=== PATIENT | male | born 1935 | race Caucasian/White ===

== ENCOUNTER 2017-08-28 16:17 | Emergency (ER) | payer MEDICARE, BC ==
[2017-08-28 16:42] VITALS: BP 192/108
--- NOTE | 2017-08-28 17:13 | UC ---
Complaint Male HPI - HPI Summary HPI Summary: Patient has lower abdominal pain pain with urination no flank pain no fevers chills no drip. Patient has had urinary tract infections in the past feels exactly the same - History of Current Complaint Chief Complaint: UCGU Stated Complaint: STOMACH/BLADDER PAIN Time Seen by Provider: 08/28/17 17:03 Hx Obtained From: Patient Onset/Duration: Sudden Onset, Lasting Days - 2, Still Present Timing: Constant Pain Intensity: 0 Location: Suprapubic Character: Colicy Alleviating Factor(s): Nothing Associated Signs And Symptoms: Positive: Hematuria, Dysuria - Allergies/Home Medications Allergies/Adverse Reactions: Allergies Allergy/AdvReac Type Severity Reaction Status Date / Time No Known Allergies Allergy Verified 08/28/17 16:44 PMH/Surg Hx/FS Hx/Imm Hx Previously Healthy: No Endocrine History: Dyslipidemia Cardiovascular History: Cardiac Disease, Hypertension - Surgical History Surgical History: Yes Surgery Procedure, Year, and Place: prostatectomy with radiation; 09/26/13 cardiac stents and 2 stent 2012 - Family History Known Family History: Positive: None - Social History Occupation: Retired Lives: With Family Alcohol Use: None Substance Use Type: None Smoking Status (MU): Former Smoker Type: Cigarettes When Did the Patient Quit Smoking/Using Tobacco: 40 years ago - Immunization History Most Recent Influenza Vaccination: 2012 Most Recent Tetanus Shot: 2009 Most Recent Pneumonia Vaccination: 2007 Review of Systems Constitutional: Negative Skin: Negative Eyes: Negative ENT: Negative Respiratory: Negative Cardiovascular: Negative Gastrointestinal: Negative Genitourinary: Dysuria, Urgency Motor: Negative Neurovascular: Negative Musculoskeletal: Negative Neurological: Negative Psychological: Negative Is Patient Immunocompromised?: No All Other Systems Reviewed And Are Negative: Yes Physical Exam Triage Information Reviewed: Yes Appearance: Well-Appearing, No Pain Distress, Well-Nourished Vital Signs: Initial Vital Signs Temp 97.6 F 08/28/17 16:37 Pulse 88 08/28/17 16:37 Resp 14 08/28/17 16:37 BP 192/108 08/28/17 16:37 Pulse Ox 98 08/28/17 16:37 Vital Signs Reviewed: Yes Eye Exam: Normal Eyes: Positive: Conjunctiva Clear ENT Exam: Normal ENT: Positive: Normal ENT inspection, Hearing grossly normal. Negative: Nasal congestion, Nasal drainage, Muffled voice, Hoarse voice, Dental tenderness Dental Exam: Normal Neck exam: Normal Neck: Positive: Supple, Nontender Respiratory Exam: Normal Respiratory: Positive: Chest non-tender, No respiratory distress, No accessory muscle use Cardiovascular Exam: Normal Cardiovascular: Positive: RRR, Pulses Normal, Brisk Capillary Refill Abdominal Exam: Normal Abdomen Description: Negative: CVA Tenderness (R), CVA Tenderness (L) Musculoskeletal Exam: Normal Musculoskeletal: Positive: Strength Intact, ROM Intact Neurological Exam: Normal Neurological: Positive: Alert, Muscle Tone Normal Psychological Exam: Normal Skin Exam: Normal Diagnostics - Laboratory Diagnostic Studies Completed/Ordered: +nitrates, +blood, +protien+Leuks----Past MRSA in Urine Complaint Male Course/Dx - Course Course Of Treatment: Culture urine, start Bactrim and Pyridium, follow with urology. We'll follow blood pressure with PCP this week - Differential Dx/Diagnosis Provider Diagnoses: Urinary tract infection, hypertension in poor control Discharge - Sign-Out/Discharge Documenting (check all that apply): Discharge/Admit/Transfer - Discharge Plan Condition: Stable Disposition: HOME Prescriptions: Phenazopyridine TAB* [Pyridium 100 mg TAB*] 100 mg PO TID PRN #9 tab PRN Reason: urinary pain and burning Sulfamethox/Trimethoprim DS* [Bactrim DS 800/160 TAB*] 1 tab PO BID #20 tab Patient Education Materials: Phenazopyridine (By mouth), Urinary Tract Infection in Men (ED), Hematuria (ED), Hypertension (ED), Urinary Tract Infection in Older Adults (ED) Referrals: Edwin Márquez MD [Primary Care Provider] - 1 Week - Billing Disposition and Condition Condition: STABLE Disposition: HOME
== END 2017-08-28 17:30 | disposition home or self-care (01) ==
LOC: UCEAST 16:17
DX: N39.0 Urinary tract infection, site not specified (principal); R31.9 Hematuria, unspecified; Z87.440 Personal history of urinary (tract) infections; E78.5 Hyperlipidemia, unspecified; I10 Essential (primary) hypertension; I51.9 Heart disease, unspecified; Z95.5 Presence of coronary angioplasty implant and graft; Z86.14 Personal history of Methicillin resistant Staphylococcus aureus infection; Z87.891 Personal history of nicotine dependence
CPT/HCPCS: 81003; 87077; 87086; 87186; 99212; G0463

== ENCOUNTER 2017-09-01 07:06 | Observation (INO) | payer MEDICARE, BC ==
[2017-09-01] MEDS ORDERED: NS 0.9% 1000 ML* 1,000 ML IV ONE (07:41)
[2017-09-01] MEDS ORDERED: cefTRIAXone(*) 1 GM in NS 0.9% 50 ML* 50 ML IVPB ONE (07:49)
--- NOTE | 2017-09-01 07:58 | ED ---
Niurka Diaz Gabriel, scribed for Filomena Leggett MD on 09/01/17 at 0740 . Altered Mental Status - HPI Summary HPI Summary: This patient is a 82 year [facility] by his from his home c/o AMS. states she found him decreased responsive and vomiting this morning so she contacted EMS. Pt was eating normally and not vomiting yesterday , although he was slightly confused yesterday. Patients reports blood glucose of 322, pt is on metformin. Patients denies diarrhea. Pt witha h/o prostate CA and recurrent UTIs. Pt was evaluated at onn 08/28/17 and dx with a UTI - started on Bactrim. Pt developed vomiting - thought to be related to bactrim - so was changed to Doxycycline. Pt has urinary incontinence at baseline related to prostate cancer treatment. is unsure if he took his medications last night and this morning. Pt does have a h/o htn - unsure of medications. states this morning pt seems confused and is having difficulty with conversation - states occurred a little yesterday, but was short lived. Pt went normally at 2130 last night when he went to bed. Patients medication list as entered at last weeks visit reviewed during this visit. LEVEL 5 CAVEAT: exam limited due to the patients decreased ability to respond. - History Of Current Complaint Chief Complaint: EDAltMentalStatus Stated Complaint: VOMITING Time Seen by Provider: 09/01/17 07:22 Hx Obtained From: Family/House Mover Supervisor Onset/Duration: Still Present, Suddenly Timing: Constant Severity Initially: Moderate Severity Currently: Moderate Character: Confusion Associated Signs And Symptoms: Positive: Vomiting - Allergies/Home Medications Allergies/Adverse Reactions: Allergies Allergy/AdvReac Type Severity Reaction Status Date / Time sulfamethoxazole Allergy Nausea And Verified 09/02/17 03:41 [From Bactrim] Vomiting trimethoprim [From Bactrim] Allergy Nausea And Verified 09/02/17 03:41 Vomiting Home Medications: Home Medications Aspirin EC TAB* [Ecotrin EC Low Dose 81 MG*] 81 mg PO DAILY 09/01/17 [History Confirmed 09/01/17] Cholecalciferol TAB* [Vitamin D TAB*] 1,000 unit PO DAILY 09/01/17 [History Confirmed 09/01/17] Cinnamon Bark [Cinnamon] 500 mg PO EVERY OTHER DAY 09/01/17 [History Confirmed 09/01/17] Clopidogrel TAB* [Plavix TAB*] 75 mg PO DAILY 09/01/17 [History Confirmed ] Cranberry Fruit Extract [Cranberry] 4,200 mg PO DAILY 09/01/17 [History Confirmed 09/01/17] Cyanocobalamin TAB* [Vitamin B12 TAB*] 500 mcg PO DAILY 09/01/17 [History Confirmed 09/01/17] Metoprolol Succinate XL TAB* [Toprol XL TAB*] 50 mg PO BID 09/01/17 [History Confirmed 09/01/17] Multivitamins/Minerals TAB* [Theragran/minerals TAB*] 0.5 tab PO DAILY 09/01/17 [History Confirmed 09/01/17] Nitroglycerin TAB 0.4 MG* 0.4 mg SL Q5M PRN 09/01/17 [History Confirmed 09/01/17 ] Ubidecarenone [Co Q-10] 100 mg PO DAILY 09/01/17 [History Confirmed 09/01/17] glipiZIDE TAB.XL* [Glucotrol Xl*] 10 mg PO DAILY 09/01/17 [History Confirmed ] PMH/Surg Hx/FS Hx/Imm Hx Previously Healthy: Yes Endocrine/Hematology History: Reports: Hx Anticoagulant Therapy - ASA, Hx Diabetes Cardiovascular History: Reports: Hx Coronary Artery Disease, Hx Hypercholesterolemia, Hx Hypertension - recent decrease in meds, Hx Valvular Heart Disease Denies: Hx Angina, Hx Myocardial Infarction Respiratory History: Denies: Hx Asthma, Hx Chronic Obstructive Pulmonary Disease (COPD) History: Reports: Other Problems/Disorders - radical prostatectomy 15 yrs ago Neurological History: Denies: Hx CVA - Cancer History Cancer Type, Location and Year: prostate Hx Radiation Therapy: Yes - Surgical History Surgery Procedure, Year, and Place: prostatectomy with radiation; 09/26/13 cardiac stents and 2 stent 2012 Hx Anesthesia Reactions: No Infectious Disease History: No Infectious Disease History: Denies: History Other Infectious Disease, Traveled Outside the [place] in Last 30 Days - Family History Known Family History: Positive: None Negative: Hypertension, Seizure Disorder - Social History Occupation: Retired Lives: With Family Alcohol Use: None Substance Use Type: Reports: None Smoking Status (MU): Former Smoker Type: Cigarettes Review of Systems - ROS Summary Review of Systems Summary: LEVEL 5 CAVEAT: exam limited due to the patients decreased ability to respond. Positive: Fatigue Positive: Vomiting Positive: other - incontinence at baseline Skin: Negative Neurological: Other - AMS All Other Systems Reviewed And Are Negative: No - Comments Additional Review of Systems Comments: Pt with profound confusion - level 5 Caveat Physical Exam Triage Information Reviewed: Yes Vital Signs On Initial Exam: Initial Vitals Temp Pulse Resp BP Pulse Ox 96.5 F 88 20 218/114 97 09/01/17 07:15 09/01/17 07:15 09/01/17 07:15 09/01/17 07:15 09/01/17 07:15 Vital Signs Reviewed: Yes Completion Of Physical Exam Limited Due To: Altered Mental Status, Level 5 Appearance: Positive: No Pain Distress Skin: Positive: Warm Head/Face: Positive: Normal Head/Face Inspection Eyes: Positive: HIRAL, Conjunctiva Clear ENT: Positive: Hearing grossly normal, Other - mmpasty Neck: Positive: Supple, Nontender, No Lymphadenopathy Respiratory/Lung Sounds: Positive: Clear to Auscultation, Breath Sounds Present , Decreased Breath Sounds Cardiovascular: Positive: Normal, RRR Abdomen Description: Positive: Nontender, No Organomegaly, Soft Bowel Sounds: Positive: Hypoactive Musculoskeletal: Positive: Other - Pt moves all ext Neurological: Positive: Reflexes Intact, Receptive Aphasia, Other - Pt speaking intelligible words, follows some commands 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 Negative: Alert, Oriented to Person Place, Time, EOM Palsy, Facial Droop, Slurred Speech, Dysphagia Psychiatric: Positive: Affect/Mood Appropriate AVPU Assessment: Alert - Mitzy Coma Scale Best Eye Response: 4 - Spontaneous Best Motor Response: 5 - Purposeful Movement Best Verbal Response: 4 - Confused Coma Scale Total: 13 Diagnostics - Vital Signs Vital Signs Temp Pulse Resp BP Pulse Ox 09/01/17 07:15 96.5 F 88 20 218/114 97 - Laboratory Result Diagrams: 09/02/17 05:36 09/02/17 05:36 Lab Statement: Any lab studies that have been ordered have been reviewed, and results considered in the medical decision making process. - Radiology CXR Radiology Interpretation Completed By: Radiologist - NO ACTIVE CARDIOPULMONARY DISEASE. ED physician has reviewed this radiology report. - CT CT Brain CT Interpretation Completed By: Radiologist - NO ACUTE INTRACRANIAL PATHOLOGY. CHRONIC SMALL VESSEL ISCHEMIC CHANGES. ED physician has reviewed this radiology report. - EKG 0718 Cardiac Rate: NL EKG Rhythm: Sinus Rhythm - at 85 BPM EKG Interpretation: there are inverted T waves in lead 1 and AVL, No STEMI National Institutes Of Health - NIH Scale Level of Consciousness: Responds to Minor Stimulation Ask Patient the Month and His/Her Age: Neither Correct/Aphasic Ask Pt to Open/Close Eyes and Certified Travel Counselor/Release Non-Paretic Hand: Both Correctly Best Gaze (Only Horizontal Eye Movement): Normal Facial Paresis-Pt to Smile & Close Eyes or Grimace Symmetry: Normal/Symmetrical Motor Function - Right Leg: Drifts LT 10 seconds Motor Function - Left Leg: Drifts LT 10 seconds Dysarthria (Read Several Words): Slurs Some Words Re-Evaluation - Re-Evaluation First Eval Re-Evaluation Time: 09:03 Change: Improved Comment: Pt Second Eval Re-Evaluation Time: 09:20 Change: Unchanged Comment: The patient had a rectal temperature of 100.4F and a [place] catheter will be placed because Fraser access could not be obtained. Altered Mental Statu Course/Dx - Course Course Of Treatment: Pt presents with progressive confusion over 24 hours. Pt with a h/o recurrent UTI and was started on bactrim -changed to Doxy. Pt with vomiting today. Pt wtih confusion - unable to give hx, difficulty following commands. differential includes sepsis, cva, electrolyte imbalance, hypertensive crisis,. Will finn culture, IV abx, code chacko, IVF, antipyretic, Labetolol with close BP monitoring - Diagnoses Provider Diagnoses: UTI (urinary tract infection), Hypertension, Confusion During the Visit The Following Alert/Code Occurred: Code Chacko - called at [address] Bacon - no lytics agree with plan to continue eval for sepsis and bp control - Provider Notifications Discussed Care Of Patient With: Cindi Perez Time Discussed With Above Provider: 09:05 Instructed by Provider To: Admit As Inpatient - Critical Care Time Critical Care Time: 30-74 min Discharge - Sign-Out/Discharge Documenting (check all that apply): Discharge/Admit/Transfer - Discharge Plan Condition: Good Disposition: ADMITTED TO [facility] - Billing Disposition and Condition Condition: GOOD Disposition: [facility]P-[facility] Consult Consult: 1855 I discussed patient care with Dr. Steel and they informed me there is no infarct seen on the CT. 0802 I discussed the case with Dr. Bacon and they recommended to wait for the labs results. Also the suggested to continue with the current metabolic treatment and that labetalol is acceptable for HTN control. The documentation as recorded by the Niurka rueda Gabriel accurately reflects the service I personally performed and the decisions made by me, Filomena Leggett MD.
--- NOTE | 2017-09-01 08:00 | RAD ---
HISTORY: Neurological changes COMPARISONS: None TECHNIQUE: Multiple contiguous axial CT scans were obtained of the head without intravenous contrast. FINDINGS: HEMORRHAGE/INFARCT: There is no hemorrhage or acute infarct. MASSES/SHIFT: There is no mass or shift. EXTRA-AXIAL SPACES: There are no extra-axial fluid collections. SULCI AND VENTRICLES: The sulci and ventricles are normal in size and position for the patient's stated age. CEREBRUM: There is multifocal hypoattenuation of the periventricular and subcortical white matter. BRAINSTEM: There are no focal parenchymal abnormalities. CEREBELLUM: There are no focal parenchymal abnormalities. VESSELS: There is calcification of the cavernous segments of the internal carotid arteries bilaterally and of the distal left vertebral artery. PARANASAL SINUSES: The paranasal sinuses are clear. ORBITS: The orbits are unremarkable. BONES AND SOFT TISSUE: No bone or soft tissue abnormalities are noted. OTHER: None IMPRESSION: NO ACUTE INTRACRANIAL PATHOLOGY. CHRONIC SMALL VESSEL ISCHEMIC CHANGES. PRELIMINARY FINDINGS WERE DISCUSSED WITH DR. SILVA AT APPROXIMATELY 7:56 AM ON SEPTEMBER 01, 2017.
[2017-09-01] MEDS ORDERED: Labetalol IV* 5 MG/ML 20 ML VIAL IV PUSH ONE ×2 (08:12→09:00)
[2017-09-01 08:18] LABS: ABS Basophils 0 10^3/ul (0-0.2); ABS Eosinophils 0.1 10^3/ul (0-0.6); ABS Lymphocytes 0.8 10^3/ul (1.0-4.8); ABS Monocytes 0.4 10^3/ul (0-0.8); ABS Neutrophils 9.9 10^3/ul (1.5-7.7); ABS Nucleated RBC 0 10^3/ul; Eosinophil % 0.5 % (0-6); Hematocrit 41 % (42-52); Hemoglobin 14.1 g/dl (14.0-18.0); Mean Corpuscular HGB Conc 34 g/dl (31-36); Mean Corpuscular Hemoglobin 31 pg (27-31); Mean Corpuscular Volume 91 fL (80-94); Nucleated Red Blood Cells % 0; Platelet Count 201 10^3/ul (150-450); Red Blood Count 4.55 10^6/ul (4.0-5.4); Red Cell Distribution Width 13 % (10.5-15); White Blood Count 11.2 10^3/ul (3.5-10.8)
[2017-09-01 08:35] LABS: INR 0.93 (0.77-1.02)
[2017-09-01 08:36] LABS: EGFR Non-African American 65.5 (>60)
--- NOTE | 2017-09-01 08:47 | RAD ---
HISTORY: Neurological changes COMPARISONS: None VIEWS: 1: frontal portable view of the chest at 8:25 AM. The left costophrenic angle is cut off FINDINGS: LINES AND TUBES: None. CARDIOMEDIASTINAL SILHOUETTE: The cardiomediastinal silhouette is normal for portable technique. PLEURA: The right costophrenic angle is sharp. The left costophrenic angle is cut off. No pleural abnormalities are noted. LUNG PARENCHYMA: The lungs are clear. ABDOMEN: The upper abdomen is clear. There is no subphrenic gas. BONES AND SOFT TISSUES: The patient is status post median sternotomy. IMPRESSION: NO ACTIVE CARDIOPULMONARY DISEASE.
[2017-09-01] MEDS ORDERED: Acetaminophen SUPP* 650 MG SUPP PR ONE (09:21)
[2017-09-01] MEDS ORDERED: hydrALAZINE IV* 20 MG/ML VIAL IV SLOW PU PRN (10:10)
[2017-09-01] MEDS ORDERED: Acetaminophen TAB* 325 MG PO PRN (10:11)
[2017-09-01] MEDS ORDERED: Dextrose 50% Syringe 50 ML* 25 GM/50 ML SYRINGE IV PUSH PRN (10:12)
[2017-09-01] MEDS ORDERED: Magnesium Sulfate IV* 3 GM in NS 0.9% 100 ML* 100 ML IVPB ONE (11:00)
--- NOTE | 2017-09-01 12:53 | HP ---
CC: Dr. Silverio Márquez.* HISTORY AND PHYSICAL: DATE OF ADMISSION: 09/01/17. PRIMARY CARE PROVIDER: Edwin Márquez MD. ATTENDING PHYSICIAN: Cindi ePrez MD * (dictated by Jessica Zavala NP). CHIEF COMPLAINT: Confusion. HISTORY OF PRESENT ILLNESS: Mr. Lorenz is an 82-year-old male with past medical history significant for diabetes mellitus, hypertension, prostate cancer status post radical prostatectomy and radiation therapy, urinary incontinence, coronary artery disease, hyperlipidemia, and osteoarthritis who had been in his usual state of health leading up to 08/28/17 when he was seen at urgent care and was diagnosed with urinary tract infection and started on Bactrim. The patient is confused, unable to answer any questions and HPI and history all obtained from the patient's and medical record. When the patient's sensitivities came back and he was complaining of vomiting, he was changed to doxycycline for his UTI by a provider at urgent care. According to his , he was in his normal state of health yesterday, although he had had momentary confusion that quickly resolved yesterday. She states that he has had no complaints of fever, chills, chest pain, shortness of breath, abdominal pain, urinary symptoms. She states he has had nausea and vomiting secondary to the Bactrim he was taking. He has urinary incontinence secondary to history of radical prostatectomy and pelvic radiation. He was in his normal state of health at approximately 9:30 last night when he went to bed. He woke up this morning and was found to be confused by his . She is unsure if he has taken any of his medications last night or this morning. Patient was having difficulty having a conversation this morning. Due to his confusion she called EMS. While in the emergency room, the patient was found to be hypertensive with systolic blood pressures into the two-teens and the diastolic blood pressures into the one- teens. He had labs drawn that were remarkable for mild leukocytosis with a white blood cell count of 11.2. He was found to have hypomagnesemia. He did not have an elevated lactic acid. He had a low grade fever of 100.6 rectally. He received labetalol when his blood pressure improved down to the 140s systolically. The patient continued to have confusion. He was started on ceftriaxone for his UTI. He previously grew E. coli and it was sensitive to ceftriaxone. He had an NIH scale at 7:40 am of 7. He also received 1 L normal saline. The hospitalists were asked to evaluate the patient for admission. PAST MEDICAL HISTORY: 1. Diabetes mellitus. 2. Hypertension. 3. Prostate cancer, status post prostatectomy and radiation. 4. Urinary incontinence secondary to prostatectomy. 5. Coronary artery disease. 6. Hyperlipidemia. 7. Osteoarthritis. PAST SURGICAL HISTORY: 1. Status post radical prostatectomy. 2. Status post porcine aortic valve replacement. 3. Status post coronary artery bypass graft x1 vessel. 4. Status post 8 coronary artery stents. HOME MEDICATIONS: Include, 1. Cranberry extract 4200 mg oral daily. 2. CoQ-10 100 mg oral daily. 3. Vitamin B12 at 500 mcg oral daily. 4. Nitroglycerin 0.4 mg sublingual every 5 minutes as needed for chest pain. 5. Multivitamin half a tab oral daily. 6. Cinnamon bark 500 mg oral every other day. 7. Vitamin D 1000 units oral daily. 8. Elmiron 100 mg oral 3 times daily. 9. Plavix 75 mg oral daily. 10. Aspirin 81 mg oral daily. 11. Glipizide XL 10 mg oral daily. 12. Metoprolol succinate 50 mg oral twice daily. 13. Losartan 25 mg oral daily. 14. Metformin 500 mg oral every morning. 15. Metformin 1000 mg oral every evening. 16. Doxycycline 100 mg oral twice daily. 17. Atorvastatin 40 mg oral daily at bedtime. 18. Pyridium 100 mg oral 3 times as needed for urinary discomfort. 19. Amoxicillin 500 mg oral 2 hours prior to dental appointment. ALLERGIES: BACTRIM causes nausea and vomiting. FAMILY HISTORY: Patient's father passed from an ME in his 40s. He had a history of rheumatic heart disease. He had a brother who had heart disease. Patient's daughter has a history of diabetes mellitus. He has no family history of cancer. SOCIAL HISTORY: The patient is a former smoker. He has an approximate 16-year smoking history. According to his , he does not drink alcohol or use recreational drugs. His Shannon Lorenz with his daughter Qiana will be his surrogate decision makers in the event he is unable to make decisions for himself. REVIEW OF SYSTEMS: I performed an 11-point review of systems. All the pertinent positives and negatives are mentioned in the history of present illness. The remaining review of systems is negative. PHYSICAL EXAMINATION GENERAL APPEARANCE: The patient is alert, pleasant, and appears to be in no acute distress. VITAL SIGNS: Temperature 100.6, heart rate 85, respiratory rate 16, O2 sat 96% on room air, blood pressure 118/110. HEENT: Normocephalic, atraumatic. Pupils are equal and reactive to light. Extraocular movements are intact. RESPIRATORY: There is no accessory muscle use. The lungs are clear to auscultation bilaterally. CARDIOVASCULAR: Regular rate and rhythm, S1 and S2 present. There are no murmurs, rubs, or gallops heard. ABDOMEN: Soft, nontender, nondistended. Bowel sounds present x4. EXTREMITIES: There is no lower extremity edema. DP and PT pulses are 1+ and symmetric. NEUROLOGICAL: Cranial nerves II through XII are grossly intact. He has equal hand manager farm, equal dorsi and plantar flexion. He is able to lift both legs off the bed. His smile is symmetric. The patient is able to follow most commands. He would not stick his tongue out for me. MUSCULOSKELETAL: There is no clubbing or cyanosis noted. The patient exhibits good strength in all extremities. The patient is alert and confused. He is oriented to self only. PSYCHOLOGICAL: The patient is calm and mostly cooperative. SKIN: There are no rashes or abnormalities seen. DIAGNOSTIC STUDIES/LABORATORY DATA: Sodium 133, potassium 5.0, chloride 100, CO2 25, BUN 22, creatinine 1.08, glucose 265, white blood cell count of 11.2, hemoglobin 14.1, hematocrit 41, platelet count 206, magnesium 1.6, CRP 10.06, lactic acid 1.6. EKG shows a sinus rhythm at a rate of 85. There is flat T-waves in V5 and 6 and T- wave inversion in aVL. When compared to previous EKG from 09/27/13, this is similar with the exception that he had T-wave inversion in V5 to V6 at that time. Brain CT from today. Radiologist's impression: No acute intracranial pathology. Small chronic vessel ischemic changes. Chest x-ray from today. Radiologist's impression: No active cardiopulmonary disease. IMPRESSION: Mr. Lorenz is an 82-year-old male with a past medical history significant for diabetes mellitus, hypertension, prostate cancer, urinary incontinence, coronary artery disease, hyperlipidemia, and osteoarthritis who presents to the emergency room with confusion after recently being diagnosed with a urinary tract infection. He will be admitted as an observation for confusion, UTI, and hypertensive emergency. ASSESSMENT/PLAN: 1. Hypertensive emergency. I suspect this is causing some of the patient's confusion. His systolic blood pressures were in the two-teens upon arrival to the emergency room. While in the emergency room, he received labetalol and his blood pressure improved to the 140s systolic. We will continue him on his home oral antihypertensives and as needed hydralazine. 2. Confusion. Again, I believe, this is secondary to hypertensive emergency. It could also be secondary to a metabolic cause such as his urinary tract infection. We are going to continue him on IV ceftriaxone. They were unable to obtain a urinalysis in the emergency room. We will attempt to get another one urinalysis. We will get neurological checks every 4 hours. 3. Hypomagnesemia. The patient will receive magnesium replacement. We will check in the morning. 4. Urinary tract infection. The patient was diagnosed with a urinary tract infection on 08/28/17 at which time he was started he was started on Bactrim. Due to nausea and vomiting he was transitioned to doxycycline. The plan would be to continue the patient on ceftriaxone and try to obtain another set of blood cultures drawn. I do not feel that he has sepsis at this time. He is nontoxic appearing. He has no lactic acidosis. He has a mild fever and a mild leukocytosis. I will check a renal and bladder ultrasound. 5. Diabetes mellitus. We will hold the patient home metformin and glipizide. We will place him on Lispro sliding scale with fingersticks a.c. and h.s. 6. Hyperlipidemia. The patient will be continued on his home statin. 7. Coronary artery disease. Patient has no signs of an ME at this time. He will be continued on his home aspirin, Plavix, metoprolol and statin. 8. History of prostate cancer. The patient is status radiation and radical prostatectomy. He has had urinary incontinence for several years. We do provide him with supportive care for his urinary incontinence. He will continue to follow his primary as outpatient. 9. Fluids, electrolytes and nutrition. The patient will be on a heart-healthy consistent carbohydrate diet. 10. Code status. Full code. 11. DVT prophylaxis. He is at high risk and will have subcu heparin. 12. Disposition. Observation. TIME SPENT: Time for this admission was approximately 60 minutes, greater than half of that was spent with the patient and his discussing medications, past medical history, the events leading up to his arrival today, performing a physical examination. The case has been reviewed with the attending, Dr. Perez, who agrees with the plan of care. Reviewed by LENNOX CLEARY 09/01/17 [id number] [id number]/[facility] #: [id number] MTDD
[2017-09-01] MEDS: NS 0.9% 1000 ML* 1,000 ML IV SCH (13:03)
[2017-09-01] MEDS: Insulin LISPRO* 1 UNITS UNIT SUBCUT SCH ×2 (13:19→17:03)
[2017-09-01] MEDS: Heparin VIAL(*) 5000 UNITS/ML VIAL (FIVE THOUSAND) SUBCUT SCH ×2 (13:19→22:32)
[2017-09-01] MEDS: Metoprolol Succinate XL TAB* 50 MG PO SCH ×2 (13:19→22:31)
[2017-09-01] MEDS: Losartan TAB* 25 MG PO SCH (13:19)
[2017-09-01] MEDS: [UNRECOGNIZED DRUG - OTHER] PO SCH ×2 (13:24→22:33)
--- NOTE | 2017-09-01 15:25 | RAD ---
Indication: Urinary tract infection. Incontinent. Comparison: December 02, 2010 CT. Technique: Ultrasound kidneys and urinary bladder. Report: 11.3 x 5.6 x 5.5 cm RIGHT kidney excluding 3.8 x 4.1 x 4.2 cm exophytic simple cyst at the inferior pole. Normal renal cortical echogenicity. No conspicuous stones or hydronephrosis. 11.3 x 5.8 x 4.9 cm LEFT kidney with 3.0 x 2.2 x 3.6 cm exophytic cyst at the inferior pole. Normal cortical echogenicity. No conspicuous stones or hydronephrosis. Prevoid urinary bladder volume estimated at 161 mL. 2 mm bladder wall thickness. No focal bladder lesions visualized. The patient was unable to void with Alzheimer disease and incontinence limiting active voiding for the exam. Bilateral ureteral jets documented. IMPRESSION: 1. Negative for obstructive uropathy. 2. No visualized urolithiasis. 3. Prevoid urinary bladder volume estimated at 161 mL. 2 mm bladder wall thickness. No focal bladder lesions visualized. The patient was unable to void with Alzheimer disease and incontinence limiting active voiding for the exam.
[2017-09-01 17:03] LABS: Urine Appearance Cloudy; Urine Blood Negative (Negative); Urine Color Yellow; Urine Ketones Negative (Negative); Urine Protein Negative (Negative); Urine Specific Gravity 1.019 (1.010-1.030); Urine Urobilinogen Negative (Negative)
[2017-09-01] MEDS ORDERED: Atorvastatin* 40 MG TAB PO SCH (21:00)
[2017-09-02] MEDS: NS 0.9% 1000 ML* 1,000 ML IV SCH (05:33)
[2017-09-02] MEDS: Heparin VIAL(*) 5000 UNITS/ML VIAL (FIVE THOUSAND) SUBCUT SCH ×2 (05:33→13:11)
[2017-09-02 05:50] LABS: ABS Basophils 0 10^3/ul (0-0.2); ABS Eosinophils 0.1 10^3/ul (0-0.6); ABS Lymphocytes 1.6 10^3/ul (1.0-4.8); ABS Monocytes 0.5 10^3/ul (0-0.8); ABS Nucleated RBC 0 10^3/ul; Eosinophil % 1.8 % (0-6); Hematocrit 37 % (42-52); Hemoglobin 12.8 g/dl (14.0-18.0); Lymphocyte % 25.3 % (25-47); Mean Corpuscular HGB Conc 35 g/dl (31-36); Mean Corpuscular Hemoglobin 32 pg (27-31); Mean Corpuscular Volume 91 fL (80-94); Mean Platelet Volume 8.1 um3 (7.4-10.4); Nucleated Red Blood Cells % 0; Platelet Count 161 10^3/ul (150-450); Red Blood Count 4.08 10^6/ul (4.0-5.4); Red Cell Distribution Width 13 % (10.5-15); White Blood Count 6.2 10^3/ul (3.5-10.8)
[2017-09-02 06:10] LABS: EGFR Non-African American 73.2 (>60)
[2017-09-02] MEDS: Metoprolol Succinate XL TAB* 50 MG PO SCH (08:09)
[2017-09-02] MEDS: Losartan TAB* 25 MG PO SCH (08:09)
[2017-09-02] MEDS: Insulin LISPRO* 1 UNITS UNIT SUBCUT SCH ×2 (08:10→12:03)
[2017-09-02] MEDS: [UNRECOGNIZED DRUG - OTHER] PO SCH ×2 (08:17→13:13)
[2017-09-02] MEDS ORDERED: cefTRIAXone(*) 1 GM in NS 0.9% 50 ML* 50 ML IVPB SCH (09:00)
[2017-09-02] MEDS ORDERED: Cyanocobalamin TAB* 500 MCG PO SCH (09:00)
[2017-09-02] MEDS ORDERED: Cholecalciferol TAB* 1000 UNITS PO SCH (09:00)
[2017-09-02] MEDS ORDERED: Aspirin EC TAB* 81 MG TAB.EC PO SCH (09:00)
[2017-09-02] MEDS ORDERED: Clopidogrel TAB* 75 MG PO SCH (09:00)
[2017-09-02] MEDS ORDERED: Multivitamins/Minerals TAB PO SCH (09:00)
--- NOTE | 2017-09-02 10:57 | PN ---
Subjective Date of Service: 09/02/17 Interval History: Mr. Lorenz reports that he is feeling much better and his family confirms that he is back to baseline in terms of mentation. He and his family are very eager for discharge to home. Objective Active Medications: Acetaminophen (Tylenol Tab*) 650 mg PO Q4H PRN Aspirin (Aspirin Ec Tab*) 81 mg PO DAILY HAZEL Atorvastatin Calcium (Lipitor*) 40 mg PO BEDTIME HAZEL Cholecalciferol (Vitamin D Tab*) 1,000 units PO DAILY HAZEL Clopidogrel Bisulfate (Plavix Tab*) 75 mg PO DAILY HAZEL Cyanocobalamin (Vitamin B12 Tab*) 500 mcg PO DAILY HAZEL Dextrose (D50w Syringe 50 Ml*) 12.5 gm IV PUSH .FOR FS < 60 - SS PRN Heparin Sodium (Porcine) (Heparin Vial(*)) 5,000 units SUBCUT Q8HR HAZEL Hydralazine HCl (Apresoline Iv*) 5 mg IV SLOW PU Q6H PRN Ceftriaxone Sodium 1 gm/ (Sodium Chloride) 50 mls @ 200 mls/hr IVPB Q24H HAZEL Sodium Chloride (Ns 0.9% 1000 Ml*) 1,000 mls @ 75 mls/hr IV PER RATE HAZEL Insulin Human Lispro (Humalog*) 0 - 10 units SUBCUT AC HAZEL Losartan Potassium (Cozaar Tab*) 25 mg PO DAILY HAZEL Metoprolol Succinate (Toprol Xl Tab*) 50 mg PO BID HAZEL Multivitamins/Minerals (Theragran/Minerals Tab*) 0.5 tab PO DAILY HAZEL Pentosan Polysulfate Sodium (Elmiron (Nf)) 100 mg PO TID [facility] Vital Signs: Temp Pulse Resp BP Pulse Ox 99.0 F 78 14 166/76 97 09/02/17 07:13 09/02/17 08:54 09/02/17 07:13 09/02/17 08:54 09/02/17 08:54 Oxygen Devices in Use Now: None Appearance: Male lying in bed in NAD Eyes: No Scleral Icterus Ears/Nose/Mouth/Throat: Mucous Membranes Moist Neck: Trachea Midline Respiratory: Symmetrical Chest Expansion and Respiratory Effort, Clear to Auscultation Cardiovascular: NL Sounds; No Murmurs; No JVD, No Edema Abdominal: NL Sounds; No Tenderness; No Distention Lymphatic: No Cervical Adenopathy Extremities: No Edema Skin: No Rash or Ulcers Neurological: Alert and Oriented x 3, NL Muscle Strength and Tone Nutrition: Taking PO's Result Diagrams: 09/02/17 05:36 09/02/17 05:36 Microbiology and Other Data: . Assess/Plan/Problems-Billing Assessment: Mr. Lorenz is an 82 yo M with a PMH of DM, HTN, prostate cancer s/p prostatectomy with urinary incontinence, and CAD with hx of CABG who was admitted on 09/01/17 with altered mental status secondary to hypertensive emergency. - Patient Problems (1) Altered mental status Comment: - Resolved. - Suspected secondary to hypertensive emergency. (2) Hypertensive emergency Comment: - SBP has remained elevated, 196/100 this AM. - Stop IVF. - Increase losartan to 50mg po daily and add hydrocholorothiazide. Continue metoprolol. - This afternoon SBP 150s, patient asymptomatic. (3) UTI (urinary tract infection) Comment: - Trace leuk esterase and no bacteria. - Complete course of doxycycline as ordered outpatient. (4) CAD (coronary artery disease) Comment: - Asymptomatic. - Continue aspirin, clopidogrel, and atorvastatin, continue losartan and metoprolol. (5) DVT prophylaxis Comment: - Heparin SQ. (6) Full code status Comment: Status and Disposition: OBV. Discharge to home.
[2017-09-02] MEDS ORDERED: Losartan TAB* 25 MG PO ONE (10:59)
[2017-09-02 11:24] VITALS: BP 155/70
[2017-09-03] MEDS ORDERED: Losartan TAB* 25 MG PO SCH (09:00)
--- NOTE | 2017-09-03 11:45 | DS ---
CC: Dr. Márquez * [facility] MEDICINE DISCHARGE SUMMARY: DATE OF ADMISSION: 09/01/17 DATE OF DISCHARGE: 09/02/17 PRIMARY CARE PHYSICIAN: Dr. Márquez. ATTENDING PHYSICIAN: Dr. Nidia Ding * (dictation provided by Chiqui Stovall NP ). PRIMARY DIAGNOSES: 1. Altered mental status. 2. Hypertensive emergency. SECONDARY DIAGNOSES: 1. Recent urinary tract infection, under appropriate outpatient treatment. 2. Type 2 diabetes. 3. Hypertension. 4. History of prostate cancer, status post prostatectomy and radiation. 5. Urinary incontinence secondary to prostatectomy. 6. Coronary artery disease. 7. Dyslipidemia. 8. Osteoarthritis. PAST SURGICAL HISTORY: 1. Status post radical prostatectomy. 2. Status post porcine aortic valve replacement. 3. Status post coronary artery bypass graft x1 vessel. 4. Status post 8 coronary artery stents. MEDICATIONS AT THE TIME OF DISCHARGE: 1. Losartan 50 mg p.o. daily (new increased dose). The remainder of the medications are unchanged. They are: 1. Cranberry extract 4200 mg oral daily. 2. CoQ10 100 mg oral daily. 3. Vitamin B12 500 mcg oral daily. 4. Nitroglycerin 0.4 mg sublingually as needed. 5. Multivitamin half a tab oral daily. 6. Cinnamon bark 500 mg oral every other day. 7. Vitamin D 1000 units oral daily. 8. Elmiron 100 mg 3 times daily. 9. Plavix 75 mg p.o. daily. 10. Aspirin 81 mg p.o. daily. 11. Glipizide XL 10 mg p.o. daily. 12. Metoprolol succinate 50 mg b.i.d. 13. Losartan 25 mg p.o. daily. 14. Metformin 500 mg in the morning and 1000 mg in the evening. 15. Doxycycline 100 mg oral twice daily. 16. Atorvastatin 40 mg oral at bedtime. 17. Pyridium 100 mg as needed for urinary discomfort. 18. Amoxicillin prior to dental appointments. HOSPITAL COURSE: Mr. Lorenz is an 82-year-old male with a past medical history of diabetes, hypertension, coronary artery disease with CABG and stent placement, as well as prostate cancer, status post prostatectomy with radiation , and urinary incontinence, who presented to the hospital on 09/01/17 with concern for confusion. Please see the dictated H and P from Jessica Zavala for complete details. In brief, the patient had recently been seen at the urgent care center on 08/28/17 with concern for urinary tract infection and was started on Bactrim. The patient had nausea and vomiting, and based on the sensitivities from that urine culture on 08/28/17, the patient was switched to doxycycline, which he has been tolerating. The patient was well the night before arrival to the emergency room, but that morning he awoke and was very confused. In the emergency room, the patient had blood pressure systolically in the 210s, diastolic blood pressure into the 110s. Labs otherwise showed a very mild leukocytosis, white blood cell count of 11.2. His BUN and creatinine were normal. C-reactive protein was 10.06. He was noted to have a low-grade fever to 100.6 in the ED rectally. The patient's urinalysis on arrival showed trace leuk esterase and absent bacteria. Urine culture from 08/28/17 was reviewed, again showing the E. coli, which is essentially pansensitive. Mr. Lorenz is admitted to the hospital. His blood pressure was treated in the emergency room with labetalol. He had hydralazine available p.r.n. through the night. This morning, his blood pressure was running 195/100. He was asymptomatic. At that point, I increased his losartan from 25 mg daily to 50 mg daily and he is continued on his home metoprolol succinate at 50 mg p.o. b.i.d. This afternoon, the patient's blood pressure is 156/70. His confusion is completely resolved and his family is eager to take him home. I suspect at this time that Mr. Lorenz's altered mental status is related to hypertensive emergency. He states that he had a similar episode many decades ago, but has had no such episodes recently. He denies any recent unusual salt intake. Our plans are to discharge him to home on increased dose of losartan with close followup with Dr. Márquez. In terms of the low-grade fever, the patient has no evidence of infection. Again, there is no bacteria in the urine. He has an essentially normal CRP and white count. His chest x-ray showed no acute process, and he also had an abdomen and bladder ultrasound, which showed no acute abnormality. Mr. Lorenz is medically stable for discharge to home to follow up with Dr. Márquez regarding uncontrolled blood pressure. DISPOSITION: Home. DIET: Consistent carbohydrate, low fat, low salt. ACTIVITY: As tolerated. FOLLOWUP PLANS: Please follow up with Dr. Márquez in the next 1 to 2 weeks. TIME SPENT: Approximately 60 minutes were spent in the discharge of this patient, more than half that time spent with the patient at the bedside reviewing the events leading up to this hospitalization, performing the physical examination, and reviewing the plan of care. CHIQUI STOVALL NP [id number]/[facility] #: [id number] SADE
== END 2017-09-02 14:11 | disposition home or self-care (01) ==
LOC: ED 07:06 → MEDTELE 10:08
PROVIDERS: ADMIT Internal Medicine; ATTEND Internal Medicine
DX: I16.1 Hypertensive emergency (principal); R41.82 Altered mental status, unspecified; N39.0 Urinary tract infection, site not specified; E11.9 Type 2 diabetes mellitus without complications; Z85.46 Personal history of malignant neoplasm of prostate; N39.498 Other specified urinary incontinence; I25.10 Atherosclerotic heart disease of native coronary artery without angina pectoris; E78.5 Hyperlipidemia, unspecified; M19.90 Unspecified osteoarthritis, unspecified site; Z79.899 Other long term (current) drug therapy; Z95.4 Presence of other heart-valve replacement; Z95.1 Presence of aortocoronary bypass graft; Z95.5 Presence of coronary angioplasty implant and graft; Z79.01 Long term (current) use of anticoagulants; Z79.84 Long term (current) use of oral hypoglycemic drugs; Z88.0 Allergy status to penicillin; Z87.891 Personal history of nicotine dependence; Z82.49 Family history of ischemic heart disease and other diseases of the circulatory system; R94.31 Abnormal electrocardiogram [ECG] [EKG]
CPT/HCPCS: 36415; 70450; 71045; 76770; 80048; 80053; 80061; 81003; 81015; 83605; 83735; 84484; 85025; 85610; 85730; 86140; 86850; 86900; 86901; 87040; 87086; 87641; 93005; 96365; 96366; 96367; 96372; 96375; 99285; A9270-GY; G0378; J0360; J0696; J1644; J3475

== ENCOUNTER 2017-11-21 08:05 | Emergency (ER) | payer MEDICARE, BC ==
--- NOTE | 2017-11-21 08:44 | UC ---
Complaint Male HPI - HPI Summary HPI Summary: patient is an 82 year old male with history of urinary incontinence and frequent UTI's, his states that he has been sleeping more, more confused, had a fever last night, although he is afebrile today. he denies any pain or discomfort. patient is able to answer simple questions, states he is normally more talkative and able to make his needs known. - History of Current Complaint Chief Complaint: UCGeneralIllness Stated Complaint: ELEVATED TEMP, VOMMITTING Time Seen by Provider: 11/21/17 08:16 Hx Obtained From: Patient Onset/Duration: Sudden Onset, Lasting Days Timing: Constant Severity Initially: Mild Severity Currently: None Pain Intensity: 0 Location: None - Allergies/Home Medications Allergies/Adverse Reactions: Allergies Allergy/AdvReac Type Severity Reaction Status Date / Time sulfamethoxazole Allergy Nausea And Verified 11/21/17 08:17 [From Bactrim] Vomiting trimethoprim [From Bactrim] Allergy Nausea And Verified 11/21/17 08:17 Vomiting Home Medications: Home Medications Acetaminophen [Extra Strength Non-Aspirin] 500 mg PO 11/21/17 [History] Losartan TAB* [Cozaar TAB*] 25 mg PO DAILY 11/21/17 [History] PMH/Surg Hx/FS Hx/Imm Hx Previously Healthy: No Endocrine History: Diabetes Cardiovascular History: Cardiac Disease Other History Of: Anticoagulant Therapy - ASA - Surgical History Surgical History: Yes Surgery Procedure, Year, and Place: prostatectomy with radiation; 09/26/13 cardiac stents and 2 stent 2012 ,aeortic valve replacement, open heart surgery, bypass - Family History Known Family History: Positive: None Negative: Hypertension, Seizure Disorder - Social History Alcohol Use: None Substance Use Type: None Smoking Status (MU): Former Smoker Type: Cigarettes When Did the Patient Quit Smoking/Using Tobacco: 40 years ago - Immunization History Most Recent Influenza Vaccination: 2012 Most Recent Tetanus Shot: 2009 Most Recent Pneumonia Vaccination: 2007 Review of Systems Constitutional: Fatigue Skin: Negative Eyes: Negative ENT: Negative Respiratory: Negative Cardiovascular: Negative Gastrointestinal: Negative Genitourinary: Negative Motor: Negative Neurovascular: Negative Musculoskeletal: Negative Neurological: Negative Psychological: Negative Is Patient Immunocompromised?: No All Other Systems Reviewed And Are Negative: Yes Physical Exam Triage Information Reviewed: Yes Appearance: Well-Appearing, No Pain Distress, Well-Nourished Vital Signs: Initial Vital Signs Temp 96.6 F 08/12/18 08:12 Pulse 117 11/21/17 08:12 Resp 18 11/21/17 08:12 BP 111/71 11/21/17 08:12 Pulse Ox 95 11/21/17 08:12 Vital Signs Reviewed: Yes Eye Exam: Normal Eyes: Positive: Conjunctiva Clear ENT: Positive: Pharyngeal erythema - some PND noted Dental Exam: Normal Neck exam: Normal Neck: Positive: Supple, Nontender, No Lymphadenopathy Respiratory Exam: Normal Respiratory: Positive: Chest non-tender, Lungs clear, Normal breath sounds Cardiovascular Exam: Normal Cardiovascular: Positive: No Murmur, Pulses Normal, Tachycardia Abdominal Exam: Normal Abdomen Description: Positive: Nontender, No Organomegaly, Soft, CVA Tenderness (R) - neg, CVA Tenderness (L) - neg Bowel Sounds: Positive: Present Musculoskeletal Exam: Normal Musculoskeletal: Positive: Strength Intact, ROM Intact, No Edema Neurological Exam: Normal Neurological: Positive: Alert, Muscle Tone Normal Psychological: Positive: Other: - somewhat confused, answers simple questions was able to do his own urine samle Skin Exam: Normal Complaint Male Course/Dx - Course Course Of Treatment: hx obtained, exam performed ,meds reviewed, UA obtained, BS obtained - Differential Dx/Diagnosis Differential Diagnosis/HQI/PQRI: Urinary Tract Infection Provider Diagnoses: UTI. Dehydration. urinary incontinence Discharge - Sign-Out/Discharge Documenting (check all that apply): Patient Departure - Discharge Plan Condition: Stable Disposition: HOME Prescriptions: DOXYcycline CAP(*) [DOXYcycline 100MG CAP(*)] 100 mg PO BID #14 cap Patient Education Materials: Urinary Tract Infection in Men (ED) Referrals: Edwin Márquez MD [Primary Care Provider] - Additional Instructions: 1. start the medication today 2. continue increased water intake 3. Rest 4. Follow up with Dr Márquez at some point this week. 5. Follow up sooner, if you become febrile, dizzy, lightheaded, more confused, go to the ER. - Billing Disposition and Condition Condition: STABLE Disposition: Home
[2017-11-21] MEDS ORDERED: Lidocaine 1% MPF* 2 ML VIAL INJ ONE (09:10)
[2017-11-21] MEDS ORDERED: cefTRIAXone VIAL(*) 1,000 MG VIAL IM ONE (09:10)
[2017-11-21] MEDS ORDERED: cefTRIAXone VIAL(*) 1,000 MG VIAL IVPB ONE (09:15)
[2017-11-21] MEDS ORDERED: NS 0.9% 500 ML* 500 ML IV ONE (09:16)
[2017-11-21] MEDS ORDERED: NS 0.9% 1000 ML* 1,000 ML IV ONE (09:29)
[2017-11-21 10:36] VITALS: BP 134/63
--- NOTE | 2017-11-23 15:21 | UC ---
- Progress Note Progress Note: Urine final with Klebsiella pneumoniae sens to tetracycline - no change Discharge - Sign-Out/Discharge Documenting (check all that apply): Post-Discharge Follow Up - Discharge Plan Condition: Stable Disposition: HOME Prescriptions: DOXYcycline CAP(*) [DOXYcycline 100MG CAP(*)] 100 mg PO BID #14 cap Patient Education Materials: Urinary Tract Infection in Men (ED) Referrals: Edwin Márquez MD [Primary Care Provider] - Additional Instructions: 1. start the medication today 2. continue increased water intake 3. Rest 4. Follow up with Dr Márquez at some point this week. 5. Follow up sooner, if you become febrile, dizzy, lightheaded, more confused, go to the ER. - Billing Disposition and Condition Condition: STABLE Disposition: Home
== END 2017-11-21 10:47 | disposition home or self-care (01) ==
LOC: UCEAST 08:05
DX: N39.0 Urinary tract infection, site not specified (principal); R32 Unspecified urinary incontinence; E86.0 Dehydration; R53.83 Other fatigue; Z87.440 Personal history of urinary (tract) infections; Z95.1 Presence of aortocoronary bypass graft; Z95.5 Presence of coronary angioplasty implant and graft; Z95.2 Presence of prosthetic heart valve; Z79.82 Long term (current) use of aspirin; Z88.2 Allergy status to sulfonamides; Z87.891 Personal history of nicotine dependence
CPT/HCPCS: 81003; 87077; 87086; 87186; 96360; 96365; 96374; 99213; G0463; J0696

== ENCOUNTER 2018-08-12 18:33 | Emergency (ER) | payer MEDICARE, BC ==
--- OUTSIDE RECORDS SUMMARY | 2018-08-12 18:44 | XMS REPORT | Continuity of Care Document ---
:1935 External Reference #:[id number] Author Name Eileen Arevalo Care Team Providers Name Role Phone Adrienne Wallace M.D. Primary Care Physician Unavailable Payers Date Identification Numbers Payment Provider Subscriber Effective: 2000 Policy Number: [id number] Medicare Dennys Prado PayID: [id number] [address] [place] [address] Policy Number: [id number] [facility] Dennys Prado PayID: [id number] [address] [address] [place] [address] Advance Directives Type Date Description Status Comment Other Directive 12/03/2010 Health Care Proxy Current and Verified Problems Active Problems Provider Date Chronic ischemic heart disease Yogi Pelayo M.D., [facility], [facility] Onset: 2013 Essential hypertension Yogi Pelayo M.D., [facility], [facility] 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/2013 Hyperlipidemia Yogi Pelayo M.D., [facility], [facility] 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/2013 Aortic valve disorder Yogi Pelayo M.D., [facility], [facility] 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/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 Localized, primary osteoarthritis Cain Watson MD Onset: 02/18/2015 Heart valve replacement Yogi Pelayo M.D., [facility], [facility] Onset: 12/18/2015 Coronary arteriosclerosis Yogi Pelayo M.D., [facility], [facility] Onset: 01/25/2017 Note: stented x8 Type 2 diabetes mellitus Edwin Márquez M.D.,[facility] Onset: 02/17/2017 Hemorrhagic cystitis Edwin Márquez M.D.,FACP Onset: 02/17/2017 Note: on Elmiron, post-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.,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 Note: PSA 0.3-4 range Cortical senile cataract Edwin Márquez M.D.,FACP Onset: 02/17/2017 Note: LT Paroxysmal atrial fibrillation Edwin Márquez M.D.,FACP Onset: 07/08/2018 Mitral valve regurgitation Edwin Márquez M.D.,FACP Onset: 07/08/2018 Note: moderate Family History Date Family Member(s) Observation Comments : (age 47 Years) Father due to DVT in heart Mother 85 Mother due to Stroke () Siblings 4 First Brother Brain aneurysm Second Brother Leukemia Third Brother Congestive Heart Failure (CHF) First Sister Congestive Heart Failure (CHF) Social History Type Date Description Comments Sex Unknown Marital Status Lives With Occupation retired teacher Tobacco Use Start: Unknown End: Former Cigarette Smoker Unknown Smoking Status Reviewed: 08/04/18 Former Cigarette Smoker ETOH Use Denies alcohol use Tobacco Use Start: Unknown End: Patient is a former smoker quit 1969 Unknown Recreational Drug Use Denies Drug Use Exercise Type/Frequency Exercises sporadically walking Allergies, Adverse Reactions, Alerts Active Allergies Reaction Severity Comments Date Bactrim vomiting 09/08/2017 Doxycycline Nausea and Vomiting Moderate 01/19/2018 Inactive Allergies No Known Drug Allergy 01/28/2012 Medications Active Medications SIG Qnty Indications Ordering Date Provider Losartan Potassium 1 by mouth twice 180tabs I10 Edwin Girard 06/01/2018 daily Bhargav Márquez,FACP 25mg Tablets Shingrix 0.5 milliliters 2units Edwin Girard 10/25/2017 50mcg intramuscular now Bhargav Márquez,FACP Suspension Rec and 2-3 months later repeat Thiago Contour Blood as directed 1units Edwin Girard 10/25/2017 Glucose Monitoring Bhargav Márquez,FACP System w/Device Kit Thiago Contour Blood test up to one time 100units Edwin Girard 10/25/2017 Glucose Test Strips daily as directed Bhargav Márquez,FACP Strips Metformin HCL 2 tabs by mouth 360tabs E11.21 Adrienne Wallace MD 09/08/2017 500mg twice a day Tablets Lipitor 1 by mouth every 90tabs E78.5 Manda 10/03/2013 40mg Tablets night at bedtime Bhargav Esteban Clopidogrel 1 by mouth every 30tabs Adrienne Wallace MD 08/22/2013 Bisulfate day 75mg Tablets Metoprolol Succinate 1/2 by mouth twice 90tabs I10 Mikhail Metzger 11/02/2012 ER a day DO SHAYAN BrarC 100mg Tablets ER 24HR Glipizide ER 1 by mouth daily 90tabs E11.21 Manda 10mg Bhargav Esteban Tablets ER 24HR Coenzyme Q-10 1 by mouth every Unknown 100mg day Capsules Cranberry Juice 1 capsule by mouth Unknown Extract daily 4200mg Capsules Vitamin B-12 1 by mouth every Unknown 500mcg day Tablets Multivitamins 1/2 tab by mouth Unknown every day Capsules Cinnamon Plus 1 tab every other Unknown Chromium day [id number] Capsules Aspirin 1 po qod Unknown 81mg Tablets Elmiron [facility] one capsule [facility] mouth every other Bhargav Infante Capsules day 08/08/18 will return to daily History Medications Nitrofurantoin 1 po qhs 30caps Edwin Girard 01/19/2018 - Shruthi Márquez M.D.,FACP 07/08/2018 50mg Capsules Cipro 1 by mouth twice 14tabs Manda 01/02/2018 - 500mg Tablets a day for 7 days Bhargav Esteban 01/19/2018 Doxycycline Hyclate 1 cab twice a day 28caps N39.0 Bimal 12/28/2017 - 100mg Bhargav Torre 01/19/2018 Capsules Doxycycline Hyclate 1 by mouth twice Unknown 11/21/2017 - 100mg a day x 7 days 11/28/2017 Tablets Losartan Potassium 1/2 by mouth 90tabs I10 Manda 09/02/2017 - 50mg twice day Bhargav Esteban 06/01/2018 Tablets Metformin HCL ER (Mod) one by mouth once Edwin Girard 02/17/2017 - daily Bhargav Márquez,[facility] 02/17/2017 500mg Tablets ER 24HR Nitrostat 1 tab sublingual 25tabs Yogi Pelayo, 08/18/2013 - 0.4mg Tablets as needed every 5 M.D., [facility], 07/08/2018 Sub mins x 3 [facility] Losartan 1 po qd 90tabs Yogi Pelayo, 02/20/2013 - Potassium/Hydrochlorot MDeborah, [facility], 08/14/2013 hiazide [facility] 100-12.5mg Tablets Clopidogrel 1 po qd 30tabs Yogi Pelayo, 02/20/2013 - 75mg Tablets M.DAlex, [facility], 08/22/2013 [facility] Isosorbide Mononitrate 1 po qd 90tabs Yogi Pelayo, 10/25/2012 - ER M.Shaji, [facility], 08/14/2013 60mg Tablets ER 24HR [facility] Metoprolol Succinate 1 po in am 1/2 in 150tabs Yogi Pelayo, 10/25/2012 - ER pm M.Shaji, [facility], 11/02/2012 100mg Tablets ER 24HR [facility] Metoprolol Succinate 1 po qd 30tabs Yogi Pelayo, 09/14/2012 - ER M.D., [facility], 10/25/2012 100mg Tablets ER 24HR [facility] Metoprolol Succinate 1 and 1/2 tab by 45tabs Yogi Pelayo, 08/12/2012 - ER mouth once a day M.Shaji, [facility], 09/14/2012 50mg Tablets ER 24HR [facility] Xarelto 1 by mouth every 90tabs Edwin Girard - 15mg Tablets day On Hold Bhargav Márquez,[facility] 08/03/2018 Clobetasol Propionate Jennifer Marte, - 07/08/2018 0.05% Solution Fluorouracil Jennifer Marte, - 5% Cream 07/08/2018 Sulfamethoxazole/Trime Unknown - thoprim DS 01/19/2018 800-160mg Tablets Phenazopyridine HCL Unknown - 100mg 01/19/2018 Tablets Losartan Potassium 2 tabs by mouth 30tabs Edwin Cai. - 25mg every day Bhargav Márquez,[facility] 09/02/2017 Tablets Metformin HCL ER 1 by mouth in the 90tabs Edwin Cai. - 500mg in the morning Bhargav Márquez,FACP 09/08/2017 Tablets ER 24HR and two in the evening Amoxicillin 1 capsule once 2 Unknown - 500mg Tablets hours prior to 07/28/2018 dental appt's Amiodarone HCL 2 by mouth every Unknown - 200mg day for 14 days 11/05/2014 Tablets then 1 tab daily for 14 days then stop Bumetanide 1 tab by mouth Unknown - 0.5mg Tablets every day 12/17/2015 Potassium Chloride ER 1 by mouth every Unknown - day taken along 12/17/2015 10Meq Capsules ER with Bumetanide Warfarin Sodium 1 tablet po daily Cardina, - 5mg as directed MD Carlos A 12/17/2015 Iron daily Unknown - 12/12/2014 Vitamin D3 daily Unknown - 1000Units 08/03/2018 Losartan 1 by mouth every Unknown - Potassium/Hydrochlorot day Patient 09/25/2014 hiazide Hasn't Been 50-12.5mg Tablets Taking This Medication And Wasnt Sure If He Was Supposed To Or Not Isosorbide Mononitrate 1 by mouth every Unknown - ER day 09/28/2013 60mg Tablets ER 24HR Losartan 1/2 by mouth Unknown - Potassium/Hydrochlorot every day 03/22/2014 hiazide 100-12.5mg Tablets Cinnamon daily Unknown - 08/15/2013 Isosorbide 1 tablet daily Unknown - 30mg Tablets 08/16/2013 Losartan 1 by mouth every Unknown - Potassium/Hydrochlorot day 08/16/2013 hiazide 50-12.5mg Tablets Fish Oil qd Unknown - 08/10/2013 Vitamin B-12 qd Unknown - 08/15/2013 Vitamin D3 qd Unknown - 08/15/2013 Multivitamins 1/2 tab by mouth Unknown - Chewtabs every day 08/15/2013 Metformin HCL 1 tab po qAM and 180tabs Unknown - 500mg 2 tabs qPM 02/17/2017 Tablets Glipizide 1 po qd Unknown - 10mg Tablets 02/17/2017 Lipitor 2 by mouth every 90tabs Yogi Pelayo, - 20mg Tablets day Bhargav, [facility], 10/03/2013 [facility] Medications Administered in Office Medication SIG Qnty Indications Ordering Provider Date Triamcinolone (Kenalog) Cain Watson MD 02/18/2015 Injection Inj, Regadenoson, 0.1 MG Arabella Mcgee M.D. 08/15/2013 Injection Technetium TC 99M Arabella Mcgee M.D. 08/15/2013 Tetrofosmin, Per Unit Dose Up To 40 Millicuries Injection Technetium TC 99M Yogi Pelayo M.D., [facility], 10/25/2012 Tetrofosmin, Per Unit Dose Up [facility] To 40 Millicuries Injection Immunizations CPT Code Status Date Vaccine Lot # [id number] Given 01/19/2018 Influenza Virus Vaccine, Quadrivalent, Split, [id number] Preservative Free [id number] Given 02/17/2017 Influenza Virus Vaccine, Quadrivalent, Split, [id number] Preservative Free 23284 Given 02/17/2017 Pneumococcal Conjugate Vaccine 13 Valent For [id number] Intramuscular Use 36102 Given 01/10/2014 Influenza Virus 3Yrs & Over 51521 Given 08/19/2010 Zoster (Zostavax) 53381 Given 03/25/2009 Pneumonia Vaccine Vital Signs Date Vital Result Comment 08/04/2018 9:43am Height 72 inches 6'0" Weight 229.50 lb Clothes/shoes Heart Rate 74 /min Radial BP Systolic Sitting 136 mmHg Lue reg cuff BP Diastolic Sitting 70 mmHg Lue reg cuff BP Systolic Standing 134 mmHg Lue reg cuff BP Diastolic Standing 64 mmHg Lue reg cuff BMI (Body Mass Index) 31.1 kg/m2 Ejection Fraction 50-55% Echo 06/17/2018 07/28/2018 11:36am Height 72 inches 6'0" Weight 128.00 lb Heart Rate 77 /min BP Systolic Sitting 117 mmHg BP Diastolic Sitting 73 mmHg BMI (Body Mass Index) 17.4 kg/m2 07/08/2018 11:27am Height 72 inches 6'0" Weight 224.25 lb Heart Rate 79 /min BP Systolic 136 mmHg BP Diastolic 75 mmHg Body Temperature 97.2 F O2 % BldC Oximetry 98 % BMI (Body Mass Index) 30.4 kg/m2 02/10/2018 3:18pm Weight 234.00 lb Heart Rate 80 /min BP Systolic Sitting 168 mmHg Lue large cuff BP Diastolic Sitting 96 mmHg Lue large cuff Ejection Fraction 50-55 echocardiogram 10/17/14 01/19/2018 3:04pm Height 72 inches 6'0" Weight 234.00 lb Heart Rate 88 /min BP Systolic Sitting 148 mmHg BP Diastolic Sitting 70 mmHg Body Temperature 97.2 F O2 % BldC Oximetry 96 % BMI (Body Mass Index) 31.7 kg/m2 12/28/2017 12:55pm Height 72 inches 6'0" Weight 237.00 lb Heart Rate 106 /min BP Systolic 140 mmHg BP Diastolic 80 mmHg Body Temperature 99.3 F O2 % BldC Oximetry 95 % BMI (Body Mass Index) 32.1 kg/m2 11/26/2017 10:49am Height 72 inches 6'0" Weight 236.75 lb Heart Rate 100 /min BP Systolic 120 mmHg BP Diastolic 70 mmHg O2 % BldC Oximetry 97 % BMI (Body Mass Index) 32.1 kg/m2 10/25/2017 4:29pm Height 72 inches 6'0" Weight 243.00 lb Heart Rate 86 /min BP Systolic Sitting 124 mmHg BP Diastolic Sitting 68 mmHg Body Temperature 97.5 F O2 % BldC Oximetry 97 % BMI (Body Mass Index) 33.0 kg/m2 09/08/2017 8:23am Height 72 inches 6'0" Weight 252.50 lb Heart Rate 79 /min BP Systolic 136 mmHg BP Diastolic 80 mmHg O2 % BldC Oximetry 96 % BMI (Body Mass Index) 34.2 kg/m2 07/14/2017 9:45am Weight 256.00 lb Heart Rate 77 /min BP Systolic 120 mmHg BP Diastolic 82 mmHg Body Temperature 97.0 F O2 % BldC Oximetry 95 % 02/17/2017 9:07am Height 72 inches 6'0" Weight 255.00 lb Heart Rate 76 /min BP Systolic Sitting 128 mmHg BP Diastolic Sitting 80 mmHg Body Temperature 96.8 F O2 % BldC Oximetry 97 % BMI (Body Mass Index) 34.6 kg/m2 01/25/2017 8:41am Height 71 inches 5'11" Weight 259.00 lb w/o shoes Heart Rate 40 /min regular BP Systolic Sitting 122 mmHg lue large cuff BP Diastolic Sitting 68 mmHg lue large cuff BP Systolic Standing 126 mmHg lue large cuff BP Diastolic Standing 70 mmHg lue large cuff Respiratory Rate 18 /min BMI (Body Mass Index) 36.1 kg/m2 Ejection Fraction 50-55% echo 10/17/14 12/18/2015 8:15am Height 71 inches 5'11" Weight 243.00 lb Heart Rate 70 /min 80 BP Systolic Sitting 120 mmHg right arm, large cuff BP Diastolic Sitting 88 mmHg right arm, large cuff BP Systolic Standing 124 mmHg right arm, large cuff BP Diastolic Standing 84 mmHg right arm, large cuff Respiratory Rate 16 /min BMI (Body Mass Index) 33.9 kg/m2 Ejection Fraction 50-55% 10/17/14 02/18/2015 10:38am Height 71 inches 5'11" Weight 224.00 lb BMI (Body Mass Index) 31.2 kg/m2 12/13/2014 3:42pm Height 71.5 inches 5'11.50" Weight 231.00 lb with shoes Heart Rate 70 /min irreg BP Systolic Sitting 136 mmHg LA lg cuff BP Diastolic Sitting 70 mmHg LA lg cuff BP Systolic Standing 144 mmHg LA lg cuff BP Diastolic Standing 80 mmHg LA lg cuff Respiratory Rate 17 /min BMI (Body Mass Index) 31.8 kg/m2 Ejection Fraction 50-55% date 10/17/14 ECHO 11/06/2014 1:59pm Height 71.5 inches 5'11.50" Weight 238.00 lb Heart Rate 72 /min 74 BP Systolic Sitting 140 mmHg right arm, large cuff BP Diastolic Sitting 88 mmHg right arm, large cuff BP Systolic Standing 134 mmHg right arm, large cuff BP Diastolic Standing 86 mmHg right arm, large cuff Respiratory Rate 16 /min BMI (Body Mass Index) 32.7 kg/m2 Ejection Fraction 50-55% 10/17/14 09/26/2014 1:07pm Height 71.5 inches 5'11.50" Weight 243.00 lb Heart Rate 78 /min 82 BP Systolic Sitting 108 mmHg left arm, large cuff BP Diastolic Sitting 72 mmHg left arm, large cuff BP Systolic Standing 106 mmHg left arm, large cuff BP Diastolic Standing 72 mmHg left arm, large cuff Respiratory Rate 20 /min BMI (Body Mass Index) 33.4 kg/m2 Ejection Fraction 50% 09/08/14 08/15/2014 10:07am Height 71.5 inches 5'11.50" Weight 236.00 lb Heart Rate 78 /min 82 BP Systolic Sitting 138 mmHg right arm cuff BP Diastolic Sitting 83 mmHg right arm cuff BP Diastolic Standing 72 mmHg Respiratory Rate 14 /min BMI (Body Mass Index) 32.5 kg/m2 Ejection Fraction 45-50% 08/01/14 03/23/2014 2:27pm Height 71.5 inches 5'11.50" Weight 238.00 lb Heart Rate 74 /min 80 BP Systolic Sitting 122 mmHg right arm, large cuff BP Diastolic Sitting 76 mmHg right arm, large cuff BP Systolic Standing 120 mmHg right arm, large cuff BP Diastolic Standing 76 mmHg right arm, large cuff Respiratory Rate 16 /min BMI (Body Mass Index) 32.7 kg/m2 10/03/2013 3:16pm Height 71.5 inches 5'11.50" Weight 248.00 lb Heart Rate 68 /min (sit) 72 (stand) BP Systolic Sitting 114 mmHg LA reg cuff BP Diastolic Sitting 76 mmHg LA reg cuff BP Systolic Standing 104 mmHg LA BP Diastolic Standing 74 mmHg LA Respiratory Rate 18 /min BMI (Body Mass Index) 34.1 kg/m2 09/13/2013 2:36pm Height 71.75 inches 5'11.75" Weight 249.00 lb Heart Rate 74 /min 82 BP Systolic Sitting 120 mmHg left arm, large cuff BP Diastolic Sitting 72 mmHg left arm, large cuff BP Systolic Standing 114 mmHg left arm, large cuff BP Diastolic Standing 72 mmHg left arm, large cuff Respiratory Rate 16 /min BMI (Body Mass Index) 34.0 kg/m2 08/31/2013 4:07pm Height 71.75 inches 5'11.75" Weight 248.00 lb Heart Rate 66 /min 70 BP Systolic Sitting 118 mmHg right arm, large cuff BP Diastolic Sitting 68 mmHg right arm, large cuff BP Systolic Standing 116 mmHg right arm, reg cuff BP Diastolic Standing 68 mmHg right arm, reg cuff Respiratory Rate 16 /min BMI (Body Mass Index) 33.9 kg/m2 08/18/2013 3:32pm Height 71.75 inches 5'11.75" Weight 247.00 lb Heart Rate 74 /min 80 BP Systolic Sitting 110 mmHg right arm, large cuff BP Diastolic Sitting 64 mmHg right arm, large cuff BP Systolic Standing 108 mmHg right arm, large cuff BP Diastolic Standing 60 mmHg right arm, large cuff Respiratory Rate 16 /min BMI (Body Mass Index) 33.7 kg/m2 02/20/2013 9:33am Height 71.75 inches 5'11.75" Weight 240.00 lb Heart Rate 6872 /min BP Systolic Sitting 120 mmHg right arm, large cuff BP Diastolic Sitting 72 mmHg right arm, large cuff BP Systolic Standing 120 mmHg right arm, large cuff BP Diastolic Standing 74 mmHg right arm, large cuff Respiratory Rate 14 /min BMI (Body Mass Index) 32.8 kg/m2 Results Test Date Facility Test Result H/L Range Note CBC No Diff 07/29/2018 [facility] White Blood 7.8 10^3/uL N 3.5-10.[address] [place] [address] [phone] Red Blood Count 3.87 10^6/uL Low 4.18-5.48 Hemoglobin 11.1 g/dL Low 14.0-18.0 Hematocrit 34 % Low 36-46 Mean Corpuscular Volume 89 fL N 80-94 Mean Corpuscular Hemoglobin 29 pg N 27-31 Mean Corpuscular HGB Conc 32 g/dL N 31-36 Red Cell Distribution Width 16 % High 10.5-15 Platelet Count 276 10^3/uL N 150-450 Mean Platelet Volume 8.0 fL N 7.4-10.4 Stool Occult 07/16/2018 [facility] Stool Occult SEE RESULT 1 Blood, Screen [address] Blood, [place] [address] [phone] Laboratory test 07/16/2018 [facility] Magnesium 1.9 mg/dL N 1.9-[address] [place] [address] [phone] Type & Screen 07/16/2018 [facility] Patient Blood O Positive [address] [place] [address] [phone] Antibody Screen NEGATIVE Stool Occult 07/16/2018 [facility] Stool Occult SEE RESULT 2 Blood, Screen [address] Blood, [place] [address] [phone] CBC Auto Diff 07/16/2018 [facility] White Blood 8.3 10^3/uL N 3.5-10. [address] Count 8 [place] [address] [phone] Red Blood Count 4.13 10^6/uL Low 4.18-5.48 Hemoglobin 11.8 g/dL Low 14.0-18.0 Hematocrit 36 % N 36-46 Mean Corpuscular Volume 88 fL N 80-94 Mean Corpuscular Hemoglobin 29 pg N 27-31 Mean Corpuscular HGB Conc 33 g/dL N 31-36 Red Cell Distribution Width 15 % N 10.5-15 Platelet Count 232 10^3/uL N 150-450 Mean Platelet Volume 7.8 fL N 7.4-10.4 Abs Neutrophils 5.9 10^3/uL N 1.5-7.7 Abs Lymphocytes 1.5 10^3/uL N 1.0-4.8 Abs Monocytes 0.6 10^3/uL N 0-0.8 Abs Eosinophils 0.2 10^3/uL N 0-0.6 Abs Basophils 0.1 10^3/uL N 0-0.2 Abs Nucleated RBC 0 10^3/uL Granulocyte % 70.5 % Lymphocyte % 17.7 % Monocyte % 7.4 % Eosinophil % 3.0 % Basophil % 1.4 % Nucleated Red Blood Cells % 0 Laboratory test 07/16/2018 [facility] Partial 31.0 seconds N 26.0-36.[address] [place] [address] PTT [phone] Comp Metabolic 07/16/2018 [facility] Sodium 137 mmol/L N 135- [address] [place] [address] [phone] Potassium 4.9 mmol/L N 3.5-5.0 Chloride 105 mmol/L N 101-111 Co2 Carbon Dioxide 30 mmol/L N 22-32 Anion Gap 2 mmol/L N 2-11 Glucose 154 mg/dL High 70-100 Blood Urea Nitrogen 19 mg/dL N 6-24 Creatinine 1.04 mg/dL N 0.67-1.17 BUN/Creatinine Ratio 18.3 N 8-20 Calcium 9.2 mg/dL N 8.6-10.3 Total Protein 6.5 g/dL N 6.4-8.9 Albumin 3.6 g/dL N 3.2-5.2 Globulin 2.9 g/dL N 2-4 Albumin/Globulin Ratio 1.2 N 1-3 Total Bilirubin 0.30 mg/dL N 0.2-1.0 Alkaline Phosphatase 89 U/L N 34-104 Alt 10 U/L N 7-52 Ast 12 U/L Low 13-39 Egfr Non- 68.2 >60 Egfr 82.5 >60 3 Inr/Protime 07/16/2018 [facility] Inr 0.98 N 0.77-1.[address] [place] [address] [phone] Laboratory test 07/08/2018 [facility] Hemoglobin A1c 6.7 5-7 finding Ua Routine 12/28/2017 [facility] Ua Specific 1.105 [place] Ua PH 5 Ua Color dark yellow Ua Appera cloudy Ua WBC large Ua Protein 100 Ua Glucose 250 Ua Ketones neg Ua Bilirubin neg Ua Urobilinogen neg Ua Nitrite neg Ua Occult Blood large Urine Culture And 12/28/2017 [facility] Urine SEE RESULT 4 , [address] Culture BELOW [place], [place] [id number] [phone] Laboratory test 12/01/2017 [facility] Surgical SEE RESULT 6 , [address] [place] [address] [phone] Urine Culture And 11/21/2017 [facility] Urine SEE RESULT 8 , [address] Culture BELOW [place], [place] [id number] [phone] Poc Urinalysis 11/21/2017 [facility] Poc Glucose, Negative Negative [address] Urine [place], [place] [id number] [phone] Poc Bilirubin, Urine 1+ Abnormal Negative Poc Ketone, Urine Trace Abnormal Negative Poc Specific [place], Urine 1.020 N 1.010-1.030 Poc Blood, Urine 3+ Abnormal Negative Poc pH, Urine 7.0 N 5-9 Poc Protein, Urine 3+ Abnormal Negative Poc Urobilinogen, Urine 0.2 Negative Poc Nitrite, Urine Negative Negative Poc Leukocytes, Urine 3+ Abnormal Negative Poc Color, Urine Dark yellow Poc Clarity, Urine Turbid 10 Laboratory test 11/21/2017 [facility] Point of Care 241 mg/dL High 70-100 [address] [place] [address] [phone] Laboratory test 11/18/2017 [facility] Hemoglobin A1c 7.6 % High 4.0-5.6 [address] (Glyco HGB) [place] [address] [phone] PSA Diagnostic 0.357 ng/mL N 0-4.000 13 Basic Metabolic Panel 11/18/2017 [facility] Sodium 138 mmol/L N 135-[address] [place] [address] [phone] Potassium 4.5 mmol/L N 3.5-5.0 Chloride 103 mmol/L N 101-111 Co2 Carbon Dioxide 27 mmol/L N 22-32 Anion Gap 8 mmol/L N 2-11 Glucose 176 mg/dL High 70-100 Blood Urea Nitrogen 20 mg/dL N 6-24 Creatinine 1.10 mg/dL N 0.67-1.17 BUN/Creatinine Ratio 18.2 N 8-20 Calcium 9.1 mg/dL N 8.6-10.3 Egfr Non- 64.1 >60 Egfr 77.5 >60 14 Lipid Profile 09/30/2017 [facility] Triglycerides 161 mg/dL 15, 16 (Trig/Chol/HDL) [address] [place] [address] [phone] Cholesterol 155 mg/dL 17 HDL Cholesterol 29.5 mg/dL 18 LDL Cholesterol 93 mg/dL 19 Laboratory test 09/08/2017 [facility] Hemoglobin A1c 7.5 High 5-7 finding Laboratory test 09/01/2017 [facility] Magnesium 1.6 mg/dL Low 1.9-2.[address] [place] [address] [phone] Lactic Acid 1.6 mmol/L N 0.5-2.0 20 Laboratory test 09/01/2017 [facility] Point of 245 mg/dL High 70-100 [address] [place] [address] [phone] CBC Auto Diff 09/01/2017 [facility] White Blood 11.2 High 3.5- 10.[address] Count 10^3/uL [place], [place] [id number] [phone] Red Blood Count 4.55 10^6/uL N 4.0-5.4 Hemoglobin 14.1 g/dL N 14.0-18.0 Hematocrit 41 % Low 42-52 Mean Corpuscular Volume 91 fL N 80-94 Mean Corpuscular Hemoglobin 31 pg N 27-31 Mean Corpuscular HGB Conc 34 g/dL N 31-36 Red Cell Distribution Width 13 % N 10.5-15 Platelet Count 201 10^3/uL N 150-450 Mean Platelet Volume 8.0 um3 N 7.4-10.4 Abs Neutrophils 9.9 10^3/uL High 1.5-7.7 Abs Lymphocytes 0.8 10^3/uL Low 1.0-4.8 Abs Monocytes 0.4 10^3/uL N 0-0.8 Abs Eosinophils 0.1 10^3/uL N 0-0.6 Abs Basophils 0 10^3/uL N 0-0.2 Abs Nucleated RBC 0 10^3/uL Granulocyte % 88.6 % High 38-83 Lymphocyte % 7.0 % Low 25-47 Monocyte % 3.5 % N 0-7 Eosinophil % 0.5 % N 0-6 Basophil % 0.4 % N 0-2 Nucleated Red Blood Cells % 0 Inr/Protime 09/01/2017 [facility] Inr 0.93 N 0.77-1.[address] [place], [place] [id number] [phone] Laboratory test 09/01/2017 [facility] Partial 26.8 N 26.0- 36.[address] [place] [address] PTT [phone] Comp Metabolic 09/01/2017 [facility] Sodium 133 mmol/L Low 139 -[address] [place] [address] [phone] Potassium 5.0 mmol/L N 3.5-5.0 Chloride 100 mmol/L Low 101-111 Co2 Carbon Dioxide 25 mmol/L N 22-32 Anion Gap 8 mmol/L N 2-11 Glucose 265 mg/dL High 70-100 Blood Urea Nitrogen 22 mg/dL N 6-24 Creatinine 1.08 mg/dL N 0.67-1.17 BUN/Creatinine Ratio 20.4 High 8-20 Calcium 8.8 mg/dL N 8.6-10.3 Total Protein 6.6 g/dL N 6.4-8.9 Albumin 3.7 g/dL N 3.2-5.2 Globulin 2.9 g/dL N 2-4 Albumin/Globulin Ratio 1.3 N 1-3 Total Bilirubin 0.70 mg/dL N 0.2-1.0 Alkaline Phosphatase 87 U/L N 34-104 Alt 15 U/L N 7-52 Ast 17 U/L N 13-39 Egfr Non- 65.5 >60 Egfr 84.2 >60 22 Lipid Profile 09/01/2017 [facility] Triglycerides 122 mg/dL 23 (Trig/Chol/HDL) [address] [place], [place] [id number] [phone] Cholesterol 159 mg/dL 24 HDL Cholesterol 32.6 mg/dL 25 LDL Cholesterol 102 mg/dL 26 Laboratory test 09/01/2017 [facility] Troponin-I 0.03 ng/mL < 0.[address] (TnI) [place] [address] [phone] Laboratory test 09/01/2017 [facility] C Reactive 10.06 mg/L High < 5.00 [address] Protein [place], [place] [phone] Type & Screen 09/01/2017 [facility] Patient Blood O Positive [address] Type [place], [place] [phone] Antibody Screen NEGATIVE Urine Culture 08/28/2017 [facility] Urine SEE 28, And [address] Culture RESULT 29 [place] [address] BELOW [phone] Poc Urinalysis 08/28/2017 [facility] Poc Trace Abnormal Negative [address] Glucose, [place] [address] Urine [phone] Poc Bilirubin, Urine Negative Negative Poc Ketone, Urine Negative Negative Poc Specific [place], Urine 1.020 N 1.010-1.030 Poc Blood, Urine 3+ Abnormal Negative Poc pH, Urine 5.0 N 5-9 Poc Protein, Urine 2+ Abnormal Negative Poc Urobilinogen, Urine 0.2 Negative Poc Nitrite, Urine Positive Abnormal Negative Poc Leukocytes, Urine 1+ Abnormal Negative Poc Color, Urine Yellow Poc Clarity, Urine Cloudy 30 Urine Microalbumin 07/10/2017 [facility] Ur Microalbumin 87.6 mg /L Random [address] (mg/L) [place] [address] [phone] Urine Creatinine 115.44 mg/dL Urine Microalbumin/Creatinine 75.8 ug/mg High <31 Comp Metabolic Panel 07/09/2017 [facility] Sodium 139 mmol/L N 139-[address] [place] [address] [phone] Potassium 4.6 mmol/L N 3.5-5.0 Chloride 103 mmol/L N 101-111 Co2 Carbon Dioxide 28 mmol/L N 22-32 Anion Gap 8 mmol/L N 2-11 Glucose 201 mg/dL High 70-100 Blood Urea Nitrogen 13 mg/dL N 6-24 Creatinine 1.08 mg/dL N 0.67-1.17 BUN/Creatinine Ratio 12.0 N 8-20 Calcium 8.9 mg/dL N 8.6-10.3 Total Protein 6.1 g/dL Low 6.4-8.9 Albumin 3.6 g/dL N 3.2-5.2 Globulin 2.5 g/dL N 2-4 Albumin/Globulin Ratio 1.4 N 1-3 Total Bilirubin 0.50 mg/dL N 0.2-1.0 Alkaline Phosphatase 87 U/L N 34-104 Alt 12 U/L N 7-52 Ast 12 U/L Low 13-39 Egfr Non- 65.5 >60 Egfr 84.2 >60 31 Lipid Profile 07/09/2017 [facility] Triglycerides 172 mg/dL 32 (Trig/Chol/HDL) [address] [place] [address] [phone] Cholesterol 147 mg/dL 33 HDL Cholesterol 27.6 mg/dL 34 LDL Cholesterol 85 mg/dL 35 Laboratory test 07/09/2017 [facility] Hemoglobin A1c 7.6 % High 4.0-5.[address] (Glyco HGB) [place] [address] [phone] Laboratory test 01/25/2017 [facility] Alt 26 U/L N 7-[address] [place] [address] [phone] Ast (Sgot) 23 U/L N 13-39 38 Lipid Profile 01/25/2017 [facility] Triglycerides 193 mg/dL N 39 (Trig/Chol/HDL) [address] [place] [address] [phone] Cholesterol 158 mg/dL N 40 HDL Cholesterol 33.8 mg/dL N 41 LDL Cholesterol 86 mg/dL N 42 CBC Auto Diff 08/14/2016 [facility] White Blood 8.3 10^3/uL N 3.5-10.[address] [place] [address] [phone] Red Blood Count 4.55 10^6/uL N 4.0-5.4 Hemoglobin 13.7 g/dL Low 14.0-18.0 Hematocrit 41 % Low 42-52 Mean Corpuscular Volume 91 fL N 80-94 Mean Corpuscular Hemoglobin 30 pg N 27-31 Mean Corpuscular HGB Conc 33 g/dL N 31-36 Red Cell Distribution Width 14 % N 10.5-15 Platelet Count 184 10^3/uL N 150-450 Mean Platelet Volume 9 um3 N 7.4-10.4 Abs Neutrophils 5.8 10^3/uL N 1.5-7.7 Abs Lymphocytes 1.4 10^3/uL N 1.0-4.8 Abs Monocytes 0.6 10^3/uL N 0-0.8 Abs Eosinophils 0.4 10^3/uL N 0-0.6 Abs Basophils 0.1 10^3/uL N 0-0.2 Abs Nucleated RBC 0 10^3/uL N Granulocyte % 69.9 % N 38-83 Lymphocyte % 17.2 % Low 25-47 Monocyte % 7.1 % N 1-9 Eosinophil % 5.1 % N 0-6 Basophil % 0.7 % N 0-2 Nucleated Red Blood Cells % 0 N Comp Metabolic Panel 08/14/2016 [facility] Sodium 137 mmol/L N 133-[address] [place] [address] [phone] Potassium 4.6 mmol/L N 3.5-5.0 Chloride 104 mmol/L N 101-111 Co2 Carbon Dioxide 28 mmol/L N 22-32 Anion Gap 5 mmol/L N 2-11 Glucose 168 mg/dL High 70-100 Blood Urea Nitrogen 19 mg/dL N 6-24 Creatinine 0.98 mg/dL N 0.67-1.17 BUN/Creatinine Ratio 19.4 N 8-20 Calcium 9.0 mg/dL N 8.6-10.3 Total Protein 6.0 g/dL Low 6.4-8.9 Albumin 3.7 g/dL N 3.2-5.2 Globulin 2.3 g/dL N 2-4 Albumin/Globulin Ratio 1.6 N 1-3 Total Bilirubin 0.60 mg/dL N 0.2-1.0 Alkaline Phosphatase 92 U/L N 34-104 Alt 18 U/L N 7-52 Ast 17 U/L N 13-39 Egfr Non- 73.4 N >60 Egfr 94.4 N >60 43 Laboratory test 08/14/2016 [facility] Hemoglobin A1c 6.9 % High Less [address] (Glyco HGB) than 6.0 [place] [address] [phone] Lipid Profile 08/14/2016 [facility] Triglycerides 168 N 45 (Trig/Chol/HDL) [address] mg/[place] [address] [phone] Cholesterol 167 mg/dL N 46 HDL Cholesterol 33.3 mg/dL N 47 LDL Cholesterol 100 mg/dL N 48 Laboratory test 02/18/2016 [facility] Hemoglobin A1c 6.3 % High Less [address] (Glyco HGB) than 6.0 [place] [address] [phone] Lipid Profile 08/26/2015 [facility] Triglycerides 178 N 50 (Trig/Chol/HDL) [address] mg/[place] [address] [phone] Cholesterol 134 mg/dL N 51 HDL Cholesterol 29.2 mg/dL N 52 LDL Cholesterol 69 mg/dL N 53 Laboratory test 08/26/2015 [facility] Hemoglobin A1c 6.2 % High Less than [address] (Glyco HGB) 6.0 [place] [address] [phone] Comp Metabolic 08/26/2015 [facility] Sodium 138 N 133-[address] mmol/[place] [address] [phone] Potassium 4.3 mmol/L N 3.5-5.0 Chloride 104 mmol/L N 101-111 Co2 Carbon Dioxide 28 mmol/L N 22-32 Anion Gap 6 mmol/L N 2-11 Glucose 136 mg/dL High 70-100 Blood Urea Nitrogen 16 mg/dL N 6-24 Creatinine 0.99 mg/dL N 0.67-1.17 BUN/Creatinine Ratio 16.2 N 8-20 Calcium 9.0 mg/dL N 8.6-10.3 Total Protein 6.1 g/dL Low 6.4-8.9 Albumin 3.8 g/dL N 3.2-5.2 Globulin 2.3 g/dL N 2-4 Albumin/Globulin Ratio 1.7 N 1-3 Total Bilirubin 0.80 mg/dL N 0.2-1.0 Alkaline Phosphatase 99 U/L N 34-104 Alt 14 U/L N 7-52 Ast 15 U/L N 13-39 Egfr Non- 72.7 N >60 Egfr 93.5 N >60 55 CBC Auto Diff 08/26/2015 [facility] White Blood 8.5 10^3/uL N 3.5-10.[address] [place] [address] [phone] Red Blood Count 4.56 10^6/uL N 4.0-5.4 Hemoglobin 13.9 g/dL Low 14.0-18.0 Hematocrit 42 % N 42-52 Mean Corpuscular Volume 93 fL N 80-94 Mean Corpuscular Hemoglobin 30 pg N 27-31 Mean Corpuscular HGB Conc 33 g/dL N 31-36 Red Cell Distribution Width 14 % N 10.5-15 Platelet Count 195 10^3/uL N 150-450 Mean Platelet Volume 8 um3 N 7.4-10.4 Abs Neutrophils 6.3 10^3/uL N 1.5-7.7 Abs Lymphocytes 1.3 10^3/uL N 1.0-4.8 Abs Monocytes 0.6 10^3/uL N 0-0.8 Abs Eosinophils 0.3 10^3/uL N 0-0.6 Abs Basophils 0 10^3/uL N 0-0.2 Abs Nucleated RBC 0 10^3/uL N Granulocyte % 73.6 % N 38-83 Lymphocyte % 14.8 % Low 25-47 Monocyte % 7.2 % N 1-9 Eosinophil % 3.9 % N 0-6 Basophil % 0.5 % N 0-2 Nucleated Red Blood Cells % 0 N Pre Cath 09/04/2014 [facility] Partial 32.2 seconds N 26.0- 36.[address] [place] [address] PTT [phone] CBC Auto 09/04/2014 [facility] White Blood 8.8 10^3/uL N 4.8- 10.[address] [place] [address] [phone] Red Blood Count 4.23 10^6/uL N 4.0-5.4 Hemoglobin 13.0 g/dL Low 14.0-18.0 Hematocrit 40 % Low 42-52 Mean Corpuscular Volume 94 fL N 80-94 Mean Corpuscular Hemoglobin 31 pg N 27-31 Mean Corpuscular HGB Conc 33 g/dL N 31-36 Red Cell Distribution Width 13 % N 10.5-15 Platelet Count 208 10^3/uL N 150-450 Mean Platelet Volume 9 um3 N 7.4-10.4 Abs Neutrophils 6.2 10^3/uL N 1.5-7.7 Abs Lymphocytes 1.4 10^3/uL N 1.0-4.8 Abs Monocytes 0.8 10^3/uL N 0-0.8 Abs Eosinophils 0.3 10^3/uL N 0-0.6 Abs Basophils 0.1 10^3/uL N 0-0.2 Abs Nucleated RBC 0 10^3/uL N Granulocyte % 70.3 % N 38-83 Lymphocyte % 16.3 % Low 25-47 Monocyte % 8.6 % N 1-9 Eosinophil % 3.4 % N 0-6 Basophil % 1.4 % N 0-2 Nucleated Red Blood Cells % 0 N Basic Metabolic Panel 09/04/2014 [facility] Sodium 138 mmol/L N 133-[address] [place] [address] [phone] Potassium 4.8 mmol/L N 3.5-5.0 Chloride 104 mmol/L N 101-111 Co2 Carbon Dioxide 30 mmol/L N 22-32 Anion Gap 4 mmol/L N 2-11 Glucose 147 mg/dL High 70-100 Blood Urea Nitrogen 20 mg/dL N 6-24 Creatinine 1.15 mg/dL N 0.67-1.17 BUN/Creatinine Ratio 17.4 N 8-20 Calcium 9.1 mg/dL N 8.6-10.3 Egfr Non- 61.3 N >60 Egfr 78.9 N >60 56 Inr/Protime 09/04/2014 [facility] Inr 0.96 N 0.78-1.[address] [place] [address] [phone] Comp Metabolic 08/17/2014 [facility] Sodium 137 mmol/L N 133- [address] [place] [address] [phone] Potassium 4.2 mmol/L N 3.5-5.0 Chloride 102 mmol/L N 101-111 Co2 Carbon Dioxide 30 mmol/L N 22-32 Anion Gap 5 mmol/L N 2-11 Glucose 125 mg/dL High 70-100 Blood Urea Nitrogen 17 mg/dL N 6-24 Creatinine 1.07 mg/dL N 0.67-1.17 BUN/Creatinine Ratio 15.9 N 8-20 Calcium 8.9 mg/dL N 8.6-10.3 Total Protein 6.1 g/dL Low 6.4-8.9 Albumin 3.7 g/dL N 3.2-5.2 Globulin 2.4 g/dL N 2-4 Albumin/Globulin Ratio 1.5 N 1-3 Total Bilirubin 0.70 mg/dL N 0.2-1.0 Alkaline Phosphatase 78 U/L N 34-104 Alt 12 U/L N 7-52 Ast 18 U/L N 13-39 Egfr Non- 66.7 N >60 Egfr 85.7 N >60 58 Lipid Profile 08/17/2014 [facility] Triglycerides 124 mg/dL N 59 (Trig/Chol/HDL) [address] [place] [address] [phone] Cholesterol 147 mg/dL N 60 HDL Cholesterol 29.7 mg/dL N 61 LDL Cholesterol 93 mg/dL N 62 Laboratory test 08/17/2014 [facility] PSA Diagnostic 0.232 N 0 -4.[address] ng/[place] [address] [phone] CBC Auto Diff 08/17/2014 [facility] White Blood 8.0 N 4.8- 10.8 101 Count 10^3/[place] [address] [phone] Red Blood Count 4.28 10^6/uL N 4.0-5.4 Hemoglobin 13.6 g/dL Low 14.0-18.0 Hematocrit 41 % Low 42-52 Mean Corpuscular Volume 95 fL High 80-94 Mean Corpuscular Hemoglobin 32 pg High 27-31 Mean Corpuscular HGB Conc 34 g/dL N 31-36 Red Cell Distribution Width 13 % N 10.5-15 Platelet Count 197 10^3/uL N 150-450 Mean Platelet Volume 9 um3 N 7.4-10.4 Abs Neutrophils 5.2 10^3/uL N 1.5-7.7 Abs Lymphocytes 1.4 10^3/uL N 1.0-4.8 Abs Monocytes 1.1 10^3/uL High 0-0.8 Abs Eosinophils 0.4 10^3/uL N 0-0.6 Abs Basophils 0 10^3/uL N 0-0.2 Abs Nucleated RBC 0 10^3/uL N Granulocyte % 64.1 % N 38-83 Lymphocyte % 16.8 % Low 25-47 Monocyte % 13.9 % High 1-9 Eosinophil % 4.8 % N 0-6 Basophil % 0.4 % N 0-2 Nucleated Red Blood Cells % 0.1 N Laboratory test 08/17/2014 [facility] Hemoglobin A1c 6.2 % High Less than [address] 6[address] [place] [address] [phone] Lipid Profile 03/07/2014 [facility] Triglycerides 127 N 65 (Trig/Chol/HDL) [address] mg/[place] [address] [phone] Cholesterol 130 mg/dL N 66 HDL Cholesterol 29.0 mg/dL N 67 LDL Cholesterol 76 mg/dL N 68 Laboratory test 03/07/2014 [facility] Hemoglobin A1c 6.6 % High Less than [address] 6[address] [place] [address] [phone] Comp Metabolic 03/07/2014 [facility] Sodium 136 N 133-[address] mmol/[place] [address] [phone] Potassium 3.9 mmol/L N 3.5-5.0 70 Chloride 102 mmol/L N 101-111 Co2 Carbon Dioxide 30 mmol/L N 22-32 Anion Gap 4 mmol/L N 2-11 Glucose 147 mg/dL High 70-100 Blood Urea Nitrogen 16 mg/dL N 6-24 Creatinine 1.03 mg/dL N 0.67-1.17 BUN/Creatinine Ratio 15.5 N 8-20 Calcium 8.9 mg/dL N 8.6-10.3 Total Protein 6.3 g/dL Low 6.4-8.9 Albumin 3.7 g/dL N 3.2-5.2 Globulin 2.6 g/dL N 2-4 Albumin/Globulin Ratio 1.4 N 1-3 Total Bilirubin 0.80 mg/dL N 0.2-1.0 Alkaline Phosphatase 82 U/L N 34-104 Alt 19 U/L N 7-52 Ast 17 U/L N 13-39 Egfr Non- 69.8 N >60 Egfr 89.8 N >60 71 Basic Metabolic Panel 09/28/2013 [facility] Sodium 135 mmol/L N 133-[address] [place] [address] [phone] Potassium 4.7 mmol/L N 3.7-5.6 Chloride 102 mmol/L N 101-111 Co2 Carbon Dioxide 29 mmol/L N 22-32 Anion Gap 4 mmol/L N 2-11 Glucose 143 mg/dL High 70-100 Blood Urea Nitrogen 18 mg/dL N 6-24 Creatinine 1.12 mg/dL N 0.67-1.17 BUN/Creatinine Ratio 16.1 N 8-20 Calcium 9.0 mg/dL N 8.6-10.3 Egfr Non- 63.4 N >60 Egfr 81.5 N >60 72 Cath Panel 09/22/2013 [facility] Activated 30.5 seconds N 24.0 -36.[address] [place] [address] Time [phone] CBC Auto 09/22/2013 [facility] White Blood 8.5 10^3/uL N 4.8- 10.[address] [place] [address] [phone] Red Blood Count 4.30 10^6/uL N 4.0-5.4 Hemoglobin 13.6 g/dL Low 14.0-18.0 Hematocrit 40 % Low 42-52 Mean Corpuscular Volume 93 fL N 80-94 Mean Corpuscular Hemoglobin 32 pg High 27-31 Mean Corpuscular HGB Conc 34 g/dL N 31-36 Red Cell Distribution Width 13 % N 10.5-15 Platelet Count 208 10^3/uL N 150-450 Mean Platelet Volume 8 um3 N 7.4-10.4 Abs Neutrophils 5.9 10^3/uL N 1.5-7.7 Abs Lymphocytes 1.6 10^3/uL N 1.0-4.8 Abs Monocytes 0.7 10^3/uL N 0-0.8 Abs Eosinophils 0.3 10^3/uL N 0-0.6 Abs Basophils 0 10^3/uL N 0-0.2 Abs Nucleated RBC 0 10^3/uL N Granulocyte % 69.3 % N 38-83 Lymphocyte % 18.7 % Low 25-47 Monocyte % 8.2 % N 1-9 Eosinophil % 3.3 % N 0-6 Basophil % 0.5 % N 0-2 Nucleated Red Blood Cells % 0 N Basic Metabolic Panel 09/22/2013 [facility] Sodium 138 mmol/L N 133-145 [address] [place] [address] [phone] Potassium 4.0 mmol/L N 3.7-5.6 Chloride 104 mmol/L N 101-111 Co2 Carbon Dioxide 27 mmol/L N 22-32 Anion Gap 7 mmol/L N 2-11 Glucose 107 mg/dL High 70-100 Blood Urea Nitrogen 26 mg/dL High 6-24 Creatinine 1.08 mg/dL N 0.67-1.17 BUN/Creatinine Ratio 24.1 High 8-20 Calcium 9.2 mg/dL N 8.6-10.3 Egfr Non- 66.1 N >60 Egfr 85.0 N >60 73 Inr/Protime 09/22/2013 [facility] Inr 0.92 N 0.85-1.06 [address] [place] [address] [phone] Basic Metabolic 09/09/2013 [facility] Sodium 136 mmol/L N 133- 145 Panel [address] [place] [address] [phone] Potassium 4.3 mmol/L N 3.7-5.6 Chloride 104 mmol/L N 101-111 Co2 Carbon Dioxide 29 mmol/L N 22-32 Anion Gap 3 mmol/L N 2-11 Glucose 145 mg/dL High 70-100 Blood Urea Nitrogen 18 mg/dL N 6-24 Creatinine 1.05 mg/dL N 0.67-1.17 BUN/Creatinine Ratio 17.1 N 8-20 Calcium 8.9 mg/dL N 8.6-10.3 Egfr Non- 68.3 N >60 Egfr 87.9 N >60 74 CBC No Diff 09/06/2013 [facility] White Blood 7.0 10^3/uL N 4.8-10.[address] [place] [address] [phone] Red Blood Count 4.34 10^6/uL N 4.0-5.4 Hemoglobin 13.9 g/dL Low 14.0-18.0 Hematocrit 41 % Low 42-52 Mean Corpuscular Volume 94 fL N 80-94 Mean Corpuscular Hemoglobin 32 pg High 27-31 Mean Corpuscular HGB Conc 34 g/dL N 31-36 Red Cell Distribution Width 13 % N 10.5-15 Platelet Count 177 10^3/uL N 150-450 Mean Platelet Volume 9 um3 N 7.4-10.4 Basic Metabolic Panel 09/06/2013 [facility] Sodium 137 mmol/L N 133-[address] [place] [address] [phone] Potassium 4.6 mmol/L N 3.7-5.6 Chloride 104 mmol/L N 101-111 Co2 Carbon Dioxide 28 mmol/L N 22-32 Anion Gap 5 mmol/L N 2-11 Glucose 153 mg/dL High 70-100 Blood Urea Nitrogen 23 mg/dL N 6-24 Creatinine 1.13 mg/dL N 0.67-1.17 BUN/Creatinine Ratio 20.4 High 8-20 Calcium 8.9 mg/dL N 8.6-10.3 Egfr Non- 62.8 N >60 Egfr 80.7 N >60 75 Inr/Protime 09/06/2013 [facility] Inr 0.91 N 0.85-1.[address] [place] [address] [phone] Laboratory test 09/06/2013 [facility] Activated 30.4 N 24.0- 36.[address] [place] [address] Time [phone] Lipid Profile 08/24/2013 [facility] Triglycerides 128 mg/dL N 76 (Trig/Chol/HDL) [address] [place] [address] [phone] Cholesterol 130 mg/dL N 77 HDL Cholesterol 28.4 mg/dL N 78 LDL Cholesterol 76 mg/dL N 79 Order 08/15/2013 [employer] In-House Stress Test, <pending> Exercise Nuclear Comp Metabolic 03/06/2013 [facility] Sodium 138 mmol/L 133- [address] [place] [address] [phone] Potassium 4.3 mmol/L 3.5-5.0 Chloride 104 mmol/L 101-111 Co2 Carbon Dioxide 31.0 mmol/L 22-32 Anion Gap 3.0 mmol/L 2-11 Glucose 131 mg/dL High 70-100 Blood Urea Nitrogen 18 mg/dL 6-24 Creatinine 1.00 mg/dL 0.50-1.40 BUN/Creatinine Ratio 18.0 8-20 Calcium 9.0 mg/dL 8.1-9.9 Total Protein 5.6 g/dL Low 6.2-8.1 Albumin 3.7 g/dL 3.2-5.2 Globulin 1.9 g/dL Low 2-4 Albumin/Globulin Ratio 1.9 1-3 Total Bilirubin 1.0 mg/dL 0.4-1.5 Alkaline Phosphatase 71 U/L 30-110 Alt 20 U/L 14-54 Ast 21 U/L 12-42 Egfr Non- 72.5 >60 Egfr 93.2 >60 80 Laboratory test 03/06/2013 [facility] Hemoglobin A1c 5.7 % Less than [address] 6[address] [place] [address] [phone] Lipid Profile 12/13/2012 [facility] Triglycerides 141 mg/dL 40-200 (Trig/Chol/HDL) [address] [place] [address] [phone] Cholesterol 140 mg/dL Less than 200 HDL Cholesterol 30 mg/dL Low 40-60 82 Cholesterol/HDL Ratio 4.7 Average High 1-4.44 LDL Cholesterol 81.8 Less Than 100 83 Laboratory test 12/13/2012 [facility] Ast 20 U/L 12-42 84 finding [address] [place] [address] [phone] Basic Metabolic Panel 08/08/2012 [facility] Sodium 138 mmol/L 133-145 [address] [place] [address] [phone] Potassium 4.2 mmol/L 3.5-5.0 Chloride 105 mmol/L 101-111 Co2 Carbon Dioxide 28.0 mmol/L 22-32 Anion Gap 5.0 mmol/L 2-11 Glucose 115 mg/dL High 70-100 Blood Urea Nitrogen 14 mg/dL 6-24 Creatinine 1.00 mg/dL 0.50-1.40 BUN/Creatinine Ratio 14.0 8-20 Calcium 9.0 mg/dL 8.1-9.9 Egfr Non- 72.5 >60 Egfr 93.2 >60 85 CBC No Diff 08/01/2012 [facility] White Blood 7.9 10^3/uL 4.8 -10.8 101 [facility] [place] [address] [phone] Red Blood Count 4.28 10^6/uL 4.0-5.4 Hemoglobin 13.5 g/dL Low 14.0-18.0 Hematocrit 40 % Low 42-52 Mean Corpuscular Volume 92 fL 80-94 Mean Corpuscular Hemoglobin 32 pg High 27-31 Mean Corpuscular HGB Conc 34 g/dL 31-36 Red Cell Distribution Width 13 % 10.5-15 Platelet Count 200 10^3/uL 150-450 Mean Platelet Volume 8 um3 7.4-10.4 Basic Metabolic Panel 08/01/2012 [facility] Sodium 137 mmol/L 133-145 [address] [place] [address] [phone] Potassium 4.1 mmol/L 3.5-5.0 Chloride 106 mmol/L 101-111 Co2 Carbon Dioxide 25.0 mmol/L 22-32 Anion Gap 6.0 mmol/L 2-11 Glucose 103 mg/dL High 70-100 Blood Urea Nitrogen 24 mg/dL 6-24 Creatinine 1.30 mg/dL 0.50-1.40 BUN/Creatinine Ratio 18.5 8-20 Calcium 9.0 mg/dL 8.1-9.9 Egfr Non- 53.5 >60 Egfr 68.8 >60 86 Laboratory test finding 08/01/2012 [facility] Inr 0.90 0.87- 0.[address] [place] [address] [phone] Activated Partial Thrombo Time 30.6 seconds 22.18-37.18 1 SEE RESULT BELOW Name: DENNYS PRADO : [address]: Juanpablo Norwood MD Acct: [id number] Unit: [id number] AGE: 83 Location: ED Re07/16/18 SEX: M Status: REG ER SPEC: [id number] MARYLU: 07/16/18-164 [facility] DR: Mauro FINN REQ: [id number] RECD: 07/16/18 STATUS: KEVAN LOERA DR: Juanpablo Wallace MD _ SOURCE: STOOL SPDESC: ORDERED: Occult Bl, Scn Procedure Result Reported Site Stool Occult Blood (1) Final 07/16/18- 1718 ML Stool Occult Blood Negative * ML - Main Lab . END OF REPORT DEPARTMENT OF PATHOLOGY, [address] [place] [address] Aubrey Lee M.D. Director [facility] # [id number] 2 SEE RESULT BELOW Name: DENNYS PRADO : [address]: Juanpablo Norwood MD Acct: [id number] Unit: [id number] AGE: 83 Location: ED Re07/16/18 SEX: M Status: REG ER SPEC: [id number] MARYLU: 07/16/[address]: Mauro FINN REQ: [id number] RECD: 07/16/18 STATUS: KEVAN LOERA DR: Juanpablo Wallace MD _ SOURCE: STOOL SPDESC: ORDERED: Occult Bl, Scn Procedure Result Reported Site Stool Occult Blood (1) Final 07/16/18- 190 ML Stool Occult Blood Positive * ML - Main Lab . END OF REPORT DEPARTMENT OF PATHOLOGY, [address] [place] [address] Aubrey Lee M.D. Director [facility] # [id number] 3 Because ethnic data is not always readily available, this report includes an eGFR for both -Americans and non- Americans. The National Kidney Disease Education Program (NKDEP) does not endorse the use of the MDRD equation for patients that are not between the ages of 18 and 70, are , have extremes of body size, muscle mass, or nutritional status, or are non- or non-. According to the National Kidney Foundation, irrespective of diagnosis, the stage of the disease is based on the level of kidney function: Stage Description GFR(mL/min/1.73 m(2)) 1 Kidney damage with normal or decreased GFR 90 2 Kidney damage with mild decrease in GFR 60-89 3 Moderate decrease in GFR 30-59 4 Severe decrease in GFR 15-29 5 Kidney failure <15 (or dialysis) 4 [id number] 5 SEE RESULT BELOW Name: DENNYS PRADO : [address]: Bimal Torre MD Acct: [id number] Unit: [id number] AGE: 82 Location: [facility] Re12/28/17 SEX: M Status: REG REF SPEC: [id number] MARYLU: 12/28/17-0 [facility] DR: Bimal Torre MD REQ: [id number] RECD: 12/28/177573 STATUS: COMP _ SOURCE: URINE SPDESC: ORDERED: Urine Culture COMMENTS: [id number] Urine Source: Random Procedure Result Reported Site Urine Culture Final 12/31/17- 0850 ML Organism 1 KLEBSIELLA PNEUMONIAE [place] Count >100,000 (Many) CFU/ML Organism 2 ENTEROCOCCUS FAECALIS [place] Count 25-50,000 (Moderate) CFU/ML 1. KLEBSIELLA PNEUMONIAE [facility].I.[facility]. RX --------- ------ Ampicillin R Cefazolin <=4 S Cefepime <=1 S Ceftriaxone <=1 S Ciprofloxacin <=0.25 S Gentamicin <=1 S Levofloxacin <=0.12 S Meropenem <=0.25 S Nitrofurantoin 64 I Tetracycline <=1 S Pipercillin/Tazobactam <=4 S Trimethoprim/Sulfamethoxazole <=20 S Amoxicillin/Clavulanic Acid 4 S Aztreonam <=1 S CONTINUED ON NEXT PAGE DEPARTMENT OF PATHOLOGY, [address] [place] [address] Aubrey Lee M.D. Director [facility] # [id number] Patient: DENNYS PRADO [id number] (Continued) Specimen: [id number] Collected: 12/28/17 Received: 12/28/17 (Continued) Procedure Result Reported Site Urine Culture Final (continued) 12/31/17- 50 2. ENTEROCOCCUS FAECALIS M.I.C. RX --------- ------ Ampicillin <=2 S Penicillin 4 S Ciprofloxacin <=0.5 S Gentamicin High Level S Levofloxacin 1 S Linezolid 2 S Nitrofurantoin <=16 S * Quinupristin/Dalfopristin 4 R * Streptomycin High Level S Tetracycline >=16 R Tigecycline <=0.12 S Vancomycin 1 S Imipenem-Deduced S * Ampicillin/Sulbactam-Deduced S * These antibiotics are not available in the [facility] Formulary Contact the Microbiology Department for any additional antibiotic reporting. Contact the Microbiology Department for any additional antibiotic reporting. * - [facility] . END OF REPORT DEPARTMENT OF PATHOLOGY, [address] [place] [address] Aubrey Lee M.D. Director [facility] # [id number] 1522-A:Morphology: pink papule with small telangiectasias. ;DDX: Basal Cell Carcinoma;Location: r 7 SEE RESULT BELOW Name: DENNYS PRADO : [address]: Jennifer Marte MD Acct: [id number] Unit: [id number] AGE: 82 Location: [facility] Re12/01/17 SEX: M Status: REG REF SPEC: [id number] MARYLU: 12/01/17-801 [facility] DR: Jennifer Marte MD REQ: [id number] RECD: 12/01/172316 STATUS: OJ LOERA DR: Edwin Márquez MD _ ORDERED: LEVEL 4 COMMENTS: [id number] FINAL DIAGNOSIS Skin, right ala, biopsy: -- Basal cell carcinoma, superficial and nodular type. PRE-OPERATIVE DIAGNOSIS [place] papule with small telangiectasia, basal cell carcinoma GROSS DESCRIPTION The specimen is received in formalin labeled, Right Ala, and consists of a 0.4 by up to 0.4 cm balderas-white irregular skin shave which is inked, bisected and submitted entirely in one cassette. Signed by and Reported on: Lauryn Robles MD 12/02/17 0839 END OF REPORT DEPARTMENT OF PATHOLOGY, [address] [place] [address] Aubrey Lee M.D. Director [facility] # [id number] SEE RESULT BELOW Name: DENNYS PRADO : [address]: Laurence Ng MD Acct: [id number] Unit: [id number] AGE: 82 Location: [facility] Re11/21/17 SEX: M Status: DEP ER SPEC: [id number] MARYLU: 11/21/17-1046 [facility] DR: Sandee Gee NP REQ: [id number] RECD: 11/21/17 STATUS: KEVAN LOERA DR: [facility] Edwin Márquez MD _ SOURCE: URINE SPDESC: ORDERED: Urine Culture COMMENTS: [id number] Procedure Result Reported Site Urine Culture Final 11/23/17- 1007 ML Organism 1 KLEBSIELLA PNEUMONIAE [place] Count 25-50,000 (Moderate) CFU/ML Organism 2 NORMAL ALVINA [place] Count 10-25,000 (Moderate) CFU/ML 1. KLEBSIELLA PNEUMONIAE M.I.C. RX --------- ------ Ampicillin R Cefazolin <=4 S Cefepime <=1 S Ceftriaxone <=1 S Ciprofloxacin <=0.25 S Gentamicin <=1 S Levofloxacin <=0.12 S Meropenem <=0.25 S Nitrofurantoin 32 S Tetracycline <=1 S Pipercillin/Tazobactam <=4 S Trimethoprim/Sulfamethoxazole <=20 S Amoxicillin/Clavulanic Acid 4 S Aztreonam <=1 S Contact the Microbiology Department for any additional antibiotic reporting. * ML - Main Lab . END OF REPORT DEPARTMENT OF PATHOLOGY, [address] [place] [address] Aubrey Lee M.D. Director [facility] # [id number] 10 Elderly Companion: [id number] 11 Elderly Companion: [id number] 12 Therapeutic target for the treatment of diabetes mellitus patients is <7% HBA1C, and in selective patients <6.0%. Please refer to [place] Diabetes Association diabetic care guidelines for further information. 13 Serum levels of PSA measured using the [email or web address] DXI Hybritech immunoassay should not be interpreted as absolute evidence of the presence or absence of disease. The PSA value should be used in conjunction with other pertinent clinical diagnostic procedures. A PSA value in the range of 0.1 to 0.6 ng/ml is indeterminate if being used as an indicator of recurrent or residual disease. The values obtained with different assay methods or kits cannot be used interchangeably. 14 Because ethnic data is not always readily available, this report includes an eGFR for both -Americans and non- Americans. The National Kidney Disease Education Program (NKDEP) does not endorse the use of the MDRD equation for patients that are not between the ages of 18 and 70, are , have extremes of body size, muscle mass, or nutritional status, or are non- or non-. According to the National Kidney Foundation, irrespective of diagnosis, the stage of the disease is based on the level of kidney function: Stage Description GFR(mL/min/1.73 m(2)) 1 Kidney damage with normal or decreased GFR 90 2 Kidney damage with mild decrease in GFR 60-89 3 Moderate decrease in GFR 30-59 4 Severe decrease in GFR 15-29 5 Kidney failure <15 (or dialysis) 15 FASTING 10 HOUR 16 Desirable: <150 Borderline High: 150-199 High: 200-499 Very High: >500 17 Desirable: <200 Borderline High: 200-239 High: >239 18 Low: <40 Desirable: 40-60 High: >60 19 Desirable: <100 Near Optimal: 100-129 Borderline High: 130-159 High: 160-189 Very High: >189 20 [facility] Severe Sepsis and Septic Shock Management Bundle Measure requires all lactic acids initially measuring >2.0 mmol/L be repeated. 21 Elderly Companion: [id number] 22 Because ethnic data is not always readily available, this report includes an eGFR for both -Americans and non- Americans. The National Kidney Disease Education Program (NKDEP) does not endorse the use of the MDRD equation for patients that are not between the ages of 18 and 70, are , have extremes of body size, muscle mass, or nutritional status, or are non- or non-. According to the National Kidney Foundation, irrespective of diagnosis, the stage of the disease is based on the level of kidney function: Stage Description GFR(mL/min/1.73 m(2)) 1 Kidney damage with normal or decreased GFR 90 2 Kidney damage with mild decrease in GFR 60-89 3 Moderate decrease in GFR 30-59 4 Severe decrease in GFR 15-29 5 Kidney failure <15 (or dialysis) 23 Desirable: <150 Borderline High: 150-199 High: 200-499 Very High: >500 24 Desirable: <200 Borderline High: 200-239 High: >239 25 Low: <40 Desirable: 40-60 High: >60 26 Desirable: <100 Near Optimal: 100-129 Borderline High: 130-159 High: 160-189 Very High: >189 27 Acute inflammation: >10.00 28 [id number] SEE RESULT BELOW Name: JOSEATIYADENNYS : [address]: Edward Zeng MD Acct: [id number] Unit: [id number] AGE: 82 Location: [facility] Re08/28/17 SEX: M Status: DEP ER SPEC: [id number] MARYLU: 08/28/17-1716 [facility] DR: Yuko Ceron NP REQ: [id number] RECD: 08/29/17 STATUS: KEVAN LOERA DR: Edward Márquez MD _ SOURCE: URINE [facility]: ORDERED: Urine Culture COMMENTS: [id number] Procedure Result Reported Site Urine Culture Final 08/31/17- 0751 ML Organism 1 ESCHERICHIA COLI [place] Count >100,000 (Many) CFU/ML 1. ESCHERICHIA COLI M.I.C. RX --------- ------ Ampicillin >=32 R Cefazolin <=4 S Cefepime <=1 S Ceftriaxone <=1 S Ciprofloxacin <=0.25 S Gentamicin <=1 S Levofloxacin <=0.12 S Meropenem <=0.25 S Nitrofurantoin <=16 S Tetracycline 2 S Pipercillin/Tazobactam 8 S Trimethoprim/Sulfamethoxazole <=20 S Amoxicillin/Clavulanic Acid 16 I Aztreonam <=1 S Contact the Microbiology Department for any additional antibiotic reporting. * ML - Main Lab . END OF REPORT DEPARTMENT OF PATHOLOGY, [address] [place] [address] Aubrey Lee M.D. Director [facility] # [id number] 30 Elderly Companion: [id number] 31 Because ethnic data is not always readily available, this report includes an eGFR for both -Americans and non- Americans. The National Kidney Disease Education Program (NKDEP) does not endorse the use of the MDRD equation for patients that are not between the ages of 18 and 70, are , have extremes of body size, muscle mass, or nutritional status, or are non- or non-. According to the National Kidney Foundation, irrespective of diagnosis, the stage of the disease is based on the level of kidney function: Stage Description GFR(mL/min/1.73 m(2)) 1 Kidney damage with normal or decreased GFR 90 2 Kidney damage with mild decrease in GFR 60-89 3 Moderate decrease in GFR 30-59 4 Severe decrease in GFR 15-29 5 Kidney failure <15 (or dialysis) 32 Desirable: <150 Borderline High: 150-199 High: 200-499 Very High: >500 33 Desirable: <200 Borderline High: 200-239 High: >239 34 Low: <40 Desirable: 40-60 High: >60 35 Desirable: <100 Near Optimal: 100-129 Borderline High: 130-159 High: 160-189 Very High: >189 36 Therapeutic target for the treatment of diabetes mellitus patients is <7% HBA1C, and in selective patients <6.0%. Please refer to [place] Diabetes Association diabetic care guidelines for further information. [address] Márquez [address] Márquez 39 Desirable: <150 Borderline High: 150-199 High: 200-499 Very High: >500 40 Desirable: <200 Borderline High: 200-239 High: >239 41 Low: <40 Desirable: 40-60 High: >60 42 Desirable: <100 Near Optimal: 100-129 Borderline High: 130-159 High: 160-189 Very High: >189 43 Because ethnic data is not always readily available, this report includes an eGFR for both -Americans and non- Americans. The National Kidney Disease Education Program (NKDEP) does not endorse the use of the MDRD equation for patients that are not between the ages of 18 and 70, are , have extremes of body size, muscle mass, or nutritional status, or are non- or non-. According to the National Kidney Foundation, irrespective of diagnosis, the stage of the disease is based on the level of kidney function: Stage Description GFR(mL/min/1.73 m(2)) 1 Kidney damage with normal or decreased GFR 90 2 Kidney damage with mild decrease in GFR 60-89 3 Moderate decrease in GFR 30-59 4 Severe decrease in GFR 15-29 5 Kidney failure <15 (or dialysis) 44 Therapeutic target for the treatment of diabetes Mellitus patients is <7% HBA1C, and in selective patients <6.0%.Please refer to [place] Diabetes Association Diabetic care guidelines for further information. 45 Desirable <150 Borderline high 150-199 High 200-499 Very High >500 46 Desirable <200 Borderline high 200-239 High >239 47 Low <40 Desirable: 40-60 High: >60 48 Desirable: <100 mg/dL Near Optimal: 100-129 mg/dL Borderline High: 130-159 mg/dL High: 160-189 mg/dL Very High: >189 mg/dL 49 Therapeutic target for the treatment of diabetes Mellitus patients is <7% HBA1C, and in selective patients <6.0%.Please refer to [place] Diabetes Association Diabetic care guidelines for further information. 50 Desirable <150 Borderline high 150-199 High 200-499 Very High >500 51 Desirable <200 Borderline high 200-239 High >239 52 Low <40 Desirable: 40-60 High: >60 53 Desirable: <100 mg/dL Near Optimal: 100-129 mg/dL Borderline High: 130-159 mg/dL High: 160-189 mg/dL Very High: >189 mg/dL 54 Therapeutic target for the treatment of diabetes Mellitus patients is <7% HBA1C, and in selective patients <6.0%.Please refer to [place] Diabetes Association Diabetic care guidelines for further information. 55 Because ethnic data is not always readily available, this report includes an eGFR for both -Americans and non- Americans. The National Kidney Disease Education Program (NKDEP) does not endorse the use of the MDRD equation for patients that are not between the ages of 18 and 70, are , have extremes of body size, muscle mass, or nutritional status, or are non- or non-. According to the National Kidney Foundation, irrespective of diagnosis, the stage of the disease is based on the level of kidney function: Stage Description GFR(mL/min/1.73 m(2)) 1 Kidney damage with normal or decreased GFR 90 2 Kidney damage with mild decrease in GFR 60-89 3 Moderate decrease in GFR 30-59 4 Severe decrease in GFR 15-29 5 Kidney failure <15 (or dialysis) 56 Because ethnic data is not always readily available, this report includes an eGFR for both -Americans and non- Americans. The National Kidney Disease Education Program (NKDEP) does not endorse the use of the MDRD equation for patients that are not between the ages of 18 and 70, are , have extremes of body size, muscle mass, or nutritional status, or are non- or non-. According to the National Kidney Foundation, irrespective of diagnosis, the stage of the disease is based on the level of kidney function: Stage Description GFR(mL/min/1.73 m(2)) 1 Kidney damage with normal or decreased GFR 90 2 Kidney damage with mild decrease in GFR 60-89 3 Moderate decrease in GFR 30-59 4 Severe decrease in GFR 15-29 5 Kidney failure <15 (or dialysis) 57 FASTING 58 Because ethnic data is not always readily available, this report includes an eGFR for both -Americans and non- Americans. The National Kidney Disease Education Program (NKDEP) does not endorse the use of the MDRD equation for patients that are not between the ages of 18 and 70, are , have extremes of body size, muscle mass, or nutritional status, or are non- or non-. According to the National Kidney Foundation, irrespective of diagnosis, the stage of the disease is based on the level of kidney function: Stage Description GFR(mL/min/1.73 m(2)) 1 Kidney damage with normal or decreased GFR 90 2 Kidney damage with mild decrease in GFR 60-89 3 Moderate decrease in GFR 30-59 4 Severe decrease in GFR 15-29 5 Kidney failure <15 (or dialysis) 59 Desirable <150 Borderline high 150-199 High 200-499 Very High >500 60 Desirable <200 Borderline high 200-239 High >239 61 Low <40 Desirable: 40-60 High: >60 62 Desirable: <100 mg/dL Near Optimal: 100-129 mg/dL Borderline High: 130-159 mg/dL High: 160-189 mg/dL Very High: >189 mg/dL 63 Serum levels of PSA measured using the [employer] D[employer] Hybritech immunoassay should not be interpreted as absolute evidence of the presence or absence of disease. The PSA value should be used in conjunction with other pertinent clinical diagnostic procedures. A PSA value in the range of 0.1 to 0.6 ng/ml is indeterminate if being used as an indicator of recurrent or residual disease. The values obtained with different assay methods or kits cannot be used interchangeably. 64 Therapeutic target for the treatment of diabetes Mellitus patients is <7% HBA1C, and in selective patients <6.0%.Please refer to [place] Diabetes Association Diabetic care guidelines for further information. 65 Desirable <150 Borderline high 150-199 High 200-499 Very High >500 66 Desirable <200 Borderline high 200-239 High >239 67 Low <40 Desirable: 40-60 High: >60 68 Desirable <100 Near Optimal 100-129 Borderline high 130-159 High 160-189 Very High >189 69 Therapeutic target for the treatment of diabetes Mellitus patients is <7% HBA1C, and in selective patients <6.0%.Please refer to [place] Diabetes Association Diabetic care guidelines for further information. 70 Potassium reference range changed effective 02/11/14 71 Because ethnic data is not always readily available, this report includes an eGFR for both -Americans and non- Americans. The National Kidney Disease Education Program (NKDEP) does not endorse the use of the MDRD equation for patients that are not between the ages of 18 and 70, are , have extremes of body size, muscle mass, or nutritional status, or are non- or non-. According to the National Kidney Foundation, irrespective of diagnosis, the stage of the disease is based on the level of kidney function: Stage Description GFR(mL/min/1.73 m(2)) 1 Kidney damage with normal or decreased GFR 90 2 Kidney damage with mild decrease in GFR 60-89 3 Moderate decrease in GFR 30-59 4 Severe decrease in GFR 15-29 5 Kidney failure <15 (or dialysis) 72 Because ethnic data is not always readily available, this report includes an eGFR for both -Americans and non- Americans. The National Kidney Disease Education Program (NKDEP) does not endorse the use of the MDRD equation for patients that are not between the ages of 18 and 70, are , have extremes of body size, muscle mass, or nutritional status, or are non- or non-. According to the National Kidney Foundation, irrespective of diagnosis, the stage of the disease is based on the level of kidney function: Stage Description GFR(mL/min/1.73 m(2)) 1 Kidney damage with normal or decreased GFR 90 2 Kidney damage with mild decrease in GFR 60-89 3 Moderate decrease in GFR 30-59 4 Severe decrease in GFR 15-29 5 Kidney failure <15 (or dialysis) 73 Because ethnic data is not always readily available, this report includes an eGFR for both -Americans and non- Americans. The National Kidney Disease Education Program (NKDEP) does not endorse the use of the MDRD equation for patients that are not between the ages of 18 and 70, are , have extremes of body size, muscle mass, or nutritional status, or are non- or non-. According to the National Kidney Foundation, irrespective of diagnosis, the stage of the disease is based on the level of kidney function: Stage Description GFR(mL/min/1.73 m(2)) 1 Kidney damage with normal or decreased GFR 90 2 Kidney damage with mild decrease in GFR 60-89 3 Moderate decrease in GFR 30-59 4 Severe decrease in GFR 15-29 5 Kidney failure <15 (or dialysis) 74 Because ethnic data is not always readily available, this report includes an eGFR for both -Americans and non- Americans. The National Kidney Disease Education Program (NKDEP) does not endorse the use of the MDRD equation for patients that are not between the ages of 18 and 70, are , have extremes of body size, muscle mass, or nutritional status, or are non- or non-. According to the National Kidney Foundation, irrespective of diagnosis, the stage of the disease is based on the level of kidney function: Stage Description GFR(mL/min/1.73 m(2)) 1 Kidney damage with normal or decreased GFR 90 2 Kidney damage with mild decrease in GFR 60-89 3 Moderate decrease in GFR 30-59 4 Severe decrease in GFR 15-29 5 Kidney failure <15 (or dialysis) 75 Because ethnic data is not always readily available, this report includes an eGFR for both -Americans and non- Americans. The National Kidney Disease Education Program (NKDEP) does not endorse the use of the MDRD equation for patients that are not between the ages of 18 and 70, are , have extremes of body size, muscle mass, or nutritional status, or are non- or non-. According to the National Kidney Foundation, irrespective of diagnosis, the stage of the disease is based on the level of kidney function: Stage Description GFR(mL/min/1.73 m(2)) 1 Kidney damage with normal or decreased GFR 90 2 Kidney damage with mild decrease in GFR 60-89 3 Moderate decrease in GFR 30-59 4 Severe decrease in GFR 15-29 5 Kidney failure <15 (or dialysis) 76 Desirable <150 Borderline high 150-199 High 200-499 Very High >500 77 Desirable <200 Borderline high 200-239 High >239 78 Low <40 Desirable: 40-60 High: >60 79 Desirable <100 Near Optimal 100-129 Borderline high 130-159 High 160-189 Very High >189 80 Because ethnic data is not always readily available, this report includes an eGFR for both -Americans and non- Americans. The National Kidney Disease Education Program (NKDEP) does not endorse the use of the MDRD equation for patients that are not between the ages of 18 and 70, are , have extremes of body size, muscle mass, or nutritional status, or are non- or non-. According to the National Kidney Foundation, irrespective of diagnosis, the stage of the disease is based on the level of kidney function: Stage Description GFR(mL/min/1.73 m(2)) 1 Kidney damage with normal or decreased GFR 90 2 Kidney damage with mild decrease in GFR 60-89 3 Moderate decrease in GFR 30-59 4 Severe decrease in GFR 15-29 5 Kidney failure <15 (or dialysis) 81 Therapeutic target for the treatment of diabetes Mellitus patients is <7% HBA1C, and in selective patients <6.0%.Please refer to [place] Diabetes Association Diabetic care guidelines for further information. 82 HDL Interpretation: Undesirable: High Risk: Less than 40 mg/dL Desirable: Low Risk: Greater than 60 mg/dL 83 LDL Interpretation: Low Risk Optimal Level: LDL Less than 100 mg/dL Near or Above Optimal: LDL 100-129 mg/dL Borderline High Risk: LDL 130-159 mg/dL High Risk: LDL 160-189 mg/dL Very High Risk: LDL Greater than 189 mg/dL 84 PT IS FASTING 85 Because ethnic data is not always readily available, this report includes an eGFR for both -Americans and non- Americans. The National Kidney Disease Education Program (NKDEP) does not endorse the use of the MDRD equation for patients that are not between the ages of 18 and 70, are , have extremes of body size, muscle mass, or nutritional status, or are non- or non-. According to the National Kidney Foundation, irrespective of diagnosis, the stage of the disease is based on the level of kidney function: Stage Description GFR(mL/min/1.73 m(2)) 1 Kidney damage with normal or decreased GFR 90 2 Kidney damage with mild decrease in GFR 60-89 3 Moderate decrease in GFR 30-59 4 Severe decrease in GFR 15-29 5 Kidney failure <15 (or dialysis) 86 Because ethnic data is not always readily available, this report includes an eGFR for both -Americans and non- Americans. The National Kidney Disease Education Program (NKDEP) does not endorse the use of the MDRD equation for patients that are not between the ages of 18 and 70, are , have extremes of body size, muscle mass, or nutritional status, or are non- or non-. According to the National Kidney Foundation, irrespective of diagnosis, the stage of the disease is based on the level of kidney function: Stage Description GFR(mL/min/1.73 m(2)) 1 Kidney damage with normal or decreased GFR 90 2 Kidney damage with mild decrease in GFR 60-89 3 Moderate decrease in GFR 30-59 4 Severe decrease in GFR 15-29 5 Kidney failure <15 (or dialysis) Procedures Date Code Description Status 02/10/2018 42028 EKG Tracing & Interpretation Completed 02/11/2017 513273118 Diabetic Retinal Eye Exam Completed 12/18/2015 39735 EKG Tracing & Interpretation Completed 02/18/2015 07649 Inject/Drain Joint/Bursa Major W/O US Completed 12/11/2014 62911 Holter Monitor Review (24 hr)dr review & interp only Completed 10/17/2014 99671 ECHO Transthorasic Realtime 2D W Doppler & Color Flow Completed Hosp 09/26/2014 20708 EKG Tracing & Interpretation Completed 08/15/2014 38739 EKG Tracing & Interpretation Completed 08/01/2014 19552 ECHO Transthorasic Realtime 2D W Doppler & Color Flow Completed Hosp 03/23/2014 70503 EKG Tracing & Interpretation Completed 10/03/2013 73202 EKG Tracing & Interpretation Completed 09/27/2013 10471 EKG, Interpretation Only Completed 09/26/2013 80294 Percutaneous Transcatheter Placement Of Intracoronary Completed Stent 09/26/2013 49035 Percutaneous Transcatheter Placement Of Intracoronary Completed Stent 09/26/2013 10002 EKG, Interpretation Only Completed 09/26/2013 03265 Percutaneous Transcatheter Placement Of Intracoronary Completed Stent 09/08/2013 04284 RT & lt Cath W/Injx HRT Art&L Ventr Img S&I Completed 09/05/2013 29508 Treadmill Interp/Report Only Completed 09/05/2013 75158 Stress Test Supervsn W/Out I/R Completed 08/30/2013 04042 ECHO Transthorasic Realtime 2D W Doppler & Color Flow Completed Hosp 08/18/2013 46816 EKG Tracing & Interpretation Completed 08/15/2013 13697 Stress Test Completed 08/15/2013 25658 Myocardial Perfusion Imaging Tomographic (Spect) Completed Multiple Studies 02/20/2013 40689 EKG Tracing & Interpretation Completed 10/25/2012 10558 Stress Test Completed 10/25/2012 13456 Myocardial Perfusion Imaging Tomographic (Spect) Completed Multiple Studies 08/12/2012 27768 EKG Tracing & Interpretation Completed 08/05/2012 98274 Left Heart Cath. Incl S/I Coronaries, Angio S/I V Gram Completed If Done 08/05/2012 28425 Percutaneous Transcatheter Placement Of Intracoronary Completed Stent 08/05/2012 33947 Percutaneous Transcatheter Placement Of Intracoronary Completed Stent 07/20/2012 68426 ECHO Transthoracic, Real-Time 2D With Doppler And Completed Color Flow 03/15/2012 46527 Polysomnography Sleep Staging 4+ Parameters Completed 02/07/2002 [id number] Colonoscopy Completed Encounters Type Date Location Provider Dx Diagnosis Office Visit 07/18/2018 [facility] Michael Flynn, K62.5 Hemorrhage of anus 10:17a ny Lozada M.D. 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 infection, site [address] not specified R31.9 Hematuria, unspecified Office Visit 11/26/2017 10:30a [facility] Anna Marie N10 Acute pyelonephritis Medicine Isai, RPA-C Z85.46 Personal history of malignant neoplasm of prostate Office Visit 09/08/2017 8:20a [facility] Renita Randhawa, I10 Essential ( primary) Medicine - [address] E11.21 Type 2 diabetes mellitus with diabetic nephropathy R97.21 Rising PSA fol treatment for malignant neoplasm of prostate E78.5 Hyperlipidemia, unspecified Office Visit 09/02/2017 8:57a [facility] Chiquiblaine Stovall, I16.1 Hypertensive Assoc,pc N.P. emergency Hospitalists G93.41 Metabolic encephalopathy N39.0 Urinary tract infection, site not specified E83.42 Hypomagnesemia Office Visit 09/01/2017 [facility] Jessicablaine Talbot I16.1 Hypertensive 8:55a Assoc,pc Sally, [employer] emergency Hospitalists G93.41 Metabolic encephalopathy N39.0 Urinary tract infection, site not specified E83.42 Hypomagnesemia Office Visit 07/14/2017 9:40a [facility] Edwin Girard E11.21 Type 2 diabetes Sarai Márquez M.D.,FACP mellitus with [address] diabetic nephropathy R97.21 Rising PSA fol treatment for malignant neoplasm of prostate I10 Essential (primary) hypertension Office Visit 02/17/2017 9:10a [facility] Edwin Girard E11.9 Type 2 diabetes Sarai Márquez M.D.,FACP mellitus without [address] complications I10 Essential (primary) hypertension R97.21 Rising PSA fol treatment for malignant neoplasm of prostate I25.10 Athscl heart disease of [place] coronary artery w/o ang pctrs Z23 Encounter for immunization Office Visit 01/25/2017 9:00a [facility] Yogi Pelayo, I10 Essential (primary) [facility], hypertension FSCAI 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 knee Office Visit 12/13/2014 Felicia Pelayo, 424.1 Aortic Valve Disorder 3:40p Cardiology Of Bhargav, FAC, [facility] AT [facility] FSCAI 401.9 Hypertension Unspec 272.4 Hyperlipidemia Other Unspec Office Visit 11/06/2014 2:20p [facility] Yogi Pelayo 424.1 Aortic Valve Of [facility] AT [facility], [facility], Disorder FSCAI 401.9 Hypertension Unspec 414.9 Ischemic Heart Disease Chronic Unspec 272.4 Hyperlipidemia Other Unspec Office Visit 09/26/2014 1:20p [facility] Yogi Pelayo, 424.1 Aortic Valve Of [facility] AT [facility], Disorder FSCAI 401.9 Hypertension Unspec 414.9 Ischemic Heart Disease Chronic Unspec 272.4 Hyperlipidemia Other Unspec Office Visit 08/15/2014 10:00a [facility] Yogi Pelayo 424.1 Aortic Valve Of [facility] AT [facility], Disorder FSCAI 401.9 Hypertension Unspec 272.4 Hyperlipidemia Other Unspec 414.9 Ischemic Heart Disease Chronic Unspec Office Visit 03/23/2014 2:20p [facility] Yogi Pelayo 401.9 Hypertension Of [facility] AT [facility], [facility], Unspec FSCAI 272.4 Hyperlipidemia Other Unspec 424.1 Aortic Valve Disorder 414.9 Ischemic Heart Disease Chronic Unspec Office Visit 10/03/2013 3:15p [facility] Yogi Pelayo 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[facility], [facility], Disease Chronic FSCAI Unspec 424.1 Aortic Valve Disorder 401.9 Hypertension Unspec 272.4 Hyperlipidemia Other Unspec Office Visit 09/27/2013 12:13p [facility] Yogi Pelayo 414.9 Ischemic Heart Of [facility], Disease Chronic FSCAI Unspec Office Visit 09/13/2013 2:30p [facility] Yogi Pelayo 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[facility], Disease Chronic FSCAI Unspec 424.1 Aortic Valve Disorder 401.9 Hypertension Unspec 272.4 Hyperlipidemia Other Unspec Office Visit 08/31/2013 4:00p [facility] Yogi Pelayo, 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[facility], Disease Chronic FSCAI Unspec 424.1 Aortic Valve Disorder 401.9 Hypertension Unspec 272.4 Hyperlipidemia Other Unspec Office Visit 08/18/2013 3:15p [facility] Yogi Pelayo, 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[facility], Disease Chronic FSCAI Unspec 401.9 Hypertension Unspec 272.4 Hyperlipidemia Other Unspec 424.1 Aortic Valve Disorder Office Visit 02/20/2013 9:15a [facility] Yogi Pelayo 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[facility], Disease Chronic FSCAI Unspec 401.9 Hypertension Unspec 272.4 Hyperlipidemia Other Unspec 424.1 Aortic Valve Disorder Office Visit 11/02/2012 3:30p [facility] Yogi Pelayo 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[facility], Disease Chronic FSCAI Unspec Office Visit 09/14/2012 4:00p [facility] Yogi Pelayo 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[facility], Disease Chronic FSCAI Unspec 401.9 Hypertension Unspec 272.4 Hyperlipidemia Other Unspec Office Visit 08/12/2012 3:30p [facility] Yogi Pelayo, 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[facility], Disease Chronic FSCAI Unspec 401.9 Hypertension Unspec 424.1 Aortic Valve Disorder Office Visit 07/15/2012 3:00p [facility] Yogi Pelayo 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[facility], Disease Chronic FSCAI Unspec 424.1 Aortic Valve Disorder Office Visit 03/25/2012 3:34p Litzy Vigil 327.23 Obstructive Sleep Disorder [facility] Office Visit 02/19/2012 10:09a Litzy Vigil 786.09 Dyspnea & Disorder [facility] Abnormalities Other 780.79 Malaise And Fatigue Other Office Visit 01/28/2012 8:15a [facility] Yogi Pelayo 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 at [facility]08/12/2018 9:00 am - Nurse Visit IC at [facility]08/11/2018 9:30 am - Nurse Visit IC at [facility]01/27/2019 10:40 am - Adrienne Wallace MD at [facility] Wbcsqlbe98/25/2019 9: 20 am - Adrienne Wallace MD at [facility] Hxdyneaf30/25/2019 - Dipti Jefferson, N.P.I10 Essential (primary) zfrjywghhyabM76.0 Paroxysmal atrial fibrillationNew Orders:Holter Monitor, Scheduled: 08/11/18Follow up:2m OV QSMRecommendations: Stroke risk 6.8% annual Bleed risk 4.8% annual I will discuss with Dr. 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
--- OUTSIDE RECORDS SUMMARY | 2018-08-12 18:45 | XMS REPORT | Continuity of Care Document ---
:1935 External Reference #:[id number] Author Name Tereza Isaac Care Team Providers Name Role Phone Edwin Márquez MD Primary Care Physician Unavailable Payers Date Identification Numbers Payment Provider Subscriber Effective: 2000 Policy Number: [id number] Medicare Dennys rPado PayID: [id number] [address] [place] [address] Policy Number: [id number] [facility] Dennys Prado PayID: [id number] [address] [address] [place] [address] Advance Directives Type Date Description Status Comment Other Directive 12/03/2010 Health Care Proxy Current and Verified Problems Active Problems Provider Date Chronic ischemic heart disease Yogi Pelayo M.D., [facility], [facility] Onset: 2013 Essential hypertension Yogi Pelayo M.D., [facility], [facility] 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/2013 Hyperlipidemia Yogi Pelayo M.D., [facility], [facility] 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/2013 Aortic valve disorder Yogi Pelayo M.D., [facility], [facility] 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/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 Localized, primary osteoarthritis Cain Watson MD Onset: 02/18/2015 Heart valve replacement Yogi Pelayo M.D., [facility], [facility] Onset: 12/18/2015 Coronary arteriosclerosis Yogi Pelayo M.D., [facility], [facility] Onset: 01/25/2017 Note: stented x8 Type 2 diabetes mellitus Edwin Márquez M.D.,[facility] Onset: 02/17/2017 Hemorrhagic cystitis Edwin Márquez M.D.,FACP [...] Start: Unknown End: Former Cigarette Smoker Unknown ETOH Use 02/17/2017 Denies alcohol use Tobacco Use Start: Unknown End: Patient is a former smoker quit 1968 Unknown Recreational Drug Use Denies Drug Use Smoking Status Reviewed: 07/08/18 Patient is a former smoker quit 1968 Exercise Type/Frequency Exercises sporadically walking Allergies, Adverse [...] 40mg Tablets night at bedtime Bhargav Esteban Metoprolol Succinate 1/2 by mouth twice 90tabs I10 Mikhail SAlex 11/02/2012 ER a day DO Maykel FACC 100mg Tablets ER 24HR Xarelto 1 by mouth every 90tabs Edwin Girard 15mg Tablets day Bhargav Márquez,FACP Glipizide ER 1 by mouth daily 90tabs E11.21 Manda 10mg Bhargav Esteban Tablets ER 24HR Amoxicillin 1 capsule once 2 Unknown 500mg hours prior to Tablets dental appt's Coenzyme Q-10 1 by mouth every Unknown 100mg day Capsules Cranberry Juice Unknown Extract 4200mg Capsules Vitamin B-12 1 by mouth every Unknown 500mcg day Tablets Vitamin D3 daily Unknown 1000Units Multivitamins 1/2 tab by mouth Unknown every day Capsules Cinnamon Plus 1 tab every other Unknown Chromium day [id number] Capsules Aspirin 1 po qod Unknown 81mg Tablets Elmiron take one capsule by 90capphil Glover 100mg mouth 1x a day Bhargav Infante Capsules History Medications Nitrofurantoin 1 po qhs 30caps Edwin Girard 01/19/2018 - Macrocrystal Bhargav Márquez,FACP 07/08/2018 50mg Capsules Cipro 1 by mouth [...] once Edwin Girard 02/17/2017 - daily Bhargav Márquez,[facility] 02/17/2017 500mg Tablets ER 24HR Clopidogrel Bisulfate 1 by mouth every 90tabs Manda 08/22/2013 - day Bhargav Esteban 07/08/2018 75mg Tablets Nitrostat 1 tab sublingual 25tabs Yogi Pelayo, 08/18/2013 - 0.4mg Tablets as needed every 5 M.D., [facility], 07/08/2018 Sub mins x 3 [facility] Losartan 1 po qd 90tabs Yogi Pelayo, 02/20/2013 - Potassium/Hydrochlorot MDeborah, [facility], 08/14/2013 hiazide [facility] 100-12.5mg Tablets Clopidogrel 1 po qd 30tabs Yogi Pelayo, 02/20/2013 - 75mg Tablets M.D., [facility], 08/22/2013 [facility] Metoprolol Succinate 1 po in am 1/2 in 150tabs Yogi Pelayo, 10/25/2012 - ER pm M.D., [facility], 11/02/2012 100mg Tablets ER 24HR [facility] Isosorbide Mononitrate 1 po qd 90tabs Yogi Pelayo, 10/25/2012 - ER M.D., [facility], 08/14/2013 60mg Tablets ER 24HR [facility] Metoprolol Succinate 1 po qd 30tabs Yogi Pelayo, 09/14/2012 - ER M.D., [facility], 10/25/2012 100mg Tablets ER 24HR [facility] Metoprolol Succinate 1 and 1/2 tab by 45tabs Yogi Pelayo, 08/12/2012 - ER mouth once a day M.DAlex, [facility], 09/14/2012 50mg Tablets ER 24HR [facility] Clobetasol Propionate Jennifer Marte, - MD 07/08/2018 0.05% Solution Fluorouracil Jennifer Marte, - 5% Cream 07/08/2018 Sulfamethoxazole/Trime Unknown - thoprim DS 01/19/2018 800-160mg Tablets Phenazopyridine HCL Unknown - 100mg 01/19/2018 Tablets Losartan Potassium 2 tabs by mouth 30tabs Edwin Girard - 25mg every day Bhargav Márquez,[facility] 09/02/2017 Tablets Metformin HCL ER 1 by mouth in the 90tabs Edwin Girard - 500mg in the morning [facility]argav M[facility]quez,[facility] 09/08/2017 Tablets ER 24HR and two in the evening Amiodarone HCL 2 by mouth every Unknown - 200mg day for 14 days 11/05/2014 Tablets then 1 tab daily for 14 days then stop Bumetanide 1 tab by mouth Unknown - 0.5mg Tablets every day 12/17/2015 Potassium Chloride ER 1 by mouth every Unknown - day taken along 12/17/2015 10Meq Capsules ER with Bumetanide Warfarin Sodium 1 tablet po daily Cardikyung, - 5mg as directed MD Carlos A 12/17/2015 Iron daily Unknown - 12/12/2014 Losartan 1 by mouth every Unknown - [...] Yogi Pelayo, - 20mg Tablets day Bhargav, [facility], 10/03/2013 [facility] Medications Administered in Office Medication SIG Qnty Indications Ordering Provider Date Triamcinolone (Kenalog) Cain Watson MD 02/18/2015 Injection Inj, Regadenoson, 0.1 MG Arabella Mcgee M.D. 08/15/2013 Injection Technetium TC 99M Arabella Mcgee M.D. 08/15/2013 Tetrofosmin, Per Unit Dose Up To 40 Millicuries Injection Technetium TC 99M Yogi Pelayo M.D., [facility], 10/25/2012 Tetrofosmin, Per Unit Dose Up [facility] To 40 Millicuries Injection Immunizations CPT Code Status Date Vaccine Lot # [id number] Given 01/19/2018 Influenza Virus Vaccine, Quadrivalent, Split, [id number] Preservative Free 28941 Given 02/17/2017 Influenza Virus Vaccine, Quadrivalent, Split, [id number] Preservative Free 27897 Given 02/17/2017 Pneumococcal Conjugate Vaccine 13 Valent For [id number] Intramuscular Use 32478 Given 01/10/2014 Influenza Virus 3Yrs & Over 95836 Given 08/19/2010 Zoster (Zostavax) 23796 Given 03/25/2009 Pneumonia Vaccine Vital Signs Date Vital Result Comment 07/08/2018 11:27am Height 72 inches 6'0" Weight [...] Date Facility Test Result H/L Range Note Stool Occult 07/16/2018 [facility] Stool Occult SEE RESULT 1 Blood, Screen [address] Blood, [place] [address] [phone] CBC Auto Diff 07/16/2018 [facility] White Blood 8.3 10^3/uL N 3.5-10.[address] [place] [address] [phone] Red Blood Count 4.13 10^6/uL Low 4.18-5.48 [...] % Nucleated Red Blood Cells % 0 Comp Metabolic Panel 07/16/2018 [facility] Sodium 137 mmol/L N 135-[address] [place] [address] [phone] Potassium 4.9 mmol/L N 3.5-5.0 Chloride 105 [...] Egfr Non- 68.2 >60 Egfr 82.5 >60 2 Inr/Protime 07/16/2018 [facility] Inr 0.98 N 0.77-1.[address] [place], [place] [id number] [phone] Laboratory test 07/16/2018 [facility] Partial 31.0 seconds N 26.0-36.[address] [place] [address] PTT [phone] Type & Screen 07/16/2018 [facility] Patient O Positive [address] Blood Type [place], [place] [id number] [phone] Antibody Screen NEGATIVE Laboratory test 07/16/2018 [facility] Magnesium 1.9 mg/dL N 1.9-2.[address] [place], [place] [address] [phone] Stool Occult 07/16/2018 [facility] Stool Occult SEE RESULT 3 Blood, Screen [address] Blood, [place] [address] [phone] Laboratory test 07/08/2018 [facility] Hemoglobin A1c 6.7 5-7 finding Ua Routine 12/28/2017 [facility] Ua Specific 1.105 [place] Ua PH 5 Ua Color dark yellow Ua Appera cloudy Ua WBC large Ua Protein 100 Ua Glucose 250 Ua Ketones neg Ua Bilirubin neg Ua Urobilinogen neg Ua Nitrite neg Ua Occult Blood large Urine Culture And 12/28/2017 [facility] Urine SEE RESULT 4 , [address] [place] [address] [phone] Laboratory test 12/01/2017 [facility] Surgical SEE RESULT 6 , [address] [place] [address] [phone] Urine Culture And 11/21/2017 [facility] Urine SEE RESULT 8 , [address] [place] [address] [phone] Poc Urinalysis 11/21/2017 [facility] Poc Glucose, Negative Negative [address] [place] [address] [phone] Poc Bilirubin, Urine 1+ Abnormal Negative Poc Ketone, Urine Trace Abnormal Negative Poc Specific [place], Urine 1.020 N 1.010-1.030 Poc Blood, Urine 3+ Abnormal Negative Poc pH, Urine 7.0 N 5-9 Poc Protein, Urine 3+ Abnormal Negative Poc Urobilinogen, Urine 0.2 Negative Poc Nitrite, Urine Negative Negative Poc Leukocytes, Urine 3+ Abnormal Negative Poc Color, Urine Dark yellow Poc Clarity, Urine Turbid 10 Laboratory test 11/21/2017 [facility] Point of Care 241 mg/dL High 70-100 [address] [place] [address] [phone] Laboratory test 11/18/2017 [facility] Hemoglobin A1c 7.6 % High 4.0-5.6 [address] (Glyco HGB) [place] [address] [phone] PSA Diagnostic 0.357 ng/mL N 0-4.000 13 Basic Metabolic Panel 11/18/2017 [facility] Sodium 138 mmol/L N 135-[address] [place] [address] [phone] Potassium 4.5 mmol/L N 3.5-5.0 Chloride 103 mmol/L N 101-111 Co2 Carbon Dioxide 27 mmol/L N 22-32 Anion Gap 8 mmol/L N 2-11 Glucose 176 mg/dL High 70-100 Blood Urea Nitrogen 20 mg/dL N 6-24 Creatinine 1.10 mg/dL N 0.67-1.17 BUN/Creatinine Ratio 18.2 N 8-20 Calcium 9.1 mg/dL N 8.6-10.3 Egfr Non- 64.1 >60 Egfr 77.5 >60 14 Lipid Profile 09/30/2017 [facility] Triglycerides 161 mg/dL 15, 16 (Trig/Chol/HDL) [address] [place] [address] [phone] Cholesterol 155 mg/dL 17 HDL Cholesterol 29.5 mg/dL 18 LDL Cholesterol 93 mg/dL 19 Laboratory test 09/08/2017 [facility] Hemoglobin A1c 7.5 High 5-7 finding Laboratory test 09/01/2017 [facility] Magnesium 1.6 mg/dL Low 1.9-2.[address] [place] [address] [phone] Lactic Acid 1.6 mmol/L N 0.5-2.0 20 CBC Auto 09/01/2017 [facility] White Blood 11.2 10^3/uL High 3.5-10.[address] [place] [address] [phone] Red Blood Count 4.55 10^6/uL N 4.0-5.4 [...] Red Blood Cells % 0 Inr/Protime 09/01/2017 [facility] Inr 0.93 N 0.77-1.[address] [place] [address] [phone] Laboratory test 09/01/2017 [facility] Partial 26.8 N 26.0- 36.[address] [place] [address] PTT [phone] Comp Metabolic 09/01/2017 [facility] Sodium 133 mmol/L Low 139 -[address] [place] [address] [phone] Potassium 5.0 mmol/L N 3.5-5.0 Chloride 100 [...] Egfr Non- 65.5 >60 Egfr 84.2 >60 21 Lipid Profile 09/01/2017 [facility] Triglycerides 122 mg/dL 22 (Trig/Chol/HDL) [address] [place] [address] [phone] Cholesterol 159 mg/dL 23 HDL Cholesterol 32.6 mg/dL 24 LDL Cholesterol 102 mg/dL 25 Laboratory test 09/01/2017 [facility] Troponin-I (TnI) 0.03 ng/ mL <0.[address] [place] [address] [phone] Type & Screen 09/01/2017 [facility] Patient Blood O Positive [address] [place] [address] [phone] Antibody Screen NEGATIVE Laboratory test 09/01/2017 [facility] C Reactive 10.06 High < 5.[address] Protein mg/[place] [address] [phone] Laboratory test 09/01/2017 [facility] Point of 245 High 70- [address] Care mg/[place] [address] Glucose [phone] Urine Culture 08/28/2017 [facility] Urine SEE 28, And [address] Culture RESULT 29 [place] [address] BELOW [phone] Poc Urinalysis 08/28/2017 [facility] Poc Trace Abnormal Negative [address] Glucose, [place] [address] Urine [phone] Poc Bilirubin, Urine Negative Negative Poc Ketone, Urine Negative Negative Poc Specific [place], Urine 1.020 N 1.010-1.030 Poc Blood, Urine 3+ Abnormal Negative Poc pH, Urine 5.0 N 5-9 Poc Protein, Urine 2+ Abnormal Negative Poc Urobilinogen, Urine 0.2 Negative Poc Nitrite, Urine Positive Abnormal Negative Poc Leukocytes, Urine 1+ Abnormal Negative Poc Color, Urine Yellow Poc Clarity, Urine Cloudy 30 Urine Microalbumin 07/10/2017 [facility] Ur Microalbumin 87.6 mg /L Random [address] (mg/L) [place] [address] [phone] Urine Creatinine 115.44 mg/dL Urine Microalbumin/Creatinine 75.8 ug/mg High <31 Comp Metabolic Panel 07/09/2017 [facility] Sodium 139 mmol/L N 139-[address] [place] [address] [phone] Potassium 4.6 mmol/L N 3.5-5.0 Chloride 103 [...] Egfr 84.2 >60 31 Lipid Profile 07/09/2017 [facility] Triglycerides 172 mg/dL 32 (Trig/Chol/HDL) [address] [place] [address] [phone] Cholesterol 147 mg/dL 33 HDL Cholesterol 27.6 mg/dL 34 LDL Cholesterol 85 mg/dL 35 Laboratory test 07/09/2017 [facility] Hemoglobin A1c 7.6 % High 4.0-5.6 [address] (Glyco HGB) [place] [address] [phone] Laboratory test 01/25/2017 [facility] Alt 26 U/L N 7-52 [address] [place] [address] [phone] Ast (Sgot) 23 U/L N 13-39 38 Lipid Profile 01/25/2017 [facility] Triglycerides 193 mg/dL N 39 (Trig/Chol/HDL) [address] [place] [address] [phone] Cholesterol 158 mg/dL N 40 HDL Cholesterol 33.8 mg/dL N 41 LDL Cholesterol 86 mg/dL N 42 CBC Auto Diff 08/14/2016 [facility] White Blood 8.3 10^3/uL N 3.5-10.[address] [place] [address] [phone] Red Blood Count 4.55 10^6/uL N 4.0-5.4 [...] % 0 N Comp Metabolic Panel 08/14/2016 [facility] Sodium 137 mmol/L N 133-[address] [place] [address] [phone] Potassium 4.6 mmol/L N 3.5-5.0 Chloride 104 [...] N >60 Egfr 94.4 N >60 43 Lipid Profile 08/14/2016 [facility] Triglycerides 168 mg/dL N 44 (Trig/Chol/HDL) [address] [place] [address] [phone] Cholesterol 167 mg/dL N 45 HDL Cholesterol 33.3 mg/dL N 46 LDL Cholesterol 100 mg/dL N 47 Laboratory test 08/14/2016 [facility] Hemoglobin A1c 6.9 % High Less than [address] (Glyco HGB) 6.0 [place] [address] [phone] Laboratory test 02/18/2016 [facility] Hemoglobin A1c 6.3 % High Less than [address] (Glyco HGB) 6.0 [place] [address] [phone] CBC Auto Diff 08/26/2015 [facility] White Blood 8.5 N 3.5- 10.[address] Count 10^3/[place] [address] [phone] Red Blood Count 4.56 10^6/uL N 4.0-5.4 [...] Cells % 0 N Comp Metabolic Panel 08/26/2015 [facility] Sodium 138 mmol/L N 133-[address] [place] [address] [phone] Potassium 4.3 mmol/L N 3.5-5.0 Chloride 104 [...] 72.7 N >60 Egfr 93.5 N >60 50 Lipid Profile 08/26/2015 [facility] Triglycerides 178 mg/dL N 51 (Trig/Chol/HDL) [address] [place] [address] [phone] Cholesterol 134 mg/dL N 52 HDL Cholesterol 29.2 mg/dL N 53 LDL Cholesterol 69 mg/dL N 54 Laboratory test 08/26/2015 [facility] Hemoglobin A1c 6.2 % High Less [address] (Glyco HGB) than 6.0 [place], [place] [address] [phone] Pre Cath Panel 09/04/2014 [facility] Partial 32.2 N 26.0-36. [address] Thrombo Time seconds 3 [place] [address] PTT [phone] CBC Auto Diff 09/04/2014 [facility] White Blood 8.8 10^3/uL N 4.8-10.[address] [place] [address] [phone] Red Blood Count 4.23 10^6/uL N 4.0-5.4 [...] Nucleated Red Blood Cells % 0 N Inr/Protime 09/04/2014 [facility] Inr 0.96 N 0.78-1.[address] [place] [address] [phone] Basic Metabolic 09/04/2014 [facility] Sodium 138 mmol/L N 133- [address] [place] [address] [phone] Potassium 4.8 mmol/L N 3.5-5.0 Chloride 104 mmol/L N 101-111 Co2 Carbon Dioxide 30 mmol/L N 22-32 Anion Gap 4 mmol/L N 2-11 Glucose 147 mg/dL High 70-100 Blood Urea Nitrogen 20 mg/dL N 6-24 Creatinine 1.15 mg/dL N 0.67-1.17 BUN/Creatinine Ratio 17.4 N 8-20 Calcium 9.1 mg/dL N 8.6-10.3 Egfr Non- 61.3 N >60 Egfr 78.9 N >60 56 CBC Auto Diff 08/17/2014 [facility] White Blood 8.0 10^3/uL N 4.8-10.[address] [place] [address] [phone] Red Blood Count 4.28 10^6/uL N 4.0-5.4 [...] Cells % 0.1 N Laboratory test 08/17/2014 [facility] Hemoglobin A1c 6.2 % High Less than [address] 6.[address] [place] [address] [phone] Comp Metabolic 08/17/2014 [facility] Sodium 137 N 133-[address] mmol/[place] [address] [phone] Potassium 4.2 mmol/L N 3.5-5.0 Chloride 102 [...] 66.7 N >60 Egfr 85.7 N >60 59 Lipid Profile 08/17/2014 [facility] Triglycerides 124 mg/dL N 60 (Trig/Chol/HDL) [address] [place] [address] [phone] Cholesterol 147 mg/dL N 61 HDL Cholesterol 29.7 mg/dL N 62 LDL Cholesterol 93 mg/dL N 63 Laboratory test 08/17/2014 [facility] PSA Diagnostic 0.232 N 0 -4.0 [address] ng/[place] [address] [phone] Comp Metabolic 03/07/2014 [facility] Sodium 136 mmol/L N 133- [address] [place] [address] [phone] Potassium 3.9 mmol/L N 3.5-5.0 65 Chloride 102 mmol/L N 101-111 Co2 Carbon [...] 69.8 N >60 Egfr 89.8 N >60 66 Lipid Profile 03/07/2014 [facility] Triglycerides 127 mg/dL N 67 (Trig/Chol/HDL) [address] [place] [address] [phone] Cholesterol 130 mg/dL N 68 HDL Cholesterol 29.0 mg/dL N 69 LDL Cholesterol 76 mg/dL N 70 Laboratory test 03/07/2014 [facility] Hemoglobin A1c 6.6 % High Less than [address] 6[address] [place] [address] [phone] Basic Metabolic 09/28/2013 [facility] Sodium 135 N 133-[address] mmol/[place] [address] [phone] Potassium 4.7 mmol/L N 3.7-5.6 Chloride 102 mmol/L N 101-111 Co2 Carbon Dioxide 29 mmol/L N 22-32 Anion Gap 4 mmol/L N 2-11 Glucose 143 mg/dL High 70-100 Blood Urea Nitrogen 18 mg/dL N 6-24 Creatinine 1.12 mg/dL N 0.67-1.17 BUN/Creatinine Ratio 16.1 N 8-20 Calcium 9.0 mg/dL N 8.6-10.3 Egfr Non- 63.4 N >60 Egfr 81.5 N >60 72 Basic Metabolic Panel 09/22/2013 [facility] Sodium 138 mmol/L N 133-145 [address] [place] [address] [phone] Potassium 4.0 mmol/L N 3.7-5.6 Chloride 104 mmol/L N 101-111 Co2 Carbon Dioxide 27 mmol/L N 22-32 Anion Gap 7 mmol/L N 2-11 Glucose 107 mg/dL High 70-100 Blood Urea Nitrogen 26 mg/dL High 6-24 Creatinine 1.08 mg/dL N 0.67-1.17 BUN/Creatinine Ratio 24.1 High 8-20 Calcium 9.2 mg/dL N 8.6-10.3 Egfr Non- 66.1 N >60 Egfr 85.0 N >60 73 Inr/Protime 09/22/2013 [facility] Inr 0.92 N 0.85-1.06 [address] [place] [address] [phone] CBC Auto Diff 09/22/2013 [facility] White Blood 8.5 10^3/uL N 4.8-10.[address] [place] [address] [phone] Red Blood Count 4.30 10^6/uL N 4.0-5.4 [...] Nucleated Red Blood Cells % 0 N Cath Panel 09/22/2013 [facility] Activated 30.5 seconds N 24.0 -36.[address] [place] [address] Thrombo Time [phone] Basic Metabolic 09/09/2013 [facility] Sodium 136 mmol/L N 133- [address] [place] [address] [phone] Potassium 4.3 mmol/L N 3.7-5.6 Chloride 104 [...] N >60 74 CBC No Diff 09/06/2013 [facility] White Blood 7.0 10^3/uL N 4.8-10.[address] [place] [address] [phone] Red Blood Count 4.34 10^6/uL N 4.0-5.4 [...] um3 N 7.4-10.4 Basic Metabolic Panel 09/06/2013 [facility] Sodium 137 mmol/L N 133-[address] [place] [address] [phone] Potassium 4.6 mmol/L N 3.7-5.6 Chloride 104 mmol/L N 101-111 Co2 Carbon Dioxide 28 mmol/L N 22-32 Anion Gap 5 mmol/L N 2-11 Glucose 153 mg/dL High 70-100 Blood Urea Nitrogen 23 mg/dL N 6-24 Creatinine 1.13 mg/dL N 0.67-1.17 BUN/Creatinine Ratio 20.4 High 8-20 Calcium 8.9 mg/dL N 8.6-10.3 Egfr Non- 62.8 N >60 Egfr 80.7 N >60 75 Inr/Protime 09/06/2013 [facility] Inr 0.91 N 0.85-1.06 [address] [place] [address] [phone] Laboratory test 09/06/2013 [facility] Activated 30.4 N 24.0- 36.1 finding 101 [facility] [place] [address] Time [phone] Lipid Profile 08/24/2013 [facility] Triglycerides 128 mg/dL N 76 (Trig/Chol/HDL) [address] [place] [address] [phone] Cholesterol 130 mg/dL N 77 HDL Cholesterol 28.4 mg/dL N 78 LDL Cholesterol 76 mg/dL N 79 Order 08/15/2013 [facility] Stress Test, <pending> Exercise Nuclear Comp Metabolic 03/06/2013 [facility] Sodium 138 mmol/L 133- 145 Panel [address] [place] [address] [phone] Potassium 4.3 mmol/L 3.5-5.0 Chloride 104 mmol/L [...] Egfr 93.2 >60 80 Laboratory test 03/06/2013 [facility] Hemoglobin A1c 5.7 % Less than 81 finding 101 [facility] 6.[address] [place] [address] [phone] Lipid Profile 12/13/2012 [facility] Triglycerides 141 mg/dL 40-200 (Trig/Chol/HDL) [address] [place] [address] [phone] Cholesterol 140 mg/dL Less than 200 HDL Cholesterol 30 mg/dL Low 40-60 82 Cholesterol/HDL Ratio 4.7 Average High 1-4.44 LDL Cholesterol 81.8 Less Than 100 83 Laboratory test 12/13/2012 [facility] Ast 20 U/L 12-42 84 finding [address] [place] [address] [phone] Basic Metabolic Panel 08/08/2012 [facility] Sodium 138 mmol/L 133-145 [address] [place] [address] [phone] Potassium 4.2 mmol/L 3.5-5.0 Chloride 105 mmol/L 101-111 Co2 Carbon Dioxide 28.0 mmol/L 22-32 Anion Gap 5.0 mmol/L 2-11 Glucose 115 mg/dL High 70-100 Blood Urea Nitrogen 14 mg/dL 6-24 Creatinine 1.00 mg/dL 0.50-1.40 BUN/Creatinine Ratio 14.0 8-20 Calcium 9.0 mg/dL 8.1-9.9 Egfr Non- 72.5 >60 Egfr 93.2 >60 85 CBC No Diff 08/01/2012 [facility] White Blood 7.9 10^3/uL 4.8 -10.[address] [place] [address] [phone] Red Blood Count 4.28 10^6/uL 4.0-5.4 Hemoglobin 13.5 g/dL Low 14.0-18.0 Hematocrit 40 % Low 42-52 Mean Corpuscular Volume 92 fL 80-94 Mean Corpuscular Hemoglobin 32 pg High 27-31 Mean Corpuscular HGB Conc 34 g/dL 31-36 Red Cell Distribution Width 13 % 10.5-15 Platelet Count 200 10^3/uL 150-450 Mean Platelet Volume 8 um3 7.4-10.4 Laboratory test finding 08/01/2012 [facility] Inr 0.90 0.87- 0.97 [address] [place] [address] [phone] Activated Partial Thrombo Time 30.6 seconds 22.18-37.18 Basic Metabolic Panel 08/01/2012 [facility] Sodium 137 mmol/L 133-145 [address] [place] [address] [phone] Potassium 4.1 mmol/L 3.5-5.0 Chloride 106 mmol/L 101-111 Co2 Carbon Dioxide 25.0 mmol/L 22-32 Anion Gap 6.0 mmol/L 2-11 Glucose 103 mg/dL High 70-100 Blood Urea Nitrogen 24 mg/dL 6-24 Creatinine 1.30 mg/dL 0.50-1.40 BUN/Creatinine Ratio 18.5 8-20 Calcium 9.0 mg/dL 8.1-9.9 Egfr Non- 53.5 >60 Egfr 68.8 >60 86 1 SEE RESULT BELOW Name: DENNYS PRADO : [address]: Juanpablo Norwood MD Acct: [id number] Unit: [id number] AGE: 83 Location: ED Re07/16/18 SEX: M Status: REG ER SPEC: [id number] MARYLU: 07/16/18-[address]: Mauro FINN REQ: [id number] RECD: 07/16/18 STATUS: KEVAN LOERA DR: Juanpablo Wallace MD _ SOURCE: STOOL SPDESC: ORDERED: Occult Bl, Scn Procedure Result Reported Site Stool Occult Blood (1) Final 07/16/18- 190 ML Stool Occult Blood Positive * ML - Main Lab . END OF REPORT DEPARTMENT OF PATHOLOGY, [address] [place] [address] Aubrey Lee M.D. Director [facility] # [id number] 2 Because ethnic data is not always readily [...] 15-29 5 Kidney failure <15 (or dialysis) 3 SEE RESULT BELOW Name: DENNYS PRADO : [address]: Juanpablo Norwood MD Acct: [id number] Unit: [id number] AGE: 83 Location: ED Re07/16/18 SEX: M Status: REG ER SPEC: [id number] MARYLU: 07/16/[address] [facility] [address]: Mauro FINN REQ: [id number] RECD: 07/16/18 STATUS: COMP HOLLY DR: Juanpablo Wallace MD _ SOURCE: STOOL SPDESC: ORDERED: Occult Bl, Scn Procedure Result Reported Site Stool Occult Blood (1) Final 07/16/18- 1718 ML Stool Occult Blood Negative * ML - Main Lab . END OF REPORT DEPARTMENT OF PATHOLOGY, [address] [place] [address] Aubrey Lee M.D. Director [facility] # [id number] SEE RESULT BELOW Name: DENNYS PRADO : [address]: Bimal Torre MD Acct: [id number] Unit: [id number] AGE: 82 Location: [facility] Re12/28/17 SEX: M Status: REG REF SPEC: [id number] MARYLU: 12/28/17-[address] [facility] [address]: Bimal Torre MD REQ: [id number] RECD: 12/28/17 STATUS: COMP _ SOURCE: URINE SPDC: ORDERED: Urine Culture COMMENTS: [id number] Urine Source: Random Procedure Result Reported Site Urine Culture Final 12/31/17- 0850 ML Organism 1 KLEBSIELLA PNEUMONIAE [place] Count >100,000 (Many) CFU/ML Organism 2 ENTEROCOCCUS FAECALIS [place] Count 25-50,000 (Moderate) CFU/ML 1. KLEBSIELLA PNEUMONIAE [facility].I.C. RX --------- ------ Ampicillin R Cefazolin <=4 S Cefepime <=1 S Ceftriaxone <=1 S Ciprofloxacin <=0.25 S Gentamicin <=1 S Levofloxacin <=0.12 S Meropenem <=0.25 S Nitrofurantoin 64 I Tetracycline <=1 S Pipercillin/Tazobactam <=4 S Trimethoprim/Sulfamethoxazole <=20 S Amoxicillin/Clavulanic Acid 4 S Aztreonam <=1 S CONTINUED ON NEXT PAGE DEPARTMENT OF PATHOLOGY, [address] [place] [address] Aubrey Lee M.D. Director [facility] # [id number] Patient: DENNYS PRADO [id number] (Continued) Specimen: [id number] Collected: 12/28/17-1329 Received: 12/28/17 (Continued) Procedure Result Reported Site Urine Culture Final (continued) 12/31/17- 849 2. ENTEROCOCCUS FAECALIS M.I.C. RX --------- ------ Ampicillin <=2 S Penicillin 4 S Ciprofloxacin <=0.5 S Gentamicin High Level S Levofloxacin 1 S Linezolid 2 S Nitrofurantoin <=16 S * Quinupristin/Dalfopristin 4 R * Streptomycin High Level S Tetracycline >=16 R Tigecycline <=0.12 S Vancomycin 1 S Imipenem-Deduced S * Ampicillin/Sulbactam-Deduced S * These antibiotics are not available in the [facility] Formulary Contact the Microbiology Department for any additional antibiotic reporting. Contact the Microbiology Department for any additional antibiotic reporting. * ML - Main Lab . END OF REPORT DEPARTMENT OF PATHOLOGY, [address] [place] [address] Aubrey Lee M.D. Director [facility] # [id number]:Morphology: pink papule with small telangiectasias. ;DDX: Basal Cell Carcinoma;Location: r 7 SEE RESULT BELOW Name: DENNYS PRADO : [address]: Jennifer Marte MD Acct: [id number] Unit: [id number] AGE: 82 Location: [facility] Re12/01/17 SEX: M Status: REG REF SPEC: [id number] MARYLU: 12/01/17-[address] [facility] [address]: Jennifer Marte MD REQ: [id number] RECD: 12/01/17 STATUS: OJ LOERA DR: Edwin Márquez MD _ ORDERED: LEVEL 4 COMMENTS: [id number] FINAL DIAGNOSIS Skin, right ala, biopsy: -- Basal cell carcinoma, superficial and nodular type. PRE-OPERATIVE DIAGNOSIS [place] papule with small telangiectasia, basal cell carcinoma GROSS DESCRIPTION The specimen is received in formalin labeled, Right Ala, and consists of a 0.4 by up to 0.4 cm balderas-white irregular skin shave which is inked, bisected and submitted entirely in one cassette. Signed by and Reported on: Lauryn Robles MD 12/02/17 0839 END OF REPORT DEPARTMENT OF PATHOLOGY, [address] [place] [address] Aubrey Lee M.D. Director [facility] # [id number] SEE RESULT BELOW Name: DENNYS PRADO : [address]: Laurence Ng MD Acct: [id number] Unit: [id number] AGE: 82 Location: [facility] Re11/21/17 SEX: M Status: DEP ER SPEC: [id number] MARYLU: 11/21/[address] [facility] [address]: Sandee Gee NP REQ: [id number] RECD: 11/21/17 STATUS: KEVAN LOERA DR: Francois [facility] Edwin Márquez MD _ SOURCE: URINE SPDESC: ORDERED: Urine Culture COMMENTS: [id number] Procedure Result Reported Site Urine Culture Final 11/23/17- 1007 ML Organism 1 KLEBSIELLA PNEUMONIAE [place] Count 25-50,000 (Moderate) CFU/ML Organism 2 NORMAL ALVINA [place] Count 10-25,000 (Moderate) CFU/ML 1. KLEBSIELLA PNEUMONIAE [...] . END OF REPORT DEPARTMENT OF PATHOLOGY, [address] [place] [address] Aubrey Lee M.D. Director [facility] # [id number] 10 Cement Finisher Apprentice: [id number] Cement Finisher Apprentice: [id number] Therapeutic target for the treatment of diabetes mellitus patients is <7% HBA1C, and in selective patients <6.0%. Please refer to [place] [employer] diabetic care guidelines for further information. 13 Serum levels of PSA measured using the Lynda Liang DXI Hybritech immunoassay should not be interpreted [...] 130-159 High: 160-189 Very High: >189 20 [facility] Severe Sepsis and Septic Shock Management Bundle Measure requires all lactic acids initially measuring >2.0 mmol/L be repeated. 21 Because ethnic data is not always readily [...] 15-29 5 Kidney failure <15 (or dialysis) 22 Desirable: <150 Borderline High: 150-199 High: 200-499 Very High: >500 23 Desirable: <200 Borderline High: 200-239 High: >239 24 Low: <40 Desirable: 40-60 High: >60 25 Desirable: <100 Near Optimal: 100-129 Borderline High: 130-159 High: 160-189 Very High: >189 26 Acute inflammation: >10.00 27 Cement Finisher Apprentice: [id number] SEE RESULT BELOW Name: DENNYS PRADO : [address]: Edward Zeng MD Acct: [id number] Unit: [id number] AGE: 82 Location: [facility] Re08/28/17 SEX: M Status: DEP ER SPEC: [id number] MARYLU: 08/28/17-[address] [facility] [address]: Yuok Ceron NP REQ: [id number] RECD: 08/29/17-1318 STATUS: KEVAN LOERA DR: Edward Márquez MD _ SOURCE: URINE SPDESC: ORDERED: Urine Culture COMMENTS: [id number] Procedure Result Reported Site Urine Culture Final 08/31/17- 0751 ML Organism 1 ESCHERICHIA COLI [place] Count >100,000 (Many) CFU/ML 1. ESCHERICHIA COLI [...] . END OF REPORT DEPARTMENT OF PATHOLOGY, [address] [place] [address] Aubrey Lee M.D. Director [facility] # [id number] 30 Cement Finisher Apprentice: [id number] 31 Because ethnic data is not always [...] in selective patients <6.0%. Please refer to [place] [employer] diabetic care guidelines for further [...] 5 Kidney failure <15 (or dialysis) 44 Desirable <150 Borderline high 150-199 High 200-499 Very High >500 45 Desirable <200 Borderline high 200-239 High >239 46 Low <40 Desirable: 40-60 High: >60 47 Desirable: <100 mg/dL Near Optimal: 100-129 mg/dL Borderline High: 130-159 mg/dL High: 160-189 mg/dL Very High: >189 mg/dL 48 Therapeutic target for the treatment of diabetes Mellitus patients is <7% HBA1C, and in selective patients <6.0%.Please refer to [place] [employer] Diabetic care guidelines for further information. 49 Therapeutic target for the treatment of diabetes Mellitus patients is <7% HBA1C, and in selective patients <6.0%.Please refer to [place] [employer] Diabetic care guidelines for further information. 50 Because ethnic data is not always readily [...] 15-29 5 Kidney failure <15 (or dialysis) 51 Desirable <150 Borderline high 150-199 High 200-499 Very High >500 52 Desirable <200 Borderline high 200-239 High >239 53 Low <40 Desirable: 40-60 High: >60 54 Desirable: <100 mg/dL Near Optimal: 100-129 mg/dL Borderline High: 130-159 mg/dL High: 160-189 mg/dL Very High: >189 mg/dL 55 Therapeutic target for the treatment of diabetes Mellitus patients is <7% HBA1C, and in selective patients <6.0%.Please refer to [place] [employer] Diabetic care guidelines for further information. 56 Because ethnic data is not always [...] failure <15 (or dialysis) 57 FASTING 58 Therapeutic target for the treatment of diabetes Mellitus patients is <7% HBA1C, and in selective patients <6.0%.Please refer to [place] [employer] Diabetic care guidelines for further information. 59 Because ethnic data is not always readily [...] 15-29 5 Kidney failure <15 (or dialysis) 60 Desirable <150 Borderline high 150-199 High 200-499 Very High >500 61 Desirable <200 Borderline high 200-239 High >239 62 Low <40 Desirable: 40-60 High: >60 63 Desirable: <100 mg/dL Near Optimal: 100-129 mg/dL Borderline High: 130-159 mg/dL High: 160-189 mg/dL Very High: >189 mg/dL 64 Serum levels of PSA measured using the Lynda Liang DXI Hybritech immunoassay should not be interpreted [...] methods or kits cannot be used interchangeably. 65 Potassium reference range changed effective 02/11/14 66 Because ethnic data is not always readily [...] 15-29 5 Kidney failure <15 (or dialysis) 67 Desirable <150 Borderline high 150-199 High 200-499 Very High >500 68 Desirable <200 Borderline high 200-239 High >239 69 Low <40 Desirable: 40-60 High: >60 70 Desirable <100 Near Optimal 100-129 Borderline high 130-159 High 160-189 Very High >189 71 Therapeutic target for the treatment of diabetes Mellitus patients is <7% HBA1C, and in selective patients <6.0%.Please refer to [place] [employer] Diabetic care guidelines for further information. 72 Because ethnic data is not always [...] and in selective patients <6.0%.Please refer to [place] [employer] Diabetic care guidelines for further [...] dialysis) Procedures Date Code Description Status 02/10/2018 49953 EKG Tracing & Interpretation Completed 02/11/2017 114809468 Diabetic Retinal Eye Exam Completed 12/18/2015 90940 EKG Tracing & Interpretation Completed 02/18/2015 08694 Inject/Drain Joint/Bursa Major W/O US Completed 12/11/2014 48097 Holter Monitor Review (24 hr)dr review & interp only Completed 10/17/2014 99613 ECHO Transthorasic Realtime 2D W Doppler & Color Flow Completed Hosp 09/26/2014 39093 EKG Tracing & Interpretation Completed 08/15/2014 44794 EKG Tracing & Interpretation Completed 08/01/2014 88995 ECHO Transthorasic Realtime 2D W Doppler & Color Flow Completed Hosp 03/23/2014 41731 EKG Tracing & Interpretation Completed 10/03/2013 83002 EKG Tracing & Interpretation Completed 09/27/2013 73063 EKG, Interpretation Only Completed 09/26/2013 13963 Percutaneous Transcatheter Placement Of Intracoronary Completed Stent 09/26/2013 37683 Percutaneous Transcatheter Placement Of Intracoronary Completed Stent 09/26/2013 52498 EKG, Interpretation Only Completed 09/26/2013 89298 Percutaneous Transcatheter Placement Of Intracoronary Completed Stent 09/08/2013 26108 RT & lt Cath W/Injx HRT Art&L Ventr Img S&I Completed 09/05/2013 66493 Treadmill Interp/Report Only Completed 09/05/2013 69746 Stress Test Supervsn W/Out I/R Completed 08/30/2013 34104 ECHO Transthorasic Realtime 2D W Doppler & Color Flow Completed Hosp 08/18/2013 99416 EKG Tracing & Interpretation Completed 08/15/2013 42445 Stress Test Completed 08/15/2013 31447 Myocardial Perfusion Imaging Tomographic (Spect) Completed Multiple Studies 02/20/2013 28173 EKG Tracing & Interpretation Completed 10/25/2012 27890 Stress Test Completed 10/25/2012 43137 Myocardial Perfusion Imaging Tomographic (Spect) Completed Multiple Studies 08/12/2012 25198 EKG Tracing & Interpretation Completed 08/05/2012 09255 Left Heart Cath. Incl S/I Coronaries, Angio S/I V Gram Completed If Done 08/05/2012 71086 Percutaneous Transcatheter Placement Of Intracoronary Completed Stent 08/05/2012 15707 Percutaneous Transcatheter Placement Of Intracoronary Completed Stent 07/20/2012 87419 ECHO Transthoracic, Real-Time 2D With Doppler And Completed Color Flow 03/15/2012 17750 Polysomnography Sleep Staging 4+ Parameters Completed 02/07/2002 91366442 Colonoscopy Completed Encounters Type Date Location Provider Dx Diagnosis Office Visit 07/18/2018 [facility] Michael Flynn, K62.5 Hemorrhage of anus 10:17a ny Lozada M.D. and rectum Hospitalists I48.91 Unspecified atrial fibrillation Office Visit 07/16/2018 10:16a 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 infection, site [address] not specified R31.9 Hematuria, unspecified Office Visit 11/26/2017 10:30a [facility] Internal Anna Marie N10 Acute pyelonephritis Medicine Marker, RPA-C Z85.46 Personal history of malignant neoplasm of prostate Office Visit 09/08/2017 8:20a [facility] Internal Renita Randhawa, I10 Essential ( primary) Medicine - [place] [employer]GET CONSULTANT hypertension Rd E11.21 Type 2 diabetes mellitus with diabetic nephropathy R97.21 Rising PSA fol treatment for malignant neoplasm of prostate E78.5 Hyperlipidemia, unspecified Office Visit 09/02/2017 8:57a [facility] Chiqui Stovall, I16.1 Hypertensive Assoc,pc N.P. emergency Hospitalists G93.41 Metabolic encephalopathy N39.0 Urinary tract infection, site not specified E83.42 Hypomagnesemia Office Visit 09/01/2017 [facility] Jessica Talbot I16.1 Hypertensive 8:55a Assoc,pc Sally, CERAMIC MAKER DEMONSTRATOR emergency Hospitalists G93.41 Metabolic encephalopathy N39.0 Urinary tract infection, site not specified E83.42 Hypomagnesemia Office Visit 07/14/2017 9:40a [facility] Internal Edwin Girard E11.21 Type 2 diabetes Sarai Márquez M.D.,FACP mellitus with [address] diabetic nephropathy R97.21 Rising PSA fol treatment for malignant neoplasm of prostate I10 Essential (primary) hypertension Office Visit 02/17/2017 9:10a [facility] Internal Edwin Girard E11.9 Type 2 diabetes Sarai Márquez M.D.,FACP mellitus without [address] complications I10 Essential (primary) hypertension 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 Rising PSA 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 Z23 Encounter for immunization Office Visit 01/25/2017 9:00a [facility] Yogi Pelayo, I10 Essential (primary) [facility] Stencil [facility], hypertension FSCAI 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 knee Office Visit 12/13/2014 [place] Yogi Pelayo, 424.1 Aortic Valve Disorder 3:40p Cardiology Of Bhargav, FACC, Stencil Typist AT [facility] FSCAI 401.9 Hypertension Unspec 272.4 Hyperlipidemia Other Unspec Office Visit 11/06/2014 2:20p [facility] Yogi Pelayo, 424.1 Aortic Valve [facility]encil [facility], Disorder FSCAI 401.9 Hypertension Unspec 414.9 Ischemic Heart Disease Chronic Unspec 272.4 Hyperlipidemia Other Unspec Office Visit 09/26/2014 1:20p [facility] Yogi Pelayo, 424.1 Aortic Valve Of Stencil Typist [facility] FAC, Disorder FSCAI 401.9 Hypertension Unspec 414.9 Ischemic Heart Disease Chronic Unspec 272.4 Hyperlipidemia Other Unspec Office Visit 08/15/2014 10:00a [facility] Yogi Pelayo, 424.1 Aortic Valve Of Stencil Typist [facility] FACC, Disorder FSCAI 401.9 Hypertension Unspec 272.4 Hyperlipidemia Other Unspec 414.9 Ischemic Heart Disease Chronic Unspec Office Visit 03/23/2014 2:20p [facility] Yogi Pelayo, 401.9 Hypertension Of Stencil Typist AT [facility], [facility], Unspec FSCAI 272.4 Hyperlipidemia Other Unspec 424.1 Aortic Valve Disorder 414.9 Ischemic Heart Disease Chronic Unspec Office Visit 10/03/2013 3:15p [facility] Yogi Pelayo, 414.9 Ischemic Heart Of Stencil Typist AT [facility], [facility], Disease Chronic FSCAI Unspec 424.1 Aortic Valve Disorder 401.9 Hypertension Unspec 272.4 Hyperlipidemia Other Unspec Office Visit 09/27/2013 12:13p [facility] Yogi Pelayo, 414.9 Ischemic Heart Of [facility], [facility], Disease Chronic FSCAI Unspec Office Visit 09/13/2013 2:30p [facility] Yogi Pelayo, 414.9 Ischemic Heart Of Stencil Typist AT [facility], [facility], Disease Chronic FSCAI Unspec 424.1 Aortic Valve Disorder 401.9 Hypertension Unspec 272.4 Hyperlipidemia Other Unspec Office Visit 08/31/2013 4:00p [facility] Yogi Pelayo 414.9 Ischemic Heart Of Stencil Typist AT [facility], [facility], Disease Chronic FSCAI Unspec 424.1 Aortic Valve Disorder 401.9 Hypertension Unspec 272.4 Hyperlipidemia Other Unspec Office Visit 08/18/2013 3:15p [facility] Yogi Pelayo, 414.9 Ischemic Heart Of Stencil Typist AT [facility], [facility], Disease Chronic FSCAI Unspec 401.9 Hypertension Unspec 272.4 Hyperlipidemia Other Unspec 424.1 Aortic Valve Disorder Office Visit 02/20/2013 9:15a [facility] Yogi Pelayo, 414.9 Ischemic Heart Of Stencil Typist AT [facility], [facility], Disease Chronic FSCAI Unspec 401.9 Hypertension Unspec 272.4 Hyperlipidemia Other Unspec 424.1 Aortic Valve Disorder Office Visit 11/02/2012 3:30p [facility] Yogi Pelayo 414.9 Ischemic Heart Of Stencil Typist AT [facility], [facility], Disease Chronic FSCAI Unspec Office Visit 09/14/2012 4:00p [facility] Yogi Pelayo 414.9 Ischemic Heart Of Stencil Typist AT [facility], [facility], Disease Chronic FSCAI Unspec 401.9 Hypertension Unspec 272.4 Hyperlipidemia Other Unspec Office Visit 08/12/2012 3:30p [facility] Yogi Pelayo 414.9 Ischemic Heart Of Stencil Typist AT [facility], [facility], Disease Chronic FSCAI Unspec 401.9 Hypertension Unspec 424.1 Aortic Valve Disorder Office Visit 07/15/2012 3:00p [facility] Yogi Pelayo, 414.9 Ischemic Heart Of [facility] AT [facility] MDeborah, FACC, Disease Chronic FSCAI Unspec 424.1 Aortic Valve Disorder Office Visit 03/25/2012 3:34p Litzy Vigil 327.23 Obstructive Sleep Disorder [facility] Office Visit 02/19/2012 10:09a Litzy Vigil 786.09 Dyspnea & Disorder [facility] Abnormalities Other 780.79 Malaise And Fatigue Other Office Visit 01/28/2012 8:15a [facility] Yogi Pelayo, 414.9 Ischemic Heart Of [facility] AT [facility] Bhargav, FAC, Disease Chronic FSCAI Unspec 401.9 Hypertension Unspec 272.4 Hyperlipidemia Other Unspec Plan of Treatment Future Appointment(s):07/28/2018 11:40 am - Adrienne Wallace MD at [facility] Internal Aeuwkmwn66/25/2019 9:20 am - Adrienne Wallace MD at [facility] Internal [id number] - Edwin Márquez M.D.,FACPC44.311 Basal cell carcinoma of skin of noseComments:Should see Dr. Marte twice a year at nsahzyrB75.0 Paroxysmal atrial fibrillationComments:Continue to see Dr. Quiroz for follow-up, continue Xarelto to prevent stroke.E11.9 Type 2 diabetes mellitus without complicationsComments:You are meeting goal for blood sugar control. Changes to medications are not indicated. A yearly nutrition visit is available to all diabetics. You are on a moderate-potency statin to prevent new orrecurrent heart disease, which is common in diabetics.Follow up:3 months, 20 minRecommendations:See your marine electrician apprentice every year. It is OK to go every 2 years if he finds no retinal damage from diabetes. Ask your marine electrician apprentice to communicate his/her findings to us. See a otr company truck driver every 6months if you have numbness in your feet or a history of foot ulcers.H25.22 Age-related cataract, morgagnian type, left eyeComments:Should see Dr. Joseph for cataract extraction and diabetic eye examReferral:Graham Joseph MD, Ophthalmology Goals 07/08/2018 - Edwin Márquez M.D.,FACPE11.9 Type 2 diabetes mellitus without complicationsGoal Hemoglobin A1c is less than 7.0% in ages 18-74 Goal Hemoglobin A1c is between 7.0% and 8.0% in age over 75 Goal Blood pressure is less than 130/85. Cholesterol should be lowered by a high or moderate-dose statin.
--- OUTSIDE RECORDS SUMMARY | 2018-08-12 18:45 | XMS REPORT | Continuity of Care Document ---
:1935 External Reference #:[id number] Author Name Mariajose Mancilla Care Team Providers Name Role Phone Edwin Márquez MD Primary Care Physician Unavailable Payers Date Identification Numbers Payment Provider Subscriber Effective: 2000 Policy Number: [id number] Medicare Dennys Prado PayID: [id number] [address] [place] [address] Policy Number: [id number] [facility] Dennys Prado PayID: [id number] [address] [address] [place] [address] Advance Directives Type Date Description Status Comment Other Directive 12/03/2010 Health Care Proxy Current and Verified Problems Active Problems Provider Date Chronic ischemic heart disease Yogi Pelayo M.D., [facility] Onset: 2013 Essential hypertension Yogi Pelayo M.D., [facility] 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/2013 Hyperlipidemia Yogi Pelayo M.D., [facility] 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/2013 Aortic valve disorder Yogi Pelayo M.D., [facility] 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/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 Localized, primary osteoarthritis Cain Watson MD Onset: 02/18/2015 Heart valve replacement Yogi Pelayo M.D., [facility] Onset: 12/18/2015 Coronary arteriosclerosis Yogi Pelayo M.D., [facility] Onset: 01/25/2017 Note: stented x8 Type 2 diabetes mellitus Edwin Márquez M.D.,[facility] Onset: 02/17/2017 Hemorrhagic cystitis Edwin Márquez M.D.,FACP [...] Use Denies Drug Use Smoking Status Reviewed: 07/28/18 Patient is a former smoker quit 1968 [...] I10 Mikhail SAlex 11/02/2012 ER a day Brar, DO FACC 100mg Tablets ER 24HR Xarelto 1 by mouth every 90tabs Edwin Girard 15mg Tablets day On Hold Bhargav Márquez,FACGerald Glipizide ER 1 by mouth daily 90tabs [...] 1 tab every other Unknown Chromium day [id number] Capsules Aspirin 1 po qod Unknown 81mg Tablets Elmiron take one capsule by 90caps Nela Glover 100mg mouth 1x a day Bhargav [...] once Edwin Girard 02/17/2017 - daily Bhargav Márquez,[facility] 02/17/2017 500mg Tablets ER 24HR Nitrostat 1 tab sublingual 25tabs Yogi Pelayo, 08/18/2013 - 0.4mg Tablets as needed every 5 M.D., [facility], 07/08/2018 Sub mins x 3 [facility] Losartan 1 po qd 90tabs Yogi Pelayo, 02/20/2013 - Potassium/Hydrochlorot M.Shaji, [facility], 08/14/2013 hiazide [facility] 100-12.5mg Tablets Clopidogrel 1 po qd 30tabs Yogi Pelayo, 02/20/2013 - 75mg Tablets M.D., [facility], 08/22/2013 [facility] Metoprolol Succinate 1 po in am 1/2 in 150tabs Yogi Pelayo, 10/25/2012 - ER pm M.D., [facility], 11/02/2012 100mg Tablets ER 24HR [facility] Isosorbide Mononitrate 1 po qd 90tabs Yogi Pelayo, 10/25/2012 - ER M.D., [facility], 08/14/2013 60mg Tablets ER 24HR [facility] Metoprolol Succinate 1 po qd 30tabs Yogi Pelayo, 09/14/2012 - ER M.D., [facility], 10/25/2012 100mg Tablets ER 24HR [facility] Metoprolol Succinate 1 and 1/2 tab by 45tabs Yogi Pelayo, 08/12/2012 - ER mouth once a day M.D., [facility], 09/14/2012 50mg Tablets ER 24HR [facility] Clobetasol Propionate Jennifer Marte, - MD 07/08/2018 0.05% Solution Fluorouracil Jennifer Marte, - 5% Cream 07/08/2018 Sulfamethoxazole/Trime Unknown - thoprim DS 01/19/2018 800-160mg Tablets Phenazopyridine HCL Unknown - 100mg 01/19/2018 Tablets Losartan Potassium 2 tabs by mouth 30tabs Edwin Cai. - 25mg every day Bhargav Márquez,[facility] 09/02/2017 Tablets Metformin HCL ER 1 by [...] Yogi Pelayo, - 20mg Tablets day Bhargav, [facility], 10/03/2013 [facility] Medications Administered in Office Medication SIG Qnty Indications Ordering Provider Date Triamcinolone (Kenalog) Cain Watson MD 02/18/2015 Injection Inj, Regadenoson, 0.1 MG Arabella Mcgee M.D. 08/15/2013 Injection Technetium TC 99M Arabella Mcgee M.D. 08/15/2013 Tetrofosmin, Per Unit Dose Up To 40 Millicuries Injection Technetium TC 99M Yogi Pelayo M.D., [facility], 10/25/2012 Tetrofosmin, Per Unit Dose Up [facility] To 40 Millicuries Injection Immunizations CPT Code Status Date Vaccine Lot # [id number] Given 01/19/2018 Influenza Virus Vaccine, Quadrivalent, Split, [id number] Preservative Free 93739 Given 02/17/2017 Influenza Virus Vaccine, Quadrivalent, Split, [id number] Preservative Free 17733 Given 02/17/2017 Pneumococcal Conjugate Vaccine 13 Valent For [id number] Intramuscular Use 32116 Given 01/10/2014 Influenza Virus 3Yrs & Over 54618 Given 08/19/2010 Zoster (Zostavax) 33403 Given 03/25/2009 Pneumonia Vaccine Vital Signs Date Vital Result Comment 07/28/2018 11:36am Height 72 inches 6'0" Weight [...] H/L Range Note CBC No Diff 07/29/2018 [facility] White Blood 7.8 10^3/uL N 3.5-10.[address] [place] [address] [phone] Red Blood Count 3.87 10^6/uL Low 4.18-5.48 Hemoglobin 11.1 g/dL Low 14.0-18.0 Hematocrit 34 % Low 36-46 Mean Corpuscular Volume 89 fL N 80-94 Mean Corpuscular Hemoglobin 29 pg N 27-31 Mean Corpuscular HGB Conc 32 g/dL N 31-36 Red Cell Distribution Width 16 % High 10.5-15 Platelet Count 276 10^3/uL N 150-450 Mean Platelet Volume 8.0 fL N 7.4-10.4 Stool Occult 07/16/2018 [facility] Stool Occult SEE RESULT 1 Blood, Screen [address] Blood, [place] [address] [phone] CBC Auto Diff 07/16/2018 [facility] White Blood 8.3 10^3/uL N 3.5-10. [address] Count 8 [place] [address] [phone] Red Blood Count 4.13 10^6/uL Low 4.18-5.48 [...] Cells % 0 Comp Metabolic Panel 07/16/2018 [facility] Sodium 137 mmol/L N 135-[address] [place] [address] [phone] Potassium 4.9 mmol/L N 3.5-5.0 Chloride 105 [...] >60 Egfr 82.5 >60 2 Inr/Protime 07/16/2018 [facility] Inr 0.98 N 0.77-1.[address] [place] [address] [phone] Laboratory test 07/16/2018 [facility] Partial 31.0 seconds N 26.0-36.[address] [place] [address] PTT [phone] Type & Screen 07/16/2018 [facility] Patient O Positive [address] [place] [address] [phone] Antibody Screen NEGATIVE Laboratory test 07/16/2018 [facility] Magnesium 1.9 mg/dL N 1.9-2.[address] [place], [place] [phone] Stool Occult 07/16/2018 [facility] Stool Occult SEE RESULT 3 Blood, Screen [address] Blood, Screen BELOW [place], [place] [id number] [phone] Laboratory test 07/08/2018 [facility] [facility] [employer] [facility] Hemoglobin A1c 6.7 5-7 finding Ua Routine 12/28/2017 [facility] [facility] [employer] [facility] House Ua Specific 1.105 [place] Ua PH 5 Ua Color dark yellow Ua Appera cloudy Ua WBC large Ua Protein 100 Ua Glucose 250 Ua Ketones neg Ua Bilirubin neg Ua Urobilinogen neg Ua Nitrite neg Ua Occult Blood large Urine Culture And 12/28/2017 [facility] Urine SEE RESULT 4 , [address] Culture BELOW [place], [place] [phone] Laboratory test 12/01/2017 [facility] Surgical SEE RESULT 6 , [address] [place] [address] [phone] Urine Culture And 11/21/2017 [facility] Urine SEE RESULT 8 , [address] Culture BELOW [place], [place] [address] [phone] Poc Urinalysis 11/21/2017 [facility] Poc Glucose, Negative Negative [address] Urine [place], [place] [phone] Poc Bilirubin, Urine 1+ Abnormal Negative Poc Ketone, Urine Trace Abnormal Negative Poc Specific [place], Urine 1.020 N 1.010-1.030 Poc Blood, Urine 3+ Abnormal Negative Poc pH, Urine 7.0 N 5-9 Poc Protein, Urine 3+ Abnormal Negative Poc Urobilinogen, Urine 0.2 Negative Poc Nitrite, Urine Negative Negative Poc Leukocytes, Urine 3+ Abnormal Negative Poc Color, Urine Dark yellow Poc Clarity, Urine Turbid 10 Laboratory test 11/21/2017 [facility] Point of Care 241 mg/dL High 70-100 [address] Glucose [place], [place] [address] [phone] Laboratory test 11/18/2017 [facility] Hemoglobin A1c 7.6 % High 4.0-5.6 [address] (Glyco HGB) [place] [address] [phone] PSA Diagnostic 0.357 ng/mL N 0-4.000 13 Basic Metabolic Panel 11/18/2017 [facility] Sodium 138 mmol/L N 135-145 [address] [place] [address] [phone] Potassium 4.5 mmol/L N 3.5-5.0 Chloride 103 mmol/L N 101-111 Co2 Carbon Dioxide 27 mmol/L N 22-32 Anion Gap 8 mmol/L N 2-11 Glucose 176 mg/dL High 70-100 Blood Urea Nitrogen 20 mg/dL N 6-24 Creatinine 1.10 mg/dL N 0.67-1.17 BUN/Creatinine Ratio 18.2 N 8-20 Calcium 9.1 mg/dL N 8.6-10.3 Egfr Non- 64.1 >60 Egfr 77.5 >60 14 Lipid Profile 09/30/2017 [facility] Triglycerides 161 mg/dL 15, 16 (Trig/Chol/HDL) [address] [place] [address] [phone] Cholesterol 155 mg/dL 17 HDL Cholesterol 29.5 mg/dL 18 LDL Cholesterol 93 mg/dL 19 Laboratory test 09/08/2017 [facility] [facility] [employer] [facility] Hemoglobin A1c 7.5 High 5-7 finding Laboratory test 09/01/2017 [facility] Magnesium 1.6 mg/dL Low 1.9-2.7 finding [address] [place] [address] [phone] Lactic Acid 1.6 mmol/L N 0.5-2.0 20 CBC Auto 09/01/2017 [facility] White Blood 11.2 10^3/uL High 3.5-10.[address] [place] [address] [phone] Red Blood Count 4.55 10^6/uL N 4.0-5.4 [...] Red Blood Cells % 0 Inr/Protime 09/01/2017 [facility] Inr 0.93 N 0.77-1.[address] [place] [address] [phone] Laboratory test 09/01/2017 [facility] Partial 26.8 N 26.0- 36.[address] [address] PTT [phone] Comp Metabolic 09/01/2017 [facility] Sodium 133 mmol/L Low 139 -[address] [place] [address] [phone] Potassium 5.0 mmol/L N 3.5-5.0 Chloride 100 [...] Egfr 84.2 >60 21 Lipid Profile 09/01/2017 [facility] Triglycerides 122 mg/dL 22 (Trig/Chol/HDL) [address] [place] [address] [phone] Cholesterol 159 mg/dL 23 HDL Cholesterol 32.6 mg/dL 24 LDL Cholesterol 102 mg/dL 25 Laboratory test 09/01/2017 [facility] Troponin-I (TnI) 0.03 ng/ mL <0.[address] [place] [address] [phone] Type & Screen 09/01/2017 [facility] Patient Blood O Positive [address] [place] [address] [phone] Antibody Screen NEGATIVE Laboratory test 09/01/2017 [facility] C Reactive 10.06 High < 5.[address] Protein mg/[place] [address] [phone] Laboratory test 09/01/2017 [facility] Point of 245 High 70- 100 [address] Care mg/[place] [address] [phone] Urine Culture 08/28/2017 [facility] Urine SEE 28, And [address] Culture RESULT 29 [place] [address] BELOW [phone] Poc Urinalysis 08/28/2017 [facility] Poc Trace Abnormal Negative [address] Glucose, [place] [address] Urine [phone] Poc Bilirubin, Urine Negative Negative Poc Ketone, Urine Negative Negative Poc Specific [place], Urine 1.020 N 1.010-1.030 Poc Blood, Urine 3+ Abnormal Negative Poc pH, Urine 5.0 N 5-9 Poc Protein, Urine 2+ Abnormal Negative Poc Urobilinogen, Urine 0.2 Negative Poc Nitrite, Urine Positive Abnormal Negative Poc Leukocytes, Urine 1+ Abnormal Negative Poc Color, Urine Yellow Poc Clarity, Urine Cloudy 30 Urine Microalbumin 07/10/2017 [facility] Ur Microalbumin 87.6 mg /L Random [address] (mg/L) [place], [place] [phone] Urine Creatinine 115.44 mg/dL Urine Microalbumin/Creatinine 75.8 ug/mg High <31 Comp Metabolic Panel 07/09/2017 [facility] Sodium 139 mmol/L N 139-[address] [place] [address] [phone] Potassium 4.6 mmol/L N 3.5-5.0 Chloride 103 [...] Egfr 84.2 >60 31 Lipid Profile 07/09/2017 [facility] Triglycerides 172 mg/dL 32 (Trig/Chol/HDL) [address] [place], [place] [address] [phone] Cholesterol 147 mg/dL 33 HDL Cholesterol 27.6 mg/dL 34 LDL Cholesterol 85 mg/dL 35 Laboratory test 07/09/2017 [facility] Hemoglobin A1c 7.6 % High 4.0-5.[address] (Glyco HGB) [place] [address] [phone] Laboratory test 01/25/2017 [facility] Alt 26 U/L N 7-[address] [place], [place] [address] [phone] Ast (Sgot) 23 U/L N 13-39 38 Lipid Profile 01/25/2017 [facility] Triglycerides 193 mg/dL N 39 (Trig/Chol/HDL) [address] [place] [address] [phone] Cholesterol 158 mg/dL N 40 HDL Cholesterol 33.8 mg/dL N 41 LDL Cholesterol 86 mg/dL N 42 CBC Auto Diff 08/14/2016 [facility] White Blood 8.3 10^3/uL N 3.5-10.[address] [place] [address] [phone] Red Blood Count 4.55 10^6/uL N 4.0-5.4 [...] % 0 N Comp Metabolic Panel 08/14/2016 [facility] Sodium 137 mmol/L N 133-145 [address] [place] [address] [phone] Potassium 4.6 mmol/L N 3.5-5.0 Chloride 104 [...] 94.4 N >60 43 Lipid Profile 08/14/2016 [facility] Triglycerides 168 mg/dL N 44 (Trig/Chol/HDL) [address] [place] [address] [phone] Cholesterol 167 mg/dL N 45 HDL Cholesterol 33.3 mg/dL N 46 LDL Cholesterol 100 mg/dL N 47 Laboratory test 08/14/2016 [facility] Hemoglobin A1c 6.9 % High Less than [address] (Glyco HGB) 6.0 [place] [address] [phone] Laboratory test 02/18/2016 [facility] Hemoglobin A1c 6.3 % High Less than [address] (Glyco HGB) 6.0 [place] [address] [phone] CBC Auto Diff 08/26/2015 [facility] White Blood 8.5 N 3.5- 10.[address] Count 10^3/[place] [address] [phone] Red Blood Count 4.56 10^6/uL N 4.0-5.4 [...] % 0 N Comp Metabolic Panel 08/26/2015 [facility] Sodium 138 mmol/L N 133-[address] [place] [address] [phone] Potassium 4.3 mmol/L N 3.5-5.0 Chloride 104 [...] 93.5 N >60 50 Lipid Profile 08/26/2015 [facility] Triglycerides 178 mg/dL N 51 (Trig/Chol/HDL) [address] [place] [address] [phone] Cholesterol 134 mg/dL N 52 HDL Cholesterol 29.2 mg/dL N 53 LDL Cholesterol 69 mg/dL N 54 Laboratory test 08/26/2015 [facility] Hemoglobin A1c 6.2 % High Less [address] (Glyco HGB) than 6.0 [place] [address] [phone] Pre Cath Panel 09/04/2014 [facility] Partial 32.2 N 26.0-36. [address] Thrombo Time seconds 3 [place] [address] PTT [phone] CBC Auto Diff 09/04/2014 [facility] White Blood 8.8 10^3/uL N 4.8-10.[address] [place] [address] [phone] Red Blood Count 4.23 10^6/uL N 4.0-5.4 [...] Blood Cells % 0 N Inr/Protime 09/04/2014 [facility] Inr 0.96 N 0.78-1.07 [address] [place] [address] [phone] Basic Metabolic 09/04/2014 [facility] Sodium 138 mmol/L N 133- 145 Panel [address] [place] [address] [phone] Potassium 4.8 mmol/L N 3.5-5.0 Chloride 104 [...] N >60 56 CBC Auto Diff 08/17/2014 [facility] White Blood 8.0 10^3/uL N 4.8-10.8 57 [address] [facility] [place] [address] [phone] Red Blood Count 4.28 10^6/uL N 4.0-5.4 [...] Cells % 0.1 N Laboratory test 08/17/2014 [facility] Hemoglobin A1c 6.2 % High Less than [address] 6[address] [place] [address] [phone] Comp Metabolic 08/17/2014 [facility] Sodium 137 N 133-[address] mmol/[place] [address] [phone] Potassium 4.2 mmol/L N 3.5-5.0 Chloride 102 [...] 85.7 N >60 59 Lipid Profile 08/17/2014 [facility] Triglycerides 124 mg/dL N 60 (Trig/Chol/HDL) [address] [place] [address] [phone] Cholesterol 147 mg/dL N 61 HDL Cholesterol 29.7 mg/dL N 62 LDL Cholesterol 93 mg/dL N 63 Laboratory test 08/17/2014 [facility] PSA Diagnostic 0.232 N 0 -4.0 [address] ng/[place] [address] [phone] Comp Metabolic 03/07/2014 [facility] Sodium 136 mmol/L N 133- [address] [place] [address] [phone] Potassium 3.9 mmol/L N 3.5-5.0 65 Chloride [...] 89.8 N >60 66 Lipid Profile 03/07/2014 [facility] Triglycerides 127 mg/dL N 67 (Trig/Chol/HDL) [address] [place] [address] [phone] Cholesterol 130 mg/dL N 68 HDL Cholesterol 29.0 mg/dL N 69 LDL Cholesterol 76 mg/dL N 70 Laboratory test 03/07/2014 [facility] Hemoglobin A1c 6.6 % High Less than [address] [place] [address] [phone] Basic Metabolic 09/28/2013 [facility] Sodium 135 N 133-145 Panel 101 mmol/[place] [address] [phone] Potassium 4.7 mmol/L N 3.7-5.6 Chloride 102 [...] N >60 72 Basic Metabolic Panel 09/22/2013 [facility] Sodium 138 mmol/L N 133-145 [address] [place] [address] [phone] Potassium 4.0 mmol/L N 3.7-5.6 Chloride 104 mmol/L N 101-111 Co2 Carbon Dioxide 27 mmol/L N 22-32 Anion Gap 7 mmol/L N 2-11 Glucose 107 mg/dL High 70-100 Blood Urea Nitrogen 26 mg/dL High 6-24 Creatinine 1.08 mg/dL N 0.67-1.17 BUN/Creatinine Ratio 24.1 High 8-20 Calcium 9.2 mg/dL N 8.6-10.3 Egfr Non- 66.1 N >60 Egfr 85.0 N >60 73 Inr/Protime 09/22/2013 [facility] Inr 0.92 N 0.85-1.06 [address] [place] [address] [phone] CBC Auto Diff 09/22/2013 [facility] White Blood 8.5 10^3/uL N 4.8-10.[address] [place] [address] [phone] Red Blood Count 4.30 10^6/uL N 4.0-5.4 [...] Cells % 0 N Cath Panel 09/22/2013 [facility] Activated 30.5 seconds N 24.0 -36.[address] [place] [address] Thrombo Time [phone] Basic Metabolic 09/09/2013 [facility] Sodium 136 mmol/L N 133- [address] [place] [address] [phone] Potassium 4.3 mmol/L N 3.7-5.6 Chloride 104 [...] N >60 74 CBC No Diff 09/06/2013 [facility] White Blood 7.0 10^3/uL N 4.8-10.8 [address] [facility] [place] [address] [phone] Red Blood Count 4.34 10^6/uL N 4.0-5.4 [...] um3 N 7.4-10.4 Basic Metabolic Panel 09/06/2013 [facility] Sodium 137 mmol/L N 133-[address] [place] [address] [phone] Potassium 4.6 mmol/L N 3.7-5.6 Chloride 104 mmol/L N 101-111 Co2 Carbon Dioxide 28 mmol/L N 22-32 Anion Gap 5 mmol/L N 2-11 Glucose 153 mg/dL High 70-100 Blood Urea Nitrogen 23 mg/dL N 6-24 Creatinine 1.13 mg/dL N 0.67-1.17 BUN/Creatinine Ratio 20.4 High 8-20 Calcium 8.9 mg/dL N 8.6-10.3 Egfr Non- 62.8 N >60 Egfr 80.7 N >60 75 Inr/Protime 09/06/2013 [facility] Inr 0.91 N 0.85-1.[address] [place] [address] [phone] Laboratory test 09/06/2013 [facility] Activated 30.4 N 24.0- 36.[address] [place] [address] [place] [address] Time [phone] Lipid Profile 08/24/2013 [facility] Triglycerides 128 mg/dL N 76 (Trig/Chol/HDL) [address] [place] [address] [phone] Cholesterol 130 mg/dL N 77 HDL Cholesterol 28.4 mg/dL N 78 LDL Cholesterol 76 mg/dL N 79 Order 08/15/2013 [facility] [facility] [employer] [facility] In-House Stress Test, <pending> Exercise Nuclear Comp Metabolic 03/06/2013 [facility] Sodium 138 mmol/L 133- 145 Panel [address] [place] [address] [phone] Potassium 4.3 mmol/L 3.5-5.0 Chloride 104 mmol/L [...] Egfr 93.2 >60 80 Laboratory test 03/06/2013 [facility] Hemoglobin A1c 5.7 % Less than 81 finding [address] [facility] [address] [place] [address] [phone] Lipid Profile 12/13/2012 [facility] Triglycerides 141 mg/dL 40-200 (Trig/Chol/HDL) [address] [place] [address] [phone] Cholesterol 140 mg/dL Less than 200 HDL Cholesterol 30 mg/dL Low 40-60 82 Cholesterol/HDL Ratio 4.7 Average High 1-4.44 LDL Cholesterol 81.8 Less Than 100 83 Laboratory test 12/13/2012 [facility] Ast 20 U/L 12-42 84 finding [address] [place] [address] [phone] Basic Metabolic Panel 08/08/2012 [facility] Sodium 138 mmol/L 133-145 [address] [place] [address] [phone] Potassium 4.2 mmol/L 3.5-5.0 Chloride 105 mmol/L 101-111 Co2 Carbon Dioxide 28.0 mmol/L 22-32 Anion Gap 5.0 mmol/L 2-11 Glucose 115 mg/dL High 70-100 Blood Urea Nitrogen 14 mg/dL 6-24 Creatinine 1.00 mg/dL 0.50-1.40 BUN/Creatinine Ratio 14.0 8-20 Calcium 9.0 mg/dL 8.1-9.9 Egfr Non- 72.5 >60 Egfr 93.2 >60 85 CBC No Diff 08/01/2012 [facility] White Blood 7.9 10^3/uL 4.8 -10.[address] [place] [address] [phone] Red Blood Count 4.28 10^6/uL 4.0-5.4 Hemoglobin 13.5 g/dL Low 14.0-18.0 Hematocrit 40 % Low 42-52 Mean Corpuscular Volume 92 fL 80-94 Mean Corpuscular Hemoglobin 32 pg High 27-31 Mean Corpuscular HGB Conc 34 g/dL 31-36 Red Cell Distribution Width 13 % 10.5-15 Platelet Count 200 10^3/uL 150-450 Mean Platelet Volume 8 um3 7.4-10.4 Laboratory test finding 08/01/2012 [facility] Inr 0.90 0.87- 0.97 [address] [place] [address] [phone] Activated Partial Thrombo Time 30.6 seconds 22.18-37.18 Basic Metabolic Panel 08/01/2012 [facility] Sodium 137 mmol/L 133-145 [address] [place] [address] [phone] Potassium 4.1 mmol/L 3.5-5.0 Chloride 106 mmol/L [...] [address]: Juanpablo Norwood MD Acct: [id number] Unit: [id number] AGE: 83 Location: ED Re07/16/18 SEX: M Status: REG ER SPEC: [id number] MARYLU: 07/16/[address] [facility] [address]: Mauro FINN REQ: [id number] RECD: 07/16/18 STATUS: KEVAN LOERA DR: Juanpablo Wallace MD _ SOURCE: STOOL SPDESC: ORDERED: Occult Bl, Scn Procedure Result Reported Site Stool Occult Blood (1) Final 07/16/18- 1902 ML Stool Occult Blood Positive * - [facility] . END OF REPORT DEPARTMENT OF PATHOLOGY, [address] [place] [address] Aubrey Lee M.D. Director [facility] # [id number] 2 Because ethnic data is not always [...] [address]: Juanpablo Norwood MD Acct: [id number] Unit: [id number] AGE: 83 Location: ED Re07/16/18 SEX: M Status: REG ER SPEC: [id number] MARYLU: 07/16/[address] [facility] [address]: Mauro FINN REQ: [id number] RECD: 07/16/18 STATUS: KEVAN LOERA DR: Juanpablo Wallace MD _ SOURCE: STOOL SPDESC: ORDERED: Occult Bl, Scn Procedure Result Reported Site Stool Occult Blood (1) Final 07/16/181717 ML Stool Occult Blood Negative * ML - Main Lab . END OF REPORT DEPARTMENT OF PATHOLOGY, [address] [place] [address] Aubrey Lee M.D. Director [facility] # [id number] SEE RESULT BELOW Name: DENNYS PRADO : [address]: Bimal Torre MD Acct: [id number] Unit: [id number] AGE: 82 Location: [facility] Re12/28/17 SEX: M Status: REG REF SPEC: [id number] MARYLU: 12/28/[address] [facility] [address]: Bimal Torre MD REQ: [id number] RECD: 12/28/17 STATUS: COMP _ SOURCE: URINE SPDESC: ORDERED: Urine Culture COMMENTS: [id number] Urine Source: Random Procedure Result Reported Site Urine Culture Final 12/31/17- 0850 ML Organism 1 KLEBSIELLA PNEUMONIAE Custer Count >100,000 (Many) CFU/ML Organism 2 ENTEROCOCCUS FAECALIS Custer Count 25-50,000 (Moderate) CFU/ML 1. KLEBSIELLA PNEUMONIAE M.I.C. RX --------- ------ Ampicillin R Cefazolin <=4 S Cefepime <=1 S Ceftriaxone <=1 S Ciprofloxacin <=0.25 S Gentamicin <=1 S Levofloxacin <=0.12 S Meropenem <=0.25 S Nitrofurantoin 64 I Tetracycline <=1 S Pipercillin/Tazobactam <=4 S Trimethoprim/Sulfamethoxazole <=20 S Amoxicillin/Clavulanic Acid 4 S Aztreonam <=1 S CONTINUED ON NEXT PAGE DEPARTMENT OF PATHOLOGY, [address] [place] [address] Aubrey Lee M.D. Director [facility] # [id number] Patient: DENNYS PRADO [id number] (Continued) Specimen: [id number] Collected: 12/28/17 Received: 12/28/17 (Continued) Procedure Result [...] These antibiotics are not available in the [facility] Formulary Contact the Microbiology Department for any additional antibiotic reporting. Contact the Microbiology Department for any additional antibiotic reporting. * ML - Main Lab . END OF REPORT DEPARTMENT OF PATHOLOGY, [address] [place] [address] Aubrey Lee M.D. Director [facility] # [id number] 6 1522-A:Morphology: pink papule with small telangiectasias. ;DDX: Basal Cell Carcinoma;Location: 7 SEE RESULT BELOW Name: DENNYS PRADO : [address]: Jennifer Marte MD Acct: [id number] Unit: [id number] AGE: 82 Location: [facility] Re12/01/17 SEX: M Status: REG REF SPEC: [id number] MARYLU: 12/01/[address] [facility] [address]: Jennifer Marte MD REQ: [id number] RECD: 12/01/17 STATUS: OJ LOERA DR: Edwin Márquez MD _ ORDERED: LEVEL 4 COMMENTS: [id number] FINAL DIAGNOSIS Skin, right ala, biopsy: -- Basal cell carcinoma, superficial and nodular type. PRE-OPERATIVE DIAGNOSIS Kelso papule with small telangiectasia, basal cell carcinoma GROSS DESCRIPTION The specimen is received in formalin labeled, Right Ala, and consists of a 0.4 by up to 0.4 cm balderas-white irregular skin shave which is inked, bisected and submitted entirely in one cassette. Signed by and Reported on: Lauryn Robles MD 12/02/17 0839 END OF REPORT DEPARTMENT OF PATHOLOGY, [address] [place] [address] Aubrey Lee M.D. Director [facility] # [id number] SEE RESULT BELOW Name: DENNYS PRADO : [address]: Laurence Ng MD Acct: [id number] Unit: [id number] AGE: 82 Location: [facility] Re11/21/17 SEX: M Status: DEP ER SPEC: [id number] MARYLU: 11/21/17-[address] [facility] [address]: Sandee Gee NP REQ: [id number] RECD: 11/21/17 STATUS: KEVAN LOERA DR: Franc[facility] Edwin Márquez MD _ SOURCE: URINE SPDESC: ORDERED: Urine Culture COMMENTS: [id number] Procedure Result Reported Site Urine Culture Final 11/23/17- 1007 ML Organism 1 KLEBSIELLA PNEUMONIAE Custer Count 25-50,000 (Moderate) CFU/ML Organism 2 NORMAL ALVINA Custer Count 10-25,000 (Moderate) CFU/ML 1. KLEBSIELLA PNEUMONIAE [...] . END OF REPORT DEPARTMENT OF PATHOLOGY, [address] [place] [address] Aubrey Lee M.D. Director [facility] # [id number] Rib Bender: [id number] Rib Bender: [id number] 12 Therapeutic target for the treatment of diabetes mellitus patients is <7% HBA1C, and in selective patients <6.0%. Please refer to [place] [employer] diabetic care guidelines for further information. 13 Serum levels of PSA measured using the Lynda 6sicuro.it DXI Hybritech immunoassay should not be interpreted [...] 130-159 High: 160-189 Very High: >189 20 [place] Severe Sepsis and Septic Shock Management Bundle [...] High: >189 26 Acute inflammation: >10.00 27 Rib Bender: [id number] 29 SEE RESULT BELOW Name: DENNYS PRADO : [address]: Edward Zeng MD Acct: [id number] Unit: [id number] AGE: 82 Location: [facility] Re08/28/17 SEX: M Status: DEP ER SPEC: [id number] MARYLU: 08/28/17-[address]: Yuko Ceron NP REQ: [id number] RECD: 08/29/17-1311 STATUS: KEVAN LOERA DR: Edward Márquez MD _ SOURCE: URINE [facility]: ORDERED: Urine Culture COMMENTS: [id number] Procedure Result Reported Site Urine Culture Final 08/31/17- 0751 ML Organism 1 ESCHERICHIA COLI Custer Count >100,000 (Many) CFU/ML 1. ESCHERICHIA COLI [...] . END OF REPORT DEPARTMENT OF PATHOLOGY, [address] [place] [id number] Aubrey Lee M.D. Director [facility] # [id number] 30 Rib Bender: [id number] 31 Because ethnic data is not always [...] in selective patients <6.0%. Please refer to [place] [employer] diabetic care guidelines for further [...] and in selective patients <6.0%.Please refer to [place] [employer] Diabetic care guidelines for further information. 49 Therapeutic target for the treatment of diabetes Mellitus patients is <7% HBA1C, and in selective patients <6.0%.Please refer to [place] [employer] Diabetic care guidelines for further [...] and in selective patients <6.0%.Please refer to [place] [employer] Diabetic care guidelines for further [...] and in selective patients <6.0%.Please refer to [place] [employer] Diabetic care guidelines for further [...] levels of PSA measured using the Lynda 6sicuro.it DXI Hybritech immunoassay should not be interpreted [...] and in selective patients <6.0%.Please refer to [place] [employer] Diabetic care guidelines for further [...] and in selective patients <6.0%.Please refer to [place] [employer] Diabetic care guidelines for further [...] dialysis) Procedures Date Code Description Status 02/10/2018 91455 EKG Tracing & Interpretation Completed 02/11/2017 603437463 Diabetic Retinal Eye Exam Completed 12/18/2015 15650 EKG Tracing & Interpretation Completed 02/18/2015 98498 Inject/Drain Joint/Bursa Major W/O US Completed 12/11/2014 87422 Holter Monitor Review (24 hr)dr review & interp only Completed 10/17/2014 32403 ECHO Transthorasic Realtime 2D W Doppler & Color Flow Completed Hosp 09/26/2014 51346 EKG Tracing & Interpretation Completed 08/15/2014 16343 EKG Tracing & Interpretation Completed 08/01/2014 00137 ECHO Transthorasic Realtime 2D W Doppler & Color Flow Completed Hosp 03/23/2014 64565 EKG Tracing & Interpretation Completed 10/03/2013 35718 EKG Tracing & Interpretation Completed 09/27/2013 07827 EKG, Interpretation Only Completed 09/26/2013 91410 Percutaneous Transcatheter Placement Of Intracoronary Completed Stent 09/26/2013 85398 Percutaneous Transcatheter Placement Of Intracoronary Completed Stent 09/26/2013 23437 EKG, Interpretation Only Completed 09/26/2013 00709 Percutaneous Transcatheter Placement Of Intracoronary Completed Stent 09/08/2013 48030 RT & lt Cath W/Injx HRT Art&L Ventr Img S&I Completed 09/05/2013 68939 Treadmill Interp/Report Only Completed 09/05/2013 12279 Stress Test Supervsn W/Out I/R Completed 08/30/2013 23999 ECHO Transthorasic Realtime 2D W Doppler & Color Flow Completed Hosp 08/18/2013 26300 EKG Tracing & Interpretation Completed 08/15/2013 75912 Stress Test Completed 08/15/2013 81592 Myocardial Perfusion Imaging Tomographic (Spect) Completed Multiple Studies 02/20/2013 35213 EKG Tracing & Interpretation Completed 10/25/2012 80002 Stress Test Completed 10/25/2012 86763 Myocardial Perfusion Imaging Tomographic (Spect) Completed Multiple Studies 08/12/2012 33998 EKG Tracing & Interpretation Completed 08/05/2012 06179 Left Heart Cath. Incl S/I Coronaries, Angio S/I V Gram Completed If Done 08/05/2012 84904 Percutaneous Transcatheter Placement Of Intracoronary Completed Stent 08/05/2012 26521 Percutaneous Transcatheter Placement Of Intracoronary Completed Stent 07/20/2012 33019 ECHO Transthoracic, Real-Time 2D With Doppler And Completed Color Flow 03/15/2012 78232 Polysomnography Sleep Staging 4+ Parameters Completed 02/07/2002 08342706 Colonoscopy Completed Encounters Type Date Location Provider Dx Diagnosis Office Visit 07/18/2018 [facility] Michael Flynn, K62.5 Hemorrhage of anus 10:17a ny Lozada M.D. 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, morgagnian type, left eye Office Visit 02/10/2018 3:40p [facility] Qutaarmando SAlex I10 Essential Bhargav Quiroz (primary) hypertension 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 E11.9 Type 2 diabetes mellitus without complications I49.1 Atrial premature depolarization Office Visit 01/19/2018 2:40p [facility] Edwin Girard N30.01 Acute cystitis Sarai Márquez M.D.,FACP with hematuria [address] R97.21 Rising PSA fol treatment for malignant neoplasm of prostate Z23 Encounter for immunization Office Visit 12/28/2017 1:00p [facility] Bimal Torre, N39.0 Urinary tract Medicine Kenney Durant infection, site [address] not specified R31.9 Hematuria, unspecified Office Visit 11/26/2017 10:30a [facility] Anna Marie N10 Acute pyelonephritis Medicine Marker, RPA-C Z85.46 Personal history of malignant neoplasm of prostate Office Visit 09/08/2017 8:20a [facility] Renita Randhawa, I10 Essential ( primary) Medicine - [place] [facility] [employer]OCIATE hypertension Rd E11.21 Type 2 diabetes mellitus with diabetic nephropathy R97.21 Rising PSA fol treatment for malignant neoplasm of prostate E78.5 Hyperlipidemia, unspecified Office Visit 09/02/2017 8:57a [facility] Chiqui Stovall, I16.1 Hypertensive Assoc,pc N.P. emergency Hospitalists G93.41 Metabolic encephalopathy N39.0 Urinary tract infection, site not specified E83.42 Hypomagnesemia Office Visit 09/01/2017 [facility] Jessica Talbot I16.1 Hypertensive 8:55a Assoc,pc Sally, [employer]HE[employer] FIL[employer]ENT SPINNER emergency Hospitalists G93.41 Metabolic encephalopathy N39.0 Urinary tract infection, site not specified E83.42 Hypomagnesemia Office Visit 07/14/2017 9:40a [facility] Edwin Girard E11.21 Type 2 diabetes Sarai Márquez M.D.,FACP mellitus with [address] diabetic nephropathy R97.21 Rising PSA fol treatment for malignant neoplasm of prostate I10 Essential (primary) hypertension Office Visit 02/17/2017 9:10a [facility] Edwin Girard E11.9 Type 2 diabetes Sarai Márquez M.D.,FACP mellitus without [address] complications I10 Essential (primary) hypertension R97.21 Rising PSA fol treatment for malignant neoplasm of prostate I25.10 Athscl heart disease of [place] coronary artery w/o ang pctrs Z23 Encounter for immunization Office Visit 01/25/2017 9:00a [facility] Yogi Pelayo, I10 Essential (primary) Of Tape Control Skin Or [employer] Operator AT [facility], hypertension FSCAI 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 knee Office Visit 12/13/2014 [facility] Yogi Pelayo, 424.1 Aortic Valve Disorder 3:40p Cardiology Of Chan.Shaji, FAC, Tape Control Skin Or [employer] Operator AT [facility] FSCAI 401.9 Hypertension Unspec 272.4 Hyperlipidemia Other Unspec Office Visit 11/06/2014 2:20p [facility] Yogi Pelayo, 424.1 Aortic Valve Of T[employer] Or [employer] Operator AT [facility], Disorder FSCAI 401.9 Hypertension Unspec 414.9 Ischemic Heart Disease Chronic Unspec 272.4 Hyperlipidemia Other Unspec Office Visit 09/26/2014 1:20p [facility] Yogi Pelayo, 424.1 Aortic Valve Of T[employer] Or [employer] Operator AT [facility], Disorder FSCAI 401.9 Hypertension Unspec 414.9 Ischemic Heart Disease Chronic Unspec 272.4 Hyperlipidemia Other Unspec Office Visit 08/15/2014 10:00a [facility] Yogi Pelayo, 424.1 Aortic Valve Of Tape Control Skin Or [employer] Operator AT [facility], Disorder FSCAI 401.9 Hypertension Unspec 272.4 Hyperlipidemia Other Unspec 414.9 Ischemic Heart Disease Chronic Unspec Office Visit 03/23/2014 2:20p [facility] Yogi Pelayo, 401.9 Hypertension Of T[employer] Skin Or [employer] Operator AT [facility], Unspec FSCAI 272.4 Hyperlipidemia Other Unspec 424.1 Aortic Valve Disorder 414.9 Ischemic Heart Disease Chronic Unspec Office Visit 10/03/2013 3:15p [facility] Yogi Pelayo 414.9 Ischemic Heart Of T[employer] Skin Or [employer] Operator AT [facility], Disease Chronic FSCAI Unspec 424.1 Aortic Valve Disorder 401.9 Hypertension Unspec 272.4 Hyperlipidemia Other Unspec Office Visit 09/27/2013 12:13p [facility] Yogi Pelayo 414.9 Ischemic Heart Of [facility], [facility], Disease Chronic FSCAI Unspec Office Visit 09/13/2013 2:30p [facility] Yogi Pelayo 414.9 Ischemic Heart Of T[employer] Or [employer] Operator AT [facility], Disease Chronic FSCAI Unspec 424.1 Aortic Valve Disorder 401.9 Hypertension Unspec 272.4 Hyperlipidemia Other Unspec Office Visit 08/31/2013 4:00p [facility] Yogi Pelayo 414.9 Ischemic Heart Of T[employer] Or [employer] Operator AT [facility], Disease Chronic FSCAI Unspec 424.1 Aortic Valve Disorder 401.9 Hypertension Unspec 272.4 Hyperlipidemia Other Unspec Office Visit 08/18/2013 3:15p [facility] Yogi Pelayo 414.9 Ischemic Heart Of T[employer] Operator AT [facility], Disease Chronic FSCAI Unspec 401.9 Hypertension Unspec 272.4 Hyperlipidemia Other Unspec 424.1 Aortic Valve Disorder Office Visit 02/20/2013 9:15a [facility] Yogi Pelayo, 414.9 Ischemic Heart Of T[employer] Or [employer] Operator AT [facility], Disease Chronic FSCAI Unspec 401.9 Hypertension Unspec 272.4 Hyperlipidemia Other Unspec 424.1 Aortic Valve Disorder Office Visit 11/02/2012 3:30p [facility] Yogi Pelayo, 414.9 Ischemic Heart Of T[employer] Or [employer] Operator AT [facility], Disease Chronic FSCAI Unspec Office Visit 09/14/2012 4:00p [facility] Yogi Pelayo 414.9 Ischemic Heart Of T[employer] Or [employer] Operator AT [facility], Disease Chronic FSCAI Unspec 401.9 Hypertension Unspec 272.4 Hyperlipidemia Other Unspec Office Visit 08/12/2012 3:30p [facility] Yogi Pelayo, 414.9 Ischemic Heart Of T[employer] Or [employer] Operator AT [facility], Disease Chronic FSCAI Unspec 401.9 Hypertension Unspec 424.1 Aortic Valve Disorder Office Visit 07/15/2012 3:00p [facility] Yogi Pelayo, 414.9 Ischemic Heart Of T[employer] Skin Or [employer] Operator AT [facility], Disease Chronic FSCAI Unspec 424.1 Aortic Valve Disorder Office Visit 03/25/2012 3:34p Litzy Vigil 327.23 Obstructive Sleep Disorder [facility] Office Visit 02/19/2012 10:09a Litzy Vigil 786.09 Dyspnea & Disorder [facility] Abnormalities Other 780.79 Malaise And Fatigue Other Office Visit 01/28/2012 8:15a [facility] Yogi Pelayo 414.9 Ischemic Heart Of Tape Control Skin Or [employer] Operator AT [facility], Disease Chronic FSCAI Unspec 401.9 Hypertension Unspec 272.4 Hyperlipidemia Other Unspec Plan of Treatment Future Appointment(s):01/27/2019 10:40 am - Adrienne Wallace MD at [facility] Ciupjesa12/25/2019 9:20 am - Adrienne Wallace MD at [facility] [id number] - Adrienne Wallace MDK62.5 Hemorrhage of anus and rectumComments:please go for lab test later today or sgijuhnlS13.91 Unspecified atrial fibrillationComments: Please resume clopidrogel.You are in sinus rhythm [id number] Essential (primary) hypertensionComments:Your high blood pressure is in excellent control on your current management.Follow up:HTN f/u 6 moR31.9 Hematuria, unspecifiedComments: follow up with new Urologist
[2018-08-12 19:49] LABS: ABS Basophils 0.1 10^3/ul (0-0.2); ABS Lymphocytes 1.2 10^3/ul (1.0-4.8); ABS Monocytes 1.1 10^3/ul (0-0.8); ABS Neutrophils 12.4 10^3/ul (1.5-7.7); Eosinophil % 0.2 %; Hematocrit 35 % (42-52); Hemoglobin 11.3 g/dL (14.0-18.0); Lymphocyte % 8.1 %; Mean Corpuscular HGB Conc 33 g/dL (31-36); Mean Corpuscular Hemoglobin 28 pg (27-31); Mean Corpuscular Volume 87 fL (80-94); Mean Platelet Volume 7.6 fL (7.4-10.4); Platelet Count 297 10^3/uL (150-450); Red Blood Count 3.98 10^6 /uL (4.18-5.48); Red Cell Distribution Width 15 % (10.5-15); White Blood Count 14.9 10^3/uL (3.5-10.8)
[2018-08-12 20:11] LABS: Albumin 3.8 g/dL (3.2-5.2); Albumin/Globulin Ratio 1.1 (1-3); BUN/Creatinine Ratio 17.6 (8-20); Calcium 9.4 mg/dL (8.6-10.3); EGFR African American 70.6 (>60); EGFR Non-African American 58.4 (>60); Globulin 3.6 g/dL (2-4); Potassium 4.6 mmol/L (3.5-5.0); Total Bilirubin 0.7 mg/dL (0.2-1.0); Total Protein 7.4 g/dL (6.4-8.9)
[2018-08-12] MEDS ORDERED: Lidocaine 4% GEL* 10 GM TUBE TOPICAL ONE (21:05)
--- NOTE | 2018-08-12 21:08 | ED ---
GI/ HPI - HPI Summary HPI Summary: This patient is a 83 year old male presenting to [facility] accompanied by with a chief complaint of possible bladder infection since 1 week ago. Patient has a long hx of UTI. Patient states that pushing down is uncomfortable. Today, patient additionally started vomiting and exhibiting a fever, prompting visit to the ED. The pain is rated 0/10 in severity. Symptoms aggravated by nothing. Symptoms alleviated by nothing. Patient denies back pain. - History of Current Complaint Chief Complaint: EDUrogenitalProblems Time Seen by Provider: 08/12/18 20:58 Stated Complaint: FEVER/VOMITING PER PT Hx Obtained From: Patient Onset/Duration: Started Days Ago - 7, Still Present Timing: Constant Severity: Mild Pain Intensity: 0 Associated Signs and Symptoms: Positive: Negative - back pain, Other: - vomiting , fever Aggravating Factor(s): Nothing Alleviating Factor(s): Nothing - Additional Pertinent History Primary Care Physician: FREDDY - Allergy/Home Medications Allergies/Adverse Reactions: Allergies Allergy/AdvReac Type Severity Reaction Status Date / Time doxycycline Allergy GI Upset Verified 08/12/18 18:38 sulfamethoxazole Allergy Nausea And Verified 08/12/18 18:38 [From Bactrim] Vomiting trimethoprim [From Bactrim] Allergy Nausea And Verified 08/12/18 18:38 Vomiting PMH/Surg Hx/FS Hx/Imm Hx Previously Healthy: No Endocrine/Hematology History: Reports: Hx Anticoagulant Therapy - ASA, Hx Diabetes - type 2 dm Cardiovascular History: Reports: Hx Coronary Artery Disease, Hx Hypercholesterolemia, Hx Hypertension - recent decrease in meds, Hx Valvular Heart Disease, Other Cardiovascular Problems/Disorders - AFIB with cardioversion in June 2018 Denies: Hx Angina, Hx Myocardial Infarction Respiratory History: Denies: Hx Asthma, Hx Chronic Obstructive Pulmonary Disease (COPD) History: Reports: Other Problems/Disorders - radical prostatectomy 15 yrs ago Sensory History: Reports: Hx Contacts or Glasses Denies: Hx Hearing Aid Opthamlomology History: Reports: Hx Contacts or Glasses Neurological History: Denies: Hx CVA Psychiatric History: Denies: Hx Autism - Cancer History Cancer Type, Location and Year: prostate. skin cancer on nose Hx Radiation Therapy: Yes - Surgical History Surgery Procedure, Year, and Place: prostatectomy with radiation; 09/26/13 cardiac stents and 2 stent 2012 ,aeortic valve replacement, open heart surgery, bypass Hx Anesthesia Reactions: No Infectious Disease History: No Infectious Disease History: Denies: History Other Infectious Disease, Traveled Outside the [place] in Last 30 Days - Family History Known Family History: Negative: Hypertension, Seizure Disorder - Social History Lives: With Family Alcohol Use: None Hx Substance Use: No Substance Use Type: Reports: None Hx Tobacco Use: Yes Smoking Status (MU): Former Smoker Type: Cigarettes Review of Systems Positive: Fever Positive: Vomiting Positive: other - discomfort when pushing down Musculoskeletal: Negative - back pain All Other Systems Reviewed And Are Negative: Yes Physical Exam - Summary Physical Exam Summary: Appearance: Well-appearing, Well-nourished, lying in bed comfortably Skin: Warm, dry, no obvious rash Eyes: sclera anicteric, no conjunctival pallor ENT: mucous membranes moist, pharynx appears normal Neck: Supple, nontender Respiratory: Clear to auscultation, no signs of respiratory distress Cardiovascular: Normal S1, S2. No murmurs. Normal distal pulses in tibial and radial bilaterally. Abdomen: Soft, nontender, normal active bowel sounds present Musculoskeletal: Normal, Strength/ROM Intact Neurological: A&Ox3, awake and alert, mentation is normal, speech is fluent and appropriate Psychiatric: affect is normal, does not appear anxious or depressed Triage Information Reviewed: Yes Vital Signs On Initial Exam: Initial Vitals Temp Pulse Resp BP Pulse Ox 98.7 F 97 18 196/123 97 08/12/18 18:35 08/12/18 18:35 08/12/18 18:35 08/12/18 18:35 08/12/18 18:35 Vital Signs Reviewed: Yes Diagnostics - Vital Signs Vital Signs Temp Pulse Resp BP Pulse Ox 08/12/18 20:21 98 F 85 18 125/61 96 08/12/18 18:35 98.7 F 97 18 196/123 97 - Laboratory Lab Results: Lab Results 08/12/18 08/12/18 Range/Units 19:41 19:41 WBC 14.9 H (3.5-10.8) 10^3/uL RBC 3.98 L (4.18-5.48) 10^6 /uL Hgb 11.3 L (14.0-18.0) g/dL Hct 35 L (42-52) % MCV 87 (80-94) fL MCH 28 (27-31) pg MCHC 33 (31-36) g/dL RDW 15 (10.5-15) % Plt Count 297 (150-450) 10^3/uL MPV 7.6 (7.4-10.4) fL Neut % (Auto) 83.4 % Lymph % (Auto) 8.1 % Cocke % (Auto) 7.5 % Eos % (Auto) 0.2 % Baso % (Auto) 0.8 % Absolute Neuts (auto) 12.4 H (1.5-7.7) 10^3/ul Absolute Lymphs (auto) 1.2 (1.0-4.8) 10^3/ul Absolute Monos (auto) 1.1 H (0-0.8) 10^3/ul Absolute Eos (auto) 0.0 (0-0.6) 10^3/ul Absolute Basos (auto) 0.1 (0-0.2) 10^3/ul Absolute Nucleated RBC 0.0 10^3/ul Nucleated RBC % 0.0 Sodium 136 (135-145) mmol/L Potassium 4.6 (3.5-5.0) mmol/L Chloride 102 (101-111) mmol/L Carbon Dioxide 27 (22-32) mmol/L Anion Gap 7 (2-11) mmol/L BUN 21 (6-24) mg/dL Creatinine 1.19 H (0.67-1.17) mg/dL Est GFR ( Amer) 70.6 (>60) Est GFR (Non-Af Amer) 58.4 (>60) BUN/Creatinine Ratio 17.6 (8-20) Glucose 136 H (70-100) mg/dL Calcium 9.4 (8.6-10.3) mg/dL Total Bilirubin 0.70 (0.2-1.0) mg/dL AST 11 L (13-39) U/L ALT 9 (7-52) U/L Alkaline Phosphatase 87 (34-104) U/L Total Protein 7.4 (6.4-8.9) g/dL Albumin 3.8 (3.2-5.2) g/dL Globulin 3.6 (2-4) g/dL Albumin/Globulin Ratio 1.1 (1-3) Result Diagrams: 08/12/18 19:41 08/12/18 19:41 Lab Statement: Any lab studies that have been ordered have been reviewed, and results considered in the medical decision making process. Re-Evaluation - Re-Evaluation First Eval Re-Evaluation Time: 21:51 Comment: RN unable to pass a catheter, patient is incontinent, thus we are unable to get a useful urinalysis/culture. He will be treated empirically for UTI. Blood cultures were obtained and the patient will be given a dose of rocephin and rx for augmentin. He grew klebsiella that is sensitive to these agents on the last urine culture we have here. GIGU Course/Dx - Course Course Of Treatment: This patient is a 83 year old male presenting to [facility] accompanied by with a chief complaint of possible bladder infection since 1 week ago. Patient has a long hx of UTI. Patient states that pushing down is uncomfortable. Today, patient additionally started vomiting and exhibiting a fever, prompting visit to the ED. Bloodwork Obtained. Urinalysis Obtained. In the ED course the patient was given lidocaine, rocephin. Patient will be discharged with a dx of UTI. Patient is advised to follow up with PCP in 3 days. The patient is agreeable with this plan. - Diagnoses Provider Diagnoses: UTI (urinary tract infection) Discharge - Sign-Out/Discharge Documenting (check all that apply): Patient Departure Patient Received Moderate/Deep Sedation with Procedure: No - Discharge Plan Condition: Good Disposition: HOME Prescriptions: Amoxicillin/Clavulanate TAB* [Augmentin TAB 875*] 875 mg PO BID #14 tab Patient Education Materials: Urinary Tract Infection in Men (ED) Referrals: Adrienne Wallace MD [Primary Care Provider] - 3 Days Additional Instructions: You received a dose of IV antibiotics here that is good for the first 24 hours of treatment, so you will need to start the oral antibiotic Wednesday evening. You should start feeling better over the weekend. If you are getting much worse , we should see you back here. - Billing Disposition and Condition Condition: GOOD Disposition: Home - Attestation Statements Document Initiated by Scribe: Yes Documenting Scribe: Breann Morris Provider For Whom Marybeth is Documenting (Include Credential): Joel Tomas MD Scribe Attestation: Breann Diaz scribed for Joel Tomas MD on 05/04/19 at 0608. Scribe Documentation Reviewed: Yes Provider Attestation: The documentation as recorded by the marybeth, Breann Morris accurately reflects the service I personally performed and the decisions made by me, Joel Tomas MD Status of Marybeth Document: Viewed
[2018-08-12] MEDS ORDERED: cefTRIAXone(*) 1 GM in NS 0.9% 50 ML* 50 ML IVPB ONE (21:11)
[2018-08-12] MEDS ORDERED: Lidocaine 2% JELLY* 6 ML JELLY TOPICAL ONE (21:19)
[2018-08-12 23:11] VITALS: BP 155/76
== END 2018-08-12 23:10 | disposition home or self-care (01) ==
LOC: ED 18:33
DX: N39.0 Urinary tract infection, site not specified (principal); I10 Essential (primary) hypertension; E11.9 Type 2 diabetes mellitus without complications; E78.00 Pure hypercholesterolemia, unspecified; I25.10 Atherosclerotic heart disease of native coronary artery without angina pectoris; Z88.3 Allergy status to other anti-infective agents; Z88.2 Allergy status to sulfonamides; Z79.01 Long term (current) use of anticoagulants; Z85.46 Personal history of malignant neoplasm of prostate; Z85.828 Personal history of other malignant neoplasm of skin; Z87.891 Personal history of nicotine dependence
CPT/HCPCS: 36415; 80053; 85025; 87040; 96365; 99281; J0696

== ENCOUNTER 2018-09-06 13:01 | Emergency (ER) | payer MEDICARE, BC ==
[2018-09-06 14:44] VITALS: BP 00/00
--- NOTE | 2018-09-06 15:55 | UC ---
UC General HPI - HPI Summary HPI Summary: 83-year-old male comes in with a chief complaint of dysuria and chills. Patient also vomited. The symptoms remind him of when he gets the urinary tract infection. Patient's had his prostate removed he's had radiation. He has chronic urinary incontinence. This been having repeated urinary tract infections. Recently no his been able to successfully catheterize him to the change in the anatomy. His last UTI was treated with Keflex 500 mg by mouth 4 times a day for 5 days. Once the patient stopped the antibiotics the symptoms came back the antibiotic sterile helped the symptoms initially. He does get some back pain. No complaint of any anterior abdominal pain. Does not feel lightheaded. He's had chills but no fevers measured. - History of Current Complaint Chief Complaint: UCGU Stated Complaint: INCONTINANCE, AND BACK ACHE Time Seen by Provider: 09/06/18 15:35 Pain Intensity: 2 - Allergy/Home Medications Allergies/Adverse Reactions: Allergies Allergy/AdvReac Type Severity Reaction Status Date / Time doxycycline Allergy GI Upset Verified 09/06/18 14:33 Penicillins Allergy Unknown Verified 09/06/18 14:33 Reaction Details sulfamethoxazole Allergy Nausea And Verified 09/06/18 14:33 [From Bactrim] Vomiting trimethoprim [From Bactrim] Allergy Nausea And Verified 09/06/18 14:33 Vomiting Home Medications: Home Medications Nitrofurantoin Macrocrystal [Nitrofurantoin] 100 mg PO DAILY 09/06/18 [History Confirmed 09/06/18] cephALEXin [Keflex] 500 mg PO DAILY 09/06/18 [History Confirmed 09/06/18] PMH/Surg Hx/FS Hx/Imm Hx Previously Healthy: Yes Endocrine History: Diabetes, Dyslipidemia Cardiovascular History: Hypertension Cancer History: Prostate Cancer Other History Of: Anticoagulant Therapy - ASA - Surgical History Surgical History: Yes Surgery Procedure, Year, and Place: prostatectomy with radiation; 09/26/13 cardiac stents and 2 stent 2012 ,aeortic valve replacement, open heart surgery, bypass - Family History Known Family History: Negative: Hypertension, Seizure Disorder - Social History Alcohol Use: None Substance Use Type: None Smoking Status (MU): Former Smoker Type: Cigarettes When Did the Patient Quit Smoking/Using Tobacco: 40 years ago - Immunization History Most Recent Influenza Vaccination: 2012 Most Recent Tetanus Shot: 2009 Most Recent Pneumonia Vaccination: 2007 Review of Systems All Other Systems Reviewed And Are Negative: Yes Constitutional: Positive: Chills Skin: Positive: Negative Eyes: Positive: Negative ENT: Positive: Negative Respiratory: Positive: Negative Cardiovascular: Positive: Negative Gastrointestinal: Positive: Nausea Genitourinary: Positive: Dysuria, Other - SEE HPI Motor: Positive: Negative Neurovascular: Positive: Negative Musculoskeletal: Positive: Negative Neurological: Positive: Negative Psychological: Positive: Negative Is Patient Immunocompromised?: No Physical Exam Triage Information Reviewed: Yes Appearance: No Pain Distress, Well-Nourished, Ill-Appearing - MILD Vital Signs: Initial Vital Signs Temp 97.5 F 09/06/18 14:27 Pulse 85 09/06/18 14:27 Resp 18 09/06/18 14:27 BP 0009/06/18 14: Pulse Ox 0 09/06/18 14:27 Vital Signs Reviewed: Yes Eye Exam: Normal Eyes: Positive: Conjunctiva Clear Neck: Positive: Supple Respiratory: Positive: Lungs clear, Normal breath sounds, No respiratory distress Cardiovascular: Positive: RRR Abdomen Description: Positive: Nontender, Soft. Negative: CVA Tenderness (R), CVA Tenderness (L) Musculoskeletal Exam: Normal Musculoskeletal: Positive: Strength Intact, ROM Intact Neurological Exam: Normal Neurological: Positive: Alert, Muscle Tone Normal Psychological Exam: Normal Psychological: Positive: Normal Response To Family, Age Appropriate Behavior Skin Exam: Normal Course/Dx - Course Course Of Treatment: Patient had brought in urine from home this was several hours old. Patient was unable to provide a urine sample here as he has chronic incontinence. No he's been able to catheterize him successfully recently. I did send that urine for culture. We'll treat him with the Keflex as that did help in the past. However because he got sick again right after he stopped the Keflex I also prescribed Levaquin to be used if the Keflex is not working. I let the patient and his know to follow-up with her primary care doctor and the urologist before they're done with the antibiotics. Also if his condition worsens he is to go to the emergency department. - Diagnoses Provider Diagnosis: Dysuria, UTI (urinary tract infection) Discharge - Sign-Out/Discharge Documenting (check all that apply): Patient Departure All imaging exams completed and their final reports reviewed: No Studies - Discharge Plan Condition: Stable Disposition: HOME Prescriptions: Cephalexin CAP* [Keflex CAP*] 500 mg PO QID #28 cap Levofloxacin TAB* [Levaquin TAB*] 750 mg PO DAILY #7 tab Ondansetron ODT TAB* [Zofran 4 MG Odt TAB*] 4 mg PO Q6H PRN #10 tab.odt PRN Reason: Nausea Patient Education Materials: Urinary Tract Infection in Men (ED), Dysuria (ED) Referrals: Adrienne Wallace MD [Primary Care Provider] - Kevin Garibay MD [Medical Doctor] - Additional Instructions: FOLLOW UP WITH YOUR PRIMARY CARE DOCTOR AND UROLOGIST. START THE KEFLEX DIRECTED. IF NOT IMPROVING, START THE LEVAQUIN. GO TO THE EMERGENCY DEPARTMENT IF YOUR CONDITION WORSENS; PAIN, FEVER, YOU FEEL ILL OR ANY QUESTIONS OR CONCERNS. - Billing Disposition and Condition Condition: STABLE Disposition: Home
--- NOTE | 2018-09-10 15:31 | UC ---
- Progress Note Progress Note: PLEASE CALL PATIENT. ENSURE HE IS FEELING BETTER. IF SO CONTINUE KEFLEX TO COMPLETE COURSE. IF HE IS STILL SYMPTOMATIC RECOMMEND HE SWITCH TO THE LEVOFLOXACIN THAT HE WAS ALREADY PRESCRIBED. FOLLOW-UP PCP AND UROLOGY. Course/Dx - Diagnoses Provider Diagnoses: Dysuria, UTI (urinary tract infection) Discharge - Sign-Out/Discharge Documenting (check all that apply): Post-Discharge Follow Up All imaging exams completed and their final reports reviewed: No Studies - Discharge Plan Condition: Stable Disposition: HOME Prescriptions: Cephalexin CAP* [Keflex CAP*] 500 mg PO QID #28 cap Levofloxacin TAB* [Levaquin TAB*] 750 mg PO DAILY #7 tab Ondansetron ODT TAB* [Zofran 4 MG Odt TAB*] 4 mg PO Q6H PRN #10 tab.odt PRN Reason: Nausea Patient Education Materials: Urinary Tract Infection in Men (ED), Dysuria (ED) Referrals: Adrienne Wallace MD [Primary Care Provider] - Kevin Garibay MD [Medical Doctor] - Additional Instructions: FOLLOW UP WITH YOUR PRIMARY CARE DOCTOR AND UROLOGIST. START THE KEFLEX DIRECTED. IF NOT IMPROVING, START THE LEVAQUIN. GO TO THE EMERGENCY DEPARTMENT IF YOUR CONDITION WORSENS; PAIN, FEVER, YOU FEEL ILL OR ANY QUESTIONS OR CONCERNS. - Billing Disposition and Condition Condition: STABLE Disposition: Home
== END 2018-09-06 16:17 | disposition home or self-care (01) ==
LOC: UCEAST 13:01
DX: N39.0 Urinary tract infection, site not specified (principal); R30.0 Dysuria; E11.9 Type 2 diabetes mellitus without complications; I10 Essential (primary) hypertension; R11.0 Nausea; Z88.1 Allergy status to other antibiotic agents; Z88.0 Allergy status to penicillin; Z87.891 Personal history of nicotine dependence
CPT/HCPCS: 87077; 87086; 87186; 99212; G0463

== ENCOUNTER 2018-12-26 20:00 | Emergency (ER) | payer MEDICARE, BC ==
--- NOTE | 2018-12-26 20:39 | UC ---
Complaint Male HPI - HPI Summary HPI Summary: 83 yo male presents with catheter issues. He tells me that he has a history of urinary retention and has a love catheter placed every 4-6 weeks. He had it replaced today at Dr. Morfin's office around 0830 this morning. It was draining well until around 1300 when it stopped draining. He has had no output since that time. He denies fever, chills, abdominal pain, pain in penis or testicles. His blood pressure was noted to be very elevated at triage. He states he has no hx of HTN. He is not having any headaches, dizziness, weakness, numbness, SOB, chest pain, palpitations, nausea or vomiting. - History of Current Complaint Chief Complaint: UCGU Stated Complaint: U. CATHETER ISSUE Time Seen by Provider: 12/26/18 20:19 Hx Obtained From: Patient Onset/Duration: Sudden Onset Severity Initially: Moderate Severity Currently: Moderate Pain Intensity: 6 Pain Scale Used: 0-10 Numeric - Allergies/Home Medications Allergies/Adverse Reactions: Allergies Allergy/AdvReac Type Severity Reaction Status Date / Time doxycycline Allergy GI Upset Verified 12/26/18 21:24 Penicillins Allergy Unknown Verified 12/26/18 21:24 Reaction Details sulfamethoxazole Allergy Nausea And Verified 12/26/18 21:24 [From Bactrim] Vomiting trimethoprim [From Bactrim] Allergy Nausea And Verified 12/26/18 21:24 Vomiting Home Medications: Home Medications Clopidogrel TAB* [Plavix TAB*] 75 mg PO DAILY 12/26/18 [History Confirmed ] Pentosan Polysulfate Sod (NF) [Elmiron (NF)] 100 mg PO DAILY WITH MEAL 12/26/18 [History Confirmed 12/26/18] cephALEXin [Keflex] 500 mg PO DAILY 12/26/18 [History Confirmed 12/26/18] PMH/Surg Hx/FS Hx/Imm Hx Endocrine History: Diabetes, Dyslipidemia Cardiovascular History: Cardiac Disease Other History Of: Anticoagulant Therapy - ASA - Surgical History Surgical History: Yes Surgery Procedure, Year, and Place: prostatectomy with radiation; 09/26/13 cardiac stents and 2 stent 2012 ,aeortic valve replacement, open heart surgery, bypass - Family History Known Family History: Negative: Hypertension, Seizure Disorder - Social History Alcohol Use: None Substance Use Type: None Smoking Status (MU): Former Smoker Type: Cigarettes When Did the Patient Quit Smoking/Using Tobacco: 40 years ago - Immunization History Most Recent Influenza Vaccination: 2012 Most Recent Tetanus Shot: 2009 Most Recent Pneumonia Vaccination: 2007 Review of Systems All Other Systems Reviewed And Are Negative: No Constitutional: Positive: Negative Skin: Positive: Negative Eyes: Positive: Negative ENT: Positive: Negative Respiratory: Positive: Negative Cardiovascular: Positive: Negative Gastrointestinal: Positive: Negative Genitourinary: Positive: Other - No urine output of catheter Motor: Positive: Negative Neurovascular: Positive: Negative Neurological: Positive: Negative Psychological: Positive: Negative Physical Exam - Summary Physical Exam Summary: GENERAL: NAD. WDWN. No pain distress. SKIN: No rashes, sores, ulcers, masses, lesions. HEENT: Head: AT/NC. Eyes: PERRLA. EOM intact. NECK: Supple. Nontender. FROM CHEST: CTAB. No r/r/w. No accessory muscle use. Breathing comfortably and in no distress. CV: RRR. Pulses intact. Brisk cap refill. ABDOMEN: Soft. Mild tenderness over bladder. Bowel sounds present MSK: FROM in B/L UEs and LEs with symmetric strength. NEURO: A&Ox3. 3 word recall, remote, recent memory, ability to follow 2-step directions, and attention intact. CN: II: Peripheral ivy intact. Vision normal. III, IV, : EOMI. No nystagmus. PERRLA. V: Sensations intact and symmetric. Opens mouth and clenches teeth. VII: No facial asymmetry. Forehead wrinkles. Grins, shuts eyes, frowns, puffs cheeks. VIII: Hearing intact to finger rub. IX, X: Swallows and coughs. Uvula midline. XI: Shrugs shoulders. Turns head against resistance. XII: No tongue deviation Youodb-di-bkes are intact. Gait with normal base. Romberg: maintains balance, no pronator drift. Normal speech. No facial drooping. PSYCH: Age appropriate behavior. Triage Information Reviewed: Yes Vital Signs: Initial Vital Signs Temp 97.5 F 12/26/18 20:09 Pulse 84 12/26/18 20:09 Resp 19 12/26/18 20:09 BP 226/100 12/26/18 20:09 Pulse Ox 98 12/26/18 20:09 Vital Signs Reviewed: Yes Complaint Male Course/Dx - Course Course Of Treatment: We do not have the proper equipment at urgent care to change or irrigate pt's catheter. His BP could be elevated due to his distended bladder and discomfort related to this, but given his extremely elevated BP, although asymptomatic, and need for catheter change - I recommended he go to the ER for further eval. He was agreeable to this and his will drive him. - Differential Dx/Diagnosis Provider Diagnosis: Love catheter in place, Elevated blood pressure reading Discharge ED - Sign-Out/Discharge Documenting (check all that apply): Patient Departure All imaging exams completed and their final reports reviewed: No Studies - Discharge Plan Condition: Stable Disposition: HOME-RECOMMEND TO ED Referrals: Adrienne Wallace MD [Primary Care Provider] - Additional Instructions: Please go to the ER for further evaluation of your very high blood pressure. Failure to do so with blood pressure at this range could result in stroke, cardiac/heart problems, and/or - Billing Disposition and Condition Condition: STABLE Disposition: Home-Recommend to ED - Attestation Statements Provider Attestation: Per institutional requirements, I have reviewed the chart, however, I was not consulted specifically or made aware of this patient by the midlevel provider. I did not personally evaluate, interact with , or disposition this patient.
[2018-12-26 20:43] VITALS: BP 224/92
== END 2018-12-26 21:00 | disposition home health service (06) ==
LOC: UCEAST 20:00
DX: R33.9 Retention of urine, unspecified (principal); R03.0 Elevated blood-pressure reading, without diagnosis of hypertension; E11.9 Type 2 diabetes mellitus without complications; E78.5 Hyperlipidemia, unspecified; Z79.82 Long term (current) use of aspirin; Z87.891 Personal history of nicotine dependence; Z88.0 Allergy status to penicillin; Z88.2 Allergy status to sulfonamides
CPT/HCPCS: 99212; G0463

== ENCOUNTER 2018-12-26 21:21 | Emergency (ER) | payer MEDICARE, BC ==
--- NOTE | 2018-12-26 22:04 | ED ---
GI/ HPI - HPI Summary HPI Summary: Patient with history of indwelling catheter states urine is leaking around catheter, nondraining within catheter. Patient states he has had a catheter for 5 weeks. History of incontinence, had urinary catheter placed for convenience versus wearing diapers all the time. History of prostatectomy. Denies any other pain, injury or symptoms. - History of Current Complaint Chief Complaint: EDUrogenitalProblems Time Seen by Provider: 12/26/18 22:02 Stated Complaint: CATHETER NEEDS TO BE FLUSHED PER PT Hx Obtained From: Patient Onset/Duration: Started Hours Ago Timing: Constant Severity: Moderate Current Severity: Moderate Pain Intensity: 5 Location of Pain: Groin Additional Locations for Males: Penis Pain Characteristics: Dull Associated Signs and Symptoms: Positive: Negative - Additional Pertinent History Primary Care Physician: FREDDY - Allergy/Home Medications Allergies/Adverse Reactions: Allergies Allergy/AdvReac Type Severity Reaction Status Date / Time doxycycline Allergy GI Upset Verified 12/26/18 21:24 Penicillins Allergy Unknown Verified 12/26/18 21:24 Reaction Details sulfamethoxazole Allergy Nausea And Verified 12/26/18 21:24 [From Bactrim] Vomiting trimethoprim [From Bactrim] Allergy Nausea And Verified 12/26/18 21:24 Vomiting PMH/Surg Hx/FS Hx/Imm Hx Endocrine/Hematology History: Reports: Hx Anticoagulant Therapy - ASA, Hx Diabetes - type 2 dm Cardiovascular History: Reports: Hx Coronary Artery Disease, Hx Hypercholesterolemia, Hx Hypertension - recent decrease in meds, Hx Valvular Heart Disease, Other Cardiovascular Problems/Disorders - AFIB with cardioversion in June 2018 Denies: Hx Angina, Hx Myocardial Infarction Respiratory History: Denies: Hx Asthma, Hx Chronic Obstructive Pulmonary Disease (COPD) History: Reports: Other Problems/Disorders - radical prostatectomy 15 yrs ago Sensory History: Reports: Hx Contacts or Glasses Denies: Hx Hearing Aid Opthamlomology History: Reports: Hx Contacts or Glasses Neurological History: Denies: Hx CVA Psychiatric History: Denies: Hx Autism - Cancer History Cancer Type, Location and Year: prostate. skin cancer on nose Hx Radiation Therapy: Yes - Surgical History Surgery Procedure, Year, and Place: prostatectomy with radiation; 09/26/13 cardiac stents and 2 stent 2012 ,aeortic valve replacement, open heart surgery, bypass Hx Anesthesia Reactions: No Infectious Disease History: No Infectious Disease History: Denies: History Other Infectious Disease, Traveled Outside the [place] in Last 30 Days - Family History Known Family History: Negative: Hypertension, Seizure Disorder - Social History Alcohol Use: None Hx Substance Use: No Substance Use Type: Reports: None Hx Tobacco Use: Yes Smoking Status (MU): Former Smoker Type: Cigarettes Review of Systems Constitutional: Negative Eyes: Negative ENT: Negative Cardiovascular: Negative Respiratory: Negative Gastrointestinal: Negative Genitourinary: Other Musculoskeletal: Negative Skin: Negative Neurological: Negative Psychological: Normal All Other Systems Reviewed And Are Negative: Yes Physical Exam - Summary Physical Exam Summary: genitalia normal. Catheter not draining. New catheter was attempted but was unable to be fully inserted. Urine still draining from penis. Triage Information Reviewed: Yes Vital Signs On Initial Exam: Initial Vitals Temp Pulse Resp BP Pulse Ox 96.8 F 97 20 204/120 96 12/26/18 21:23 12/26/18 21:23 12/26/18 21:23 12/26/18 21:23 12/26/18 21:23 Vital Signs Reviewed: Yes Appearance: Positive: Well-Appearing Skin: Positive: Warm Head/Face: Positive: Normal Head/Face Inspection Eyes: Positive: Normal Neck: Positive: Supple Respiratory/Lung Sounds: Positive: Clear to Auscultation Cardiovascular: Positive: Normal Abdomen Description: Positive: Nontender Male Genital Exam: Positive: Normal Genitalia Musculoskeletal: Positive: Normal Neurological: Positive: Normal Psychiatric: Positive: Normal AVPU Assessment: Alert - Mitzy Coma Scale Best Eye Response: 4 - Spontaneous Best Motor Response: 6 - Obeys Commands Best Verbal Response: 5 - Oriented Coma Scale Total: 15 Diagnostics - Vital Signs Vital Signs Temp Pulse Resp BP Pulse Ox 12/26/18 21:23 96.8 F 97 20 204/120 96 - Laboratory Lab Statement: Any lab studies that have been ordered have been reviewed, and results considered in the medical decision making process. GIGU Course/Dx - Course Course Of Treatment: Patient with history of indwelling catheter states urine is leaking around catheter, nondraining within catheter. Patient states he has had a catheter for 5 weeks. History of incontinence, had urinary catheter placed for convenience versus wearing diapers all the time. History of prostatectomy. Denies any other pain, injury or symptoms. Vital signs within normal limits. New catheter unable to be fully inserted despite 2 attempts. Patient still leaks urine from his penis, so able to void. Long history of same. There was placed only for convenience to avoid having to wear diapers all the time. States he will follow up with urology tomorrow for new catheter. - Diagnoses Provider Diagnoses: Fraser catheter problem Discharge ED - Sign-Out/Discharge Documenting (check all that apply): Patient Departure Patient Received Moderate/Deep Sedation with Procedure: No - Discharge Plan Condition: Stable Disposition: AGAINST MEDICAL ADVICE Referrals: Adrienne Wallace MD [Primary Care Provider] - Additional Instructions: Follow-up with urology in the morning. Return to the ED for any worsening symptoms. - Billing Disposition and Condition Condition: STABLE Disposition: Against Medical Advice
[2018-12-26] MEDS ORDERED: Metoprolol Succinate XL TAB* 50 MG PO ONE (22:10)
[2018-12-27 00:05] VITALS: BP 129/68
== END 2018-12-26 23:59 | disposition left against medical advice (07) ==
LOC: ED 21:21
DX: T83.9XXA Unspecified complication of genitourinary prosthetic device, implant and graft, initial encounter (principal); Z88.0 Allergy status to penicillin; Z79.01 Long term (current) use of anticoagulants; I25.10 Atherosclerotic heart disease of native coronary artery without angina pectoris; E78.00 Pure hypercholesterolemia, unspecified; I10 Essential (primary) hypertension; Z85.828 Personal history of other malignant neoplasm of skin; Z87.891 Personal history of nicotine dependence
CPT/HCPCS: 99212; 99282; A9270-GY; G0463

== ENCOUNTER → 2019-02-17 07:13 | Day surgery (SDC) | payer MEDICARE, BC ==
--- NOTE | 2019-02-13 21:00 | HP ---
CC: Dr. Wallace * HISTORY AND PHYSICAL: DATE OF PLANNED ADMISSION AND SURGERY: 02/17/19 HISTORY OF PRESENT ILLNESS: Mr. Lorenz is an 83-year-old white male who is admitted with bladder neck contracture, bladder calculus, suspicious bladder lesions, for cystoscopy, cystolitholapaxy, and bladder biopsies. Please refer to the detailed history and physical for the patient's medical condition by Dr. Wallace dated 02/07/19, and the detailed cardiac note by Dr. Quiroz dated 11/07/18. My dictation will be related mostly to his urological history. Mr. Lorenz was diagnosed in 1997 with prostate carcinoma and in October 1997, he underwent a radical retropubic prostatectomy. The pathology showed bilateral [place] 7 disease with capsular invasion making him at the stage 3 disease. His postop PSA was still detectable at 0.6. The patient went to [place] where he received a full course of salvage external beam radiation therapy. This was completed in June 1998. He responded well with his PSA remaining minimally detectable. He however developed complications from the radiation therapy with bladder neck contracture, urinary incontinence, requiring frequent urethral dilations. In June 2008, while in [place], he had a cystoscopy and injection of Macroplastique in the bladder neck to help control his urinary incontinence. He had another injection of the same materia in April 2009. As a complication of these injections and the effecct of the radiation therapy, he developed severe scarring of the bladder neck and was alternating between retention and total incontinence. He required frequent urethral dilations and fulgurations of bleeders in the bladder neck and in the bladder. His PSA has been detectable at 0.4. He has not required any additional treatment for his prostate cancer. The patient has been practically in diapers all this time with minimal residual urine. I saw him in August 2018 after a hiatus of 4 years from my office. He was having difficulty voiding, incontinence, partial urinary retention. He was performing intermittent dilation of his urethra. He developed tight phimosis, buried penis, and he was unable to identify the opening of the foreskin and of the urethral meatus and was unable to perform self dilations. He also was having on and off episodes of gross hematuria. He walked into my office four months ago because of the above voiding problems. I managed to dilate his phimosis, identify the urethral meatus, which was severely stenotic. The urethral meatus was successfully dilated sequentially with stiff catheters and I tried to do a cystoscopy, but the cystoscope could not be passed beyond the bladder neck because of the rigid fibrosis. I managed to dilate his urethra and the bladder neck and put a 14 Fraser catheter. The catheter had to be replaced frequently because the balloon kept being punctured and deflated, with the catheter falling off. I recently performed a flexible cystoscopy in my office. There was a rigid membranous urethra, a calculus measuring 1.5 cm that was impacted at the bladder neck. The calculus had sharp edges that were puncturing his Fraser catheters balloon, explaining the frequent falling out of the Fraser with the balloon deflated. The cystoscopy also showed diffuse hyperemia and edema of the bladder wall with . The appearance was consistent with either radiation cystitis or chronic cystitis; however, bladder tumor could not be ruled out. CT urogram was obtained showing normal kidneys and ureters, no hydroureteronephrosis, no abnormal filling defects in the collecting systems or the ureters, a thick deflated bladder wall. No pelvic masses. On exam, he is moderately overweight male. No CVA or abdominal tenderness. He has a Fraser catheter in place draining clear urine. Tight phimosis. No penile lesions. Normal testes. Rectal exam shows absent prostate, empty rectal fossa, some flat firmness consistent with radiation effect. The patient now is admitted for cystoscopy, dilation of the bladder neck, cystolitholapaxy, and multiple bladder biopsies. The patient understands that he is going to be incontinent as he has been all along. He will be most likely managed with a chronic Fraser catheter. I discussed the above plans with the patient, all his questions were answered. Regarding his medical history and his physical exam, they are detailed in Dr. Wallace's and in Dr. Quiroz's notes. The Plavix was discontinued 4 days prior to this admission. [id number]/[id number] #: [id number] SADE
[~2019-02-17 07:13] MED LIST: Buffered Lidocaine 1% SYRIN* 1 ML/SYRINGE INTRADERM ONE; Dexamethasone IV* 4 MG/ML 1 ML (4 MG) ONE; Famotidine IV* 10 MG/ML 2 ML (20 mg) IV ONE; Famotidine IV* 10 MG/ML 2 ML (20 mg) ONE; Glycopyrrolate IV* 0.2 MG/ML 1 ML VIAL ONE; HYDROmorphone INJ1* 1 MG/ML SYRINGE IV PRN; KETAMINE HCL* 50 MG/ML 10 ML VIAL ONE; Lactated Ringers 1000 ML Bag* 1,000 ML IV SCH; Lidocaine 2% PF * 5 ML VIAL ONE; Midazolam* 1 MG/ML 5 ML VIAL (5 MG) ONE; Naloxone* 0.4 MG/ML 1 ML VIAL IV PRN; Neostigmine Methylsulfate* 1 MG/ML 10 ML VIAL (1 mg/ml) ONE; Ondansetron INJ* 2 MG/ML VIAL IV PRN; Ondansetron INJ* 2 MG/ML VIAL ONE; Propofol* 10 MG/ML 20 ML BTL ONE; VASOPRESSIN 20 UNITS/ML 1 ML VIAL ONE; cefTRIAXone(*) 2 GM ADDV.VIAL IVPB ONE; fentaNYL* 50 MCG/ML 2 ML VIAL (100 MCG VIAL) IV PRN; fentaNYL* 50 MCG/ML 2 ML VIAL (100 MCG VIAL) ONE
--- NOTE | 2019-02-17 11:32 | OP ---
OPERATIVE REPORT: DATE OF OPERATION: 02/17/19 DATE OF : 35 SURGEON: Hector Simms MD ANESTHESIOLOGIST: Dr. Luciano Mariee. ANESTHESIA: General. PRE-OP DIAGNOSES: 1. Status post radical prostatectomy and radiation therapy for prostate carcinoma. 2. Urinary incontinence. 3. Bladder calculus. 4. Bladder lesions. 5. Small bladder capacity. POST-OP DIAGNOSIS: Same, and pending pathology. OPERATIVE PROCEDURE: 1. Cystoscopy. 2. Cystolitholapaxy. 3. Bladder biopsies. INDICATION FOR PROCEDURE: Mr. Lorenz is an 83-year-old white male who underwent a radical retropubic prostatectomy for [place] 7 stage III adenocarcinoma of the prostate in 1997. Because of PSA detection postoperatively, he completed a full course of external beam radiation therapy one year later. He did very well and his PSA has been minimally detectable. Following the radiation treatments, the patient became incontinent and developed a bladder neck contracture. He was managed in [place] all this time and underwent 2 injections of Macroplastique in his bladder neck. Unfortunately , this resulted in a recurrent bladder neck contractures, alternating between retentions and incontinence. He has been managed with intermittent self- dilation and catheterization. 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 He has been on catheter drainage since his dilation in my office. He is now admitted for cystolitholapaxy and bladder biopsies to rule out any bladder lesions. PATHOLOGY: At cystoscopy, the penile and bulbar urethrae looked normal. 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 There was a lot of fibrotic reactive changes in the bladder neck, which was dilated in the office. Examination of the bladder showed diffuse bladder hyperemia and edema. The ureteral orifices could not be identified. The bladder capacity under anesthesia was minimal, less than 50 cc with leakage of irrigation fluid around the cystoscope. There was a soft bladder calculus measuring about 1 cm. There were no yonas papillary tumors, however, the bladder wall was very irregular and hyperemic. The findings were consistent with either flat bladder tumors, radiation cystitis, or chronic cystitis. DESCRIPTION OF PROCEDURE: After successful general anesthesia, the patient was placed in the lithotomy position and was prepped and draped for cystoscopy. Cystoscopy was performed. The bladder was inspected and the above findings were noted. The inspection of the bladder was suboptimal because the bladder wall could not be distended enough for good visualization due to his small capacity bladder and leakage around the cystoscope. The calculus was identified and was extracted with a basket. It felt soft and I am not sure if it is a stone or necrotic tissue. Using the rigid biopsy forceps, several biopsies were obtained from the left lateral bladder wall, sampling areas that were more prominent and typical of his bladder pathology. There was minimal bleeding from the sites of the biopsies. The cystoscope was then removed. A size 18 Coude catheter was passed inside the bladder and the bladder inflated with 10 cc of water. Irrigation yielded pink returns. The patient tolerated the procedure well and left the operating room in good condition. This patient has a very small bladder capacity making him very difficult case to manage conservatively. Depending upon the biopsy report, we will discuss the options of management. [id number] #: [id number] SADE
[2019-02-17 14:08] VITALS: BP 156/67
== END | disposition home or self-care (01) ==
LOC: OR 07:13
PROVIDERS: ATTEND Urology
DX: N32.89 Other specified disorders of bladder (principal); N21.0 Calculus in bladder; N39.498 Other specified urinary incontinence; R31.0 Gross hematuria; Z85.46 Personal history of malignant neoplasm of prostate; Z79.01 Long term (current) use of anticoagulants; E78.5 Hyperlipidemia, unspecified; M19.90 Unspecified osteoarthritis, unspecified site; I48.91 Unspecified atrial fibrillation; I10 Essential (primary) hypertension; I25.10 Atherosclerotic heart disease of native coronary artery without angina pectoris; I49.3 Ventricular premature depolarization; I34.0 Nonrheumatic mitral (valve) insufficiency
CPT/HCPCS: 88305; 88342; J0696; J1100; J2250; J2405; J2704; J2710; J3010

== ENCOUNTER 2019-09-14 10:27 | Inpatient (IN) ==
[2019-09-14] MEDS ORDERED: Dextrose 50% Syringe 50 ml 25 GM/50 ML SYRINGE IV PUSH PRN (15:00)
[2019-09-14] MEDS ORDERED: oxyCODONE/Acetamin 5/325 mg TAB PO PRN ×2 (15:04→15:06)
[2019-09-14] MEDS ORDERED: Magnesium Hydroxide LIQ 30 ML UDC PO PRN (15:06)
[2019-09-14] MEDS: Insulin LISPRO 100 units/ml(*) SUBCUT SCH ×2 (17:18→20:59)
[2019-09-14] MEDS: Senna TAB 8.6 mg TAB PO PRN (20:57)
[2019-09-15 07:11] LABS: ABS Basophils 0.1 10^3/ul (0-0.2); ABS Eosinophils 0.6 10^3/ul (0-0.6); ABS Lymphocytes 1.1 10^3/ul (1.0-4.8); ABS Monocytes 0.8 10^3/ul (0-0.8); Hematocrit 26 % (42-52); Lymphocyte % 12.5 %; Mean Corpuscular HGB Conc 34 g/dL (31-36); Mean Corpuscular Hemoglobin 31 pg (27-31); Mean Corpuscular Volume 89 fL (80-94); Mean Platelet Volume 7.6 fL (7.4-10.4); Platelet Count 260 10^3/uL (150-450); Red Blood Count 2.93 10^6 /uL (4.18-5.48); Red Cell Distribution Width 13 % (10-15); White Blood Count 9.1 10^3/uL (3.5-10.8)
[2019-09-15 07:30] LABS: Albumin 2.7 g/dL (3.2-5.2); Calcium 8.2 mg/dL (8.6-10.3); EGFR African American 86.1 (>60); EGFR Non-African American 71.2 (>60); Globulin 2.6 g/dL (2-4); Potassium 4.4 mmol/L (3.5-5.0); Total Bilirubin 0.6 mg/dL (0.2-1.0); Total Protein 5.3 g/dL (6.4-8.9)
[2019-09-15] MEDS: Aspirin EC 81 mg TAB.EC (enteric coated) PO SCH (08:51)
[2019-09-15] MEDS: Insulin LISPRO 100 units/ml(*) SUBCUT SCH ×4 (08:51→21:38)
[2019-09-15] MEDS: Senna TAB 8.6 mg TAB PO PRN (21:04)
[2019-09-16] MEDS: Insulin LISPRO 100 units/ml(*) SUBCUT SCH ×4 (07:59→20:39)
[2019-09-16] MEDS: Aspirin EC 81 mg TAB.EC (enteric coated) PO SCH (08:01)
[2019-09-16] MEDS: Senna TAB 8.6 mg TAB PO PRN (20:44)
[2019-09-17] MEDS: Insulin LISPRO 100 units/ml(*) SUBCUT SCH ×4 (08:08→21:33)
[2019-09-17] MEDS: Aspirin EC 81 mg TAB.EC (enteric coated) PO SCH (08:17)
[2019-09-18] MEDS: Aspirin EC 81 mg TAB.EC (enteric coated) PO SCH (10:32)
[2019-09-18] MEDS: Insulin LISPRO 100 units/ml(*) SUBCUT SCH ×4 (10:32→21:23)
[2019-09-19] MEDS: Insulin LISPRO 100 units/ml(*) SUBCUT SCH ×4 (08:29→20:14)
[2019-09-19] MEDS: Aspirin EC 81 mg TAB.EC (enteric coated) PO SCH (08:31)
[2019-09-20] MEDS: Insulin LISPRO 100 units/ml(*) SUBCUT SCH ×4 (07:22→20:34)
[2019-09-20] MEDS: Aspirin EC 81 mg TAB.EC (enteric coated) PO SCH (07:32)
[2019-09-21] MEDS: Insulin LISPRO 100 units/ml(*) SUBCUT SCH ×4 (08:52→21:35)
[2019-09-21] MEDS: Aspirin EC 81 mg TAB.EC (enteric coated) PO SCH (08:54)
[2019-09-22 05:30] LABS: ABS Basophils 0.1 10^3/ul (0-0.2); ABS Eosinophils 0.4 10^3/ul (0-0.6); ABS Lymphocytes 1.5 10^3/ul (1.0-4.8); ABS Monocytes 0.7 10^3/ul (0-0.8); Eosinophil % 4.6 %; Hematocrit 27 % (42-52); Hemoglobin 9.4 g/dL (14.0-18.0); Lymphocyte % 18.2 %; Mean Corpuscular HGB Conc 35 g/dL (31-36); Mean Corpuscular Hemoglobin 31 pg (27-31); Mean Corpuscular Volume 89 fL (80-94); Mean Platelet Volume 6.8 fL (7.4-10.4); Platelet Count 346 10^3/uL (150-450); Red Cell Distribution Width 14 % (10-15); White Blood Count 8.2 10^3/uL (3.5-10.8)
[2019-09-22 05:50] LABS: Albumin 2.9 g/dL (3.2-5.2); Albumin/Globulin Ratio 1.1 (1-3); BUN/Creatinine Ratio 18.1 (8-20); Calcium 8.6 mg/dL (8.6-10.3); EGFR African American 81.4 (>60); EGFR Non-African American 67.3 (>60); Globulin 2.6 g/dL (2-4); Potassium 4.2 mmol/L (3.5-5.0); Total Bilirubin 0.9 mg/dL (0.2-1.0); Total Protein 5.5 g/dL (6.4-8.9)
[2019-09-22] MEDS: Insulin LISPRO 100 units/ml(*) SUBCUT SCH ×4 (07:07→21:03)
[2019-09-22] MEDS: Aspirin EC 81 mg TAB.EC (enteric coated) PO SCH (09:42)
[2019-09-23] MEDS: Insulin LISPRO 100 units/ml(*) SUBCUT SCH ×4 (07:55→21:17)
[2019-09-23] MEDS: Aspirin EC 81 mg TAB.EC (enteric coated) PO SCH (08:12)
[2019-09-24] MEDS: Insulin LISPRO 100 units/ml(*) SUBCUT SCH ×4 (08:04→20:44)
[2019-09-24] MEDS: Aspirin EC 81 mg TAB.EC (enteric coated) PO SCH (08:52)
[2019-09-25] MEDS: Insulin LISPRO 100 units/ml(*) SUBCUT SCH ×4 (09:14→20:04)
[2019-09-25] MEDS: Aspirin EC 81 mg TAB.EC (enteric coated) PO SCH (09:15)
[2019-09-26 06:29] VITALS: BP 145/62
[2019-09-26] MEDS: Insulin LISPRO 100 units/ml(*) SUBCUT SCH ×2 (07:42→14:08)
[2019-09-26] MEDS: Aspirin EC 81 mg TAB.EC (enteric coated) PO SCH (08:37)
== END 2019-09-26 10:00 | disposition home health service (06) | DRG 559 ==
LOC: PMRU 14:14
PROVIDERS: ADMIT Physical Medicine & Rehabilitation; ATTEND Physical Medicine & Rehabilitation